=== PATIENT | male | born 1960 | race Caucasian/White ===

== ENCOUNTER 2023-02-09 19:44 | Emergency (ER) | payer OTHER, MEDICAID, SELFPAY ==
[2023-02-09 19:46] VITALS: BP 179/101; PULSE 105; RESP 15; TEMP 36.7; O2SAT 100; BMI 19.8
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
[2023-02-09 20:52] LABS: Ur Creatinine Normal (Normal); Ur Specific Gravity Normal (Normal); Urine pH Normal (Normal)
[2023-02-09 20:53] LABS: UR Morphine/Opiate cutoff 300 Negative (Negative); Urine Amphetamines Positive (Negative); Urine Barbiturates Negative (Negative); Urine Benzodiazepines Negative (Negative); Urine Cocaine Negative (Negative); Urine MDMA Positive (Negative); Urine Methadone Negative (Negative); Urine Methamphetamines Positive (Negative); Urine Oxycodone Negative (Negative); Urine Phencyclidine Negative (Negative); Urine Tetrahydrocannabinol Positive (Negative); Urine Tricyclic Antidepressant Negative (Negative)
--- NOTE | 2023-02-09 21:30 | PC.NURSE ---
attempted to draw blood, pt refused, then changed his mind, mechanical laboratory technician was in to draw blood, pt moved and dislodged the needle then stated he did not want to be poked again. then was asked by nurse if he would allow us to draw blood, pt stated he did not want to be poked on, explained to pt that detox would require lab work. pt stated he did not want detox, pt was told then the doctor would be told and he dc paper work will be brought in. pt came out to the nurses station told the pt he needed to wait in his room or the waiting room, pt then stated he would wait in the waiting room but he needed to get a ride, explained to pt that we did not provide rides that would be his responsibility and that he could call from the waiting room. pt became up set and stated it was a 10 mile walk pt ambulated to the waiting room without difficulty
== END 2023-02-09 21:15 | disposition home or self-care (01) ==
PROVIDERS: Emergency Provider Emergency Medicine
DX: F11.10 Opioid abuse, uncomplicated (principal)
CPT/HCPCS: 80305; 99282; 99283

== ENCOUNTER 2024-04-20 14:19 | Emergency (ER) | payer OTHER, MEDICAID, SELFPAY ==
[2024-04-20 14:22] VITALS: BP 121/74; PULSE 78; RESP 18; TEMP 36.8; O2SAT 98; BMI 22.4
--- NOTE | 2024-04-20 14:27 | DI.RAD.S_ITS ---
PROCEDURE: XR WRIST RT MIN 3V INDICATIONS: fell on bottle, cutting right wrist, diminished sens/movemnt TECHNIQUE: 4 views of the wrist were acquired. COMPARISON: None. FINDINGS: Bones: No fractures or dislocations. No suspicious bony lesions. Soft tissues: No suspicious soft tissue calcifications. Volar laceration. IMPRESSION: No acute bony abnormality. Dictated by: Kofi Mata M.D. on 04/20/2024 at 14:57 Approved by: Kofi Mata M.D. on 04/20/2024 at 14:58
--- NOTE | 2024-04-20 14:27 | DI.RAD.S_ITS ---
PROCEDURE: XR FOREARM RT 2V INDICATIONS: fell on bottle, cutting right wrist, diminished sens/movemnt TECHNIQUE: 2 views of the forearm were acquired. COMPARISON: None. FINDINGS: Bones: No fractures or dislocations. No suspicious bony lesions. Soft tissues: No suspicious soft tissue calcifications or masses. Volar laceration. No radiopaque foreign body. IMPRESSION: No acute bony abnormality. Dictated by: Kofi Mata M.D. on 04/20/2024 at 14:53 Approved by: Kofi Mata M.D. on 04/20/2024 at 14:53
--- NOTE | 2024-04-20 16:06 | PC.NURSE ---
Pt is not able to move middle finger of right hand. Finger is dangling and appears flacid. Bleeding controlled. bandage around right forearm/wrist.
--- NOTE | 2024-04-20 16:36 | ED_ITS ---
HPI - Wound/Laceration General Chief Complaint: Wound/Laceration Stated Complaint: Fell down two stiars, wrist lac Time Seen by Provider: 04/20/24 16:19 Source: patient, EMS, RN notes reviewed and old records reviewed Mode of arrival: EMS Limitations: no limitations History of Present Illness HPI narrative: 64-year-old male history of tobacco abuse, opiate use who presents with complaint of laceration to the right forearm/wrist. Patient states he was going down some steps got caught up in a friend's foot fell forward with his arm outstretched and fell onto the ground but there was a glass jar in the ground t hat he stuck his hand into it shattered and cut his hand in several places. Patient states it bled quite a bit. He notes that he has had some difficulty particularly moving the 3rd finger and feels like it is numb has a little bit decreased use of the 4th and 5th fingers but can feel them. 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 States he has good movement of the thumb. Patient states he landed on his shoulder as well but states he is good range of motion denies any other injuries. Denies any significant head injury denies any neck pain or chest pain, no GI or urinary symptoms. Patient states he was not on a daily prescription medications states his tetanus is updated in the last 5 years. Denies any allergies to medications. Does use tobacco daily, denies regular alcohol use, states he uses fentanyl regularly. Related Data Previous Rx's Medication Instructions Recorded cephalexin 500 mg capsule 500 mg PO QID #20 caps 04/20/24 hydrocodone 5 mg-acetaminophen 325 1 tab PO Q6H PRN pain #10 tabs 04/20/24 mg tablet Allergies Allergy/AdvReac Type Severity Reaction Status Date / Time No Known Drug Allergies Allergy Verified 02/09/23 19:48 Review of Systems Review of Systems ROS Unobtainable: All systems reviewed & are unremarkable except as noted in HPI and below Patient History Social History Smoking Status: Current every day smoker Smoking Status: Current every day smoker tobacco type: cigarettes alcohol intake frequency: holidays/special occasions only Exam Narrative Exam Narrative: GENERAL: Alert and oriented x three, male in mild distress HEENT: Head normocephalic, atraumatic, EOMI, pupils reactive, face symmetric, moist mucous membranes NECK: Supple, full range of motion CARDIOVASCULAR: Regular rate and rhythm without murmurs, rubs or gallops. RESPIRATORY: Breath sounds equal bilaterally, no wheezes rales or rhonchi. ABDOMEN: Soft, nontender. Normoactive bowel sounds all 4 quadrants. No guarding or rebound, rigidity, no mass : No CVA tenderness EXTREMITIES: Normal range of motion at right shoulder and elbow, patient has good movement of the wrist but is painful. He can flex and extend his thumb has movement of the 4th and 5th digits but has minimal movement of the 3rd digit. Has decreased sensation of the 3rd digit has had a traumatic amputation distal to the middle interphalangeal joint which appears healed. Has cap refill less than 2 seconds in all 5 fingers. Evaluation of the midline incision proximally 3-1/2 cm into the soft tissue I can see exposure of the tendon and with movement particularly of the 3rd finger I can see movement of the tendon but no connection that appears to be severed completely. Unclear if any nerve involvement but patient does have decreased sensation and middle finger. There appears to be little bit of fascial or tendon involvement just adjacent but has no movement with the other fingers. Patient's ulnar side laceration proximally 2 cm into the soft tissue but does not appear to have any tendon or vascular involvement.. Patient has a deep callus which appears split over the thenar eminence but does not appear to be lacerated. 2+ radial pulse. No bony tenderness of the hand,, wrist, forearm or elbow , no clubbing or edema. Neurovascularly intact NEUROLOGICAL: Cranial nerves II through XII grossly intact. Moving all extremities SKIN: Warm, dry, no petechiae, no rashes or lesions other than noted above. Initial Vital Signs Initial Vital Signs: Vital Signs Temperature 98.2 F 04/20/24 14:22 Pulse Rate 78 04/20/24 14:22 Respiratory Rate 18 04/20/24 14:22 Blood Pressure 121/74 04/20/24 14:22 Pulse Oximetry 98 04/20/24 14:22 Oxygen Delivery Method Room Air 04/20/24 14:22 Course Orders Ordered: ED Orders 04/20/24 14:27 XR forearm RT 2V Stat XR wrist RT min 3V Stat 04/20/24 17:48 Consult to [facility] [place] - Administrative And Program Specialist Stat Discontinued Medications Hydrocodone Bitart/Acetaminophen (Hydrocodone/Acet 5/325 Tablet) 1 tab PO NOW ONE Stop: 04/20/24 17:51 Last Admin: 04/20/24 18:00 Dose: 1 tab Documented By: Bacitracin (Bacitracin Oint 0.9 Gm Pckt) 1 applic TOP NOW ONE Stop: 04/20/24 17:52 Last Admin: 04/20/24 18:00 Dose: 1 applic Documented By: Cephalexin HCl (Cephalexin 250 Mg Capsule) 500 mg PO NOW ONE Stop: 04/20/24 17:51 Last Admin: 04/20/24 18:00 Dose: 500 mg Documented By: Lidocaine HCl (Lidocaine 2% Inj Sdv 5ml) 2 ml INJ NOW ONE Stop: 04/20/24 16:45 Morphine Sulfate (Morphine 4 Mg/Ml Inj) 4 mg IM NOW ONE Stop: 04/20/24 16:45 Last Admin: 04/20/24 16:49 Dose: 4 mg Documented By: Vital Signs Vital signs: Vital Signs - 8 hr 04/20/24 14:22 04/20/24 18:38 Temperature 98.2 F 98.4 F Pulse Rate 78 66 Respiratory Rate 18 16 Blood Pressure 121/74 134/78 Pulse Oximetry 98 98 Oxygen Delivery Method Room Air Room Air MDM - Wound/Laceration Imaging Data Extremity x-ray #1: Radiologist's Impression: [place] [address] XRay Report Signed Patient: Mike Lam MR#: [id number] : 1960 Acct:[id number] Age/Sex: 64 / M Date of Service: 04/20/24 Loc: ED Accession Number: [id number] Procedure: XR forearm RT 2V Ordering Provider: Layne Del Cid D.O. PROCEDURE: XR FOREARM RT 2V INDICATIONS: fell on bottle, cutting right wrist, diminished sens/movemnt TECHNIQUE: 2 views of the forearm were acquired. COMPARISON: None. FINDINGS: Bones: No fractures or dislocations. No suspicious bony lesions. Soft tissues: No suspicious soft tissue calcifications or masses. Volar lace ration. No radiopaque foreign body. IMPRESSION: No acute bony abnormality. Dictated by: Kofi Mata M.D. on 04/20/2024 at 14:53 Approved by: Kofi Mata M.D. on 04/20/2024 at 14:53 Extremity x-ray #2: Radiologist's Impression: Close Wrist X-Ray (Signed) Kofi Mata - 04/20/24 Forearm X-Ray (Signed) Kofi Mata - 04/20/24 Launch?[address] [address] XRay Report Signed Patient: Mike Lam MR#: [id number] : 1960 Acct:[id number] Age/Sex: 64 / M Date of Service: 04/20/24 Loc: ED Accession Number: [id number] Procedure: XR wrist RT min 3V Ordering Provider: Layne Del Cid D.O. PROCEDURE: XR WRIST RT MIN 3V INDICATIONS: fell on bottle, cutting right wrist, diminished sens/movemnt TECHNIQUE: 4 views of the wrist were acquired. COMPARISON: None. FINDINGS: Bones: No fractures or dislocations. No suspicious bony lesions. Soft tissues: No suspicious soft tissue calcifications. Volar laceration. IMPRESSION: No acute bony abnormality. Dictated by: Kofi Mata M.D. on 04/20/2024 at 14:57 Approved by: Kofi Mata M.D. on 04/20/2024 at 14:58 [facility] Narrative Medical decision making narrative: Right Forearm x-ray is negative Right Wrist x-ray is negative. 64-year-old male reports fall with laceration lateral laceration does not appear to have any tendon involvement but midline laceration on the volar side appears to have tendon involvement and has and appears to be fully transected. Patient had suture repair but spoke with Dr. Almendarez from Orthopedic surgery prior to closure of the midline laceration she will have patient return for tendon repair in the OR. Patient was washed out here in the department, states tetanus is up-to-date was started on antibiotics. Short course of oral antibiotic and pain medication was provided with return precautions. Dr. Paz orthopedic surgery, discussed tendon appears to be lacerated likely Trejo through possibly radial carpal versus digitorum profundus. Recommends antibiotics, closure of the wound and we will have patient OR possibly tomorrow or the following day. Korina Paz orthopedic surgery called back. Plan for OR on April 22Saturday at 0900 checkin time. 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 States he does have a place to stay, states he was able to access transportation states he can fill prescriptions. Discharge Plan Departure Patient Disposition: Home Clinical Impression: Tendon laceration, Laceration of right wrist Instructions: DI for Laceration Repair Activity Restrictions/Additional Instructions: Return to [facility] to check in for surgery at 9:00 a.m. on SaturdayApril [address] Paz for tendon repair. You will need follow up in 7-10 days for removal of the sutures not related to your surgery. You can follow up with primary care, urgent care or the emergency department for suture removal. Take oral antibiotics until completed. You can take [place] 1-2 tablets every 6 hours as needed for pain. This medication can make you sleepy do not drive, perform hazardous activities or make any major decisions while taking it. This medication will make you constipated please take a stool softener once to twice daily until stools are soft and regular. Prescription sent to [facility] in [place]. Wound Care: Keep wound(s) clean and dry. Wash daily with soap and water only. Do not use over the counter products (alcohol or peroxide)on the wounds unless instructed by a physician. You can use triple antibiotic ointment to the affected area If wound condition worsens (increased/expanding redness, developing fluid blisters, or worsening pain), either contact your doctor for an urgent re- assessment , or return to the Emergency Department. Please return for fevers, any redness, swelling, increasing pain, new numbness tingling or weakness, discoloration that is pale, blue were read of your fingers or hand or other new or concerning changes. Prescriptions: New cephalexin 500 mg capsule 500 mg PO QID Qty: 20 0RF hydrocodone-acetaminophen 5-325 mg tablet 1 tab PO Q6H PRN (Reason: pain) Qty: 10 0RF Referrals: Katia Paz MD [Physician] - Stand Alone Forms: Patient Portal/API/Survey
[2024-04-20] MEDS: MORPHINE 4 MG/ML INJ IM (16:49)
[2024-04-20] MEDS: HYDROCODONE/ACET 5/325 TABLET 1 TAB PO (18:00)
[2024-04-20] MEDS: BACITRACIN OINT 0.9 GM PCKT 1 APPLIC TOP (18:00)
[2024-04-20] MEDS: cephALEXin 250 MG CAPSULE 500 MG PO (18:00)
--- NOTE | 2024-04-20 18:30 | PC.NURSE ---
Volar splint placed to right wrist. Pt tolerated well.
--- NOTE | 2024-04-20 18:34 | CM.SWNOTE ---
ED CAP SEWER Assessment Note: Pt is a 64yo male, resident of [place], presents to the ED for a wrist laceration after a fall. Pt lives in a house XXX. Pt's Primary Care Provider is XXX and insurance is XXX. Reviewed chart and discussed with multidisciplinary team pt's medical status and initial discharge needs. CAP SEWER entered room to meet with patient, introduced self and role. Pt endorses? Recommendation of providers, plan? CAP SEWER reviews this with ED provider XXX who indicates agreement and understanding. Plan: Pt to discharge with XXX. HAYLIE Mcneil
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
[2024-04-20 18:38] VITALS: BP 134/78; PULSE 66; RESP 16; TEMP 36.9; O2SAT 98
== END 2024-04-20 18:39 | disposition home or self-care (01) ==
PROVIDERS: Emergency Provider Emergency Medicine
DX: S66.821A Laceration of other specified muscles, fascia and tendons at wrist and hand level, right hand, initial encounter (principal); W01.110A Fall on same level from slipping, tripping and stumbling with subsequent striking against sharp glass, initial encounter
CPT/HCPCS: 12001; 29125; 73090; 73110; 96372; 99284; J2270

== ENCOUNTER 2024-04-22 09:02 | Day surgery (SDC) | payer OTHER, SELFPAY ==
[2024-04-22 09:52] VITALS: BP 130/84; PULSE 85; RESP 18; TEMP 36.4; O2SAT 98; BMI 22.4
--- NOTE | 2024-04-22 09:59 | P.HP_ITS ---
History of Present Illness History of Present Illness Date Patient Seen: 04/22/24 Time Patient Seen: 09:59 Date of Onset of Symptoms: 04/20/24 Chief complaint: Right Incision and Drainage Wound/Extremity Narrative: The patient is a 64-year-old male that is left-hand dominant. He fell going down stairs and landed on a glass jar sustaining laceration to his volar right wrist. He has seen 2 separate lacerations 1 just proximal to the wrist crease in 1 at the base of the thumb metacarpal, CMC joints. 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 He endorses pain difficulty moving his middle finger and numbness in his palmar hand since the injury. He was seen in the emergency room wounds were closed and he was given a prescription for antibiotics and referred to Orthopedic surgery. Lives in his car. He was indicated for surgery for exploration possible repair of structures as indicated and presents for surgery today. He denies any other injuries. He denies any allergies to medications. States he has not picked up his antibiotic prescription yet. He notes that he can move his middle finger but it hurts to. [facility] Medical History Amputation of finger, right Social History Smoking Status: Current every day smoker alcohol intake: current Meds Home Medications and Allergies Home Medications Medication Instructions Recorded Confirmed Type cephalexin 500 mg capsule 500 mg PO QID #20 caps 04/20/24 Rx hydrocodone 5 mg-acetaminophen 325 1 tab PO Q6H PRN pain #10 tabs 04/20/24 Rx mg tablet Allergies Allergy/AdvReac Type Severity Reaction Status Date / Time No Known Drug Allergies Allergy Verified 02/09/23 19:48 Review of Systems Review of Systems ROS: Yes All systems reviewed with the patient and are negative except as otherwise documented Exam Vital Signs (past 8 hours): - 04/22/24 09:52 Temperature 97.5 F L Pulse Rate 85 Respiratory Rate 18 Blood Pressure 130/84 Pulse Oximetry 98 Oxygen Delivery Method Room Air Oxygen Delivery Method Room Air Narrative Exam Narrative: Alert and oriented male in no acute distress Respiratory lungs clear to auscultation Heart regular rate and rhythm Nontoxic appearing Left upper extremity benign. Right upper extremity demonstrates previous amputation of the index finger at the proximal phalanx well-healed stump. There are 2 volar lacerations. One central volar laceration at the level of the wrist crease with some nylon sutures. A smaller more radial laceration around the basilar thumb area that is also sutured. There was no streaking no purulence or drainage. The patient's hand is in a resting position with flexion of the small and ring finger and extension of the middle finger. With effort the patient was able to demonstrate some active flexion of the middle finger with pain. He does demonstrate thumb IP joint flexion and extension. Appears to have an altered flexion and extension of the ring and small finger. He endorses decreased sensation over the palmar median nerve distribution. Fingers are warm and well perfused. Elbow is benign. Endorses sensation along the radial aspect of the ring finger as well as ulnar aspect. Objective Imaging X-ray right wrist: My impression: Three views of the right wrist AP oblique and lateral demonstrate partial visualization of the known index finger amputation through proximal phalanx with deformity at the index metacarpal. No acute fracture is demonstrated. Assessment & Plan Assessment and plan (1) Laceration of right wrist: Qualifiers: Encounter type: initial encounter Qualified Code(s): S61.511A - Laceration without foreign body of right wrist, initial encounter Status: Acute (2) Tendon laceration: Status: Acute Plan Patient was two volar wrist lacerations with a suspected tendon and potential nerve involvement. Level of the largest lacerations right at the wrist crease concern for FDS and median nerve injury. He will require open exploration of the lacerations and repair of structures as possible. I discussed with the patient that these can include vessels tendons and nerves. I discussed variable recovery with nerve injury may have permanent numbness stiffness pain and lack of motion we will require additional procedures. The risks and benefits of the procedure have been discussed with the patient and given the opportunity to ask questions. The risks of surgery include but are not limited to infection, persistent dysfunction, persistence of pain, damage to nerves and blood vessels, posttraumatic arthritis, DVT, PE, cardiopulmonary complications and . The patient expressed a thorough understanding of the risks and benefits of surgery and has elected to proceed. Consent was signed. Time-Based Coding :: [TOTAL MINUTES] spent with patient and on the chart (including review of chart, obtaining history, exam, reviewing outside data, placing orders, documenting exam and treatment plan, and counseling patient) on [DATE].
[2024-04-22] MEDS: CEFAZOLIN 2 GM/100 ML PREMIX 100 ML IV (12:15)
--- NOTE | 2024-04-22 12:24 | SUR.OPER ---
Supine on padded OR bed, head on pillow, arms secured on padded arm boards at <90 degrees abduction, legs uncrossed, safety belt at thigh, tape over blanket over lower legs.
[2024-04-22] MEDS: BUPIVACAINE 0.25% W/ EPI 30 ML VIAL 60 ML INJ (12:31)
[2024-04-22] MEDS: LACTATED RINGERS 1,000 ML 42 ML IV (13:43)
[2024-04-22 14:27] VITALS: BP 111/64; PULSE 85; RESP 14; TEMP 36.7; O2SAT 95
[2024-04-22 14:32] VITALS: BP 109/71; PULSE 83; RESP 14; O2SAT 94
--- NOTE | 2024-04-22 14:33 | P.OP_ITS ---
Operative Date/Time/Diagnoses Date of procedure: 04/22/24 Time of procedure: 14:35 Pre-op diagnosis: Right wrist laceration deep flexor tendon injury, nerve injury Post-op diagnosis: other (Laceration wrist transverse 5 cm deep, complete median nerve laceration, complete flexor digitorum profundus and flexor digitorum superficialis to the middle finger, flexor digitorum profundus to the index finger and flexor digitorum superficialis to the ring finger and laceration palmaris longus) Procedure & Clinicians Procedure: 1. Repair median nerve CPT code 07135 right 2. Carpal tunnel release CPT code 65369 right 3. Repair flexor digitorum profundus to the middle finger CPT code 53614 4. Repair flexor digitorum superficialis to the middle finger CPT code 84733 5. Repair flexor digitorum superficialis to the ring finger CPT code 16294 6. Repair flexor digitorum profundus to the index finger CPT code 82141 7. Exploration laceration right wrist CPT code 65267 right 8. Repair wrist laceration right modifier 59 for separate site separate wrist laceration from the structures listed above Same procedure as scheduled: Yes Indications: The patient is a 64-year-old left-hand dominant male that fell on a glass jar and sustained a 4-1/2 cm transverse laceration to his volar right wrist he also sustained a separate 3 cm laceration at the base of thumb metacarpal. He was noted to have no active flexion of his middle finger he did have active flexion of the ring and small finger. He has a previous index finger partial amputation at the level of the proximal phalanx that is remote injury. He endorses numbness in the palmar distribution of his median nerve. He was indicated for exploration of his lacerations and repair of structures as indicated. The risks and benefits of the procedure have been discussed with the patient and given the opportunity to ask questions. The risks of surgery include but are not limited to infection, malunion, nonunion, persistence of pain, damage to nerves and blood vessels, posttraumatic arthritis, DVT, PE, coardiopulmonary complications and . The patient expressed a thorough understanding of the risks and benefits of surgery and has elected to proceed. Consent was signed --we further discussed the risks of stiffness infection continued dysfunction tendon rerupture, unpredictable nature of nerve injury and recovery. Surgeon: Katia Paz Click Yes if Unassisted: Yes Anesthesia Type: General and Local Operative Notes Findings: a 5 cm transverse laceration at the level of the wrist crease. Complete transsection of the median nerve at the level of the wrist crease Complete transection of the palmaris longus and FDS and FDP to the middle finger at the level of the wrist crease complete laceration of the FDP to the index fin tristin and 50% laceration of the FDS to the ring finger Separate 3 cm laceration of the radial wrist the base of the thumb metacarpal no obvious significant deep structure injury at the site. FCR intact. FPL intact Closure Type: primary Specimen(s): none sent Estimated Blood Loss (mL): 20 Blood products transfused: none Tourniquet time (min): 81 Procedure in detail: The patient was seen in the preoperative area the site of surgery was marked informed consent confirmed this was the right wrist. The patient was then brought to the operating room by the anesthesia team positioned supine on operative table with a hand table on the right side. The right upper extremity was prepped and draped in the standard sterile fashion with formal time-out procedure confirming the patient's side and site of surgery administration of appropriate preoperative antibiotic. All were in agreement. Attention was turned to the right upper extremity the Esmarch was used for exsanguination the tourniquet raised on the brachium to 250 mmHg. Attention was turned to the wrist. There was a transverse laceration at the level of the wrist crease was approximately 5 cm and this was explored and was deep with obvious tendon lacerations. And the 2nd 3 cm laceration at the radial thumb was also explored this had rough edges and these were carefully excised using sharp scalpel along the 3 cm laceration and this was debrided. Of skin subcutaneous tissue. It was repaired at the end of the case with 4-0 Monocryl 4-0 nylon suture Attention then turned to the transverse laceration at the wrist crease this was about 5 cm long. This was explored noted to have obvious tendon lacerations deep in the wound on exploration of the median nerve was also encountered with complete transection. At this point the scalpel was used to extend the t ransverse incision in fashion curvilinear proximal and then angulated across the wrist crease over the carpal tunnel distally. The carpal tunnel was opened and released to trace the median nerve distally and the forearm was opened proximally to trace the median nerve and tendinous structure ruptures proximally. Once these were exposed the findings identified above were determined. There was a palmaris longus transection this was not repaired. Then the repair started deep to superficial. The wrist and fingers were brought into flexion a 2-0 FiberWire was used in a locking stitch [place] fashion to repair the FDP to the middle finger and the FDP to the index finger. And to then another 2-0 FiberWire was used to repair the greater than 50% laceration of the FDS of the ring finger. Next the FDS to the middle finger was repaired again with a 2-0 FiberWire. After this was completed the median nerve was exposed and carefully approximated and repaired in epineurial fashion with 4 si mple 6 0 nylon sutures placed at 90? from each other 360 around the nerve with care to try to line up the fascicles. Once this was completed the wound was irrigated thoroughly the tourniquet was released hemostasis was achieved. The wound was closed with 2-0 Vicryl 4-0 Monocryl and 3-0 and 4-0 nylon suture with care to maintain the wrist and fingers in flexion to take tension off the repairs. Local anesthetic was administered for postoperative pain control and then a dressing was placed with Xeroform gauze Webril and a splint in wrist and finger flexion to protect the repair. Patient was awoken from anesthesia and taken to the recovery room in good condition there were no immediate complications from the procedure. Counts were correct. Complications: none Post-operative Condition: stable Disposition: PACU Plan for aftercare: Keep the dressing and splint in place until 1st postoperative appointment. Elevate the hand. Keep the splint dry. It was okay to wiggle the fingers lately but no forceful gripping or stretching of the fingers no lifting objects heavier than a phone. After 1st postop we will get removable splint with the hand therapist. We will keep splint on except for exercises with direction of therapist. Stitches will stay in 2-4 weeks. Weaning from splint we will start at 6 weeks postop. We will wear a splint at night until week 10. Can lift up to 5 lb at 10 weeks 10 lb at 12 weeks. Nerve recovery is variable and can take months.
[2024-04-22 14:36] VITALS: BP 110/66; PULSE 90; RESP 12; O2SAT 96
[2024-04-22 14:41] VITALS: BP 106/68; PULSE 86; RESP 12; TEMP 36.6; O2SAT 96
[2024-04-22] MEDS: OXYCODONE IR 5 MG TABLET PO (14:46)
[2024-04-22 16:51] VITALS: BP 115/75; PULSE 81; RESP 15; TEMP 36.6; O2SAT 99
== END 2024-04-22 16:53 | disposition home or self-care (01) ==
PROVIDERS: Referring Provider Orthopaedic Surgery Foot and Ankle Surgery; Visit Provider Orthopaedic Surgery Foot and Ankle Surgery
PROC: (CPT 64835; principal; 2024-04-22 12:15)
DX: S61.511A Laceration without foreign body of right wrist, initial encounter (principal); S64.11XA Injury of median nerve at wrist and hand level of right arm, initial encounter; S66.124A Laceration of flexor muscle, fascia and tendon of right ring finger at wrist and hand level, initial encounter; S66.122A Laceration of flexor muscle, fascia and tendon of right middle finger at wrist and hand level, initial encounter; S66.120A Laceration of flexor muscle, fascia and tendon of right index finger at wrist and hand level, initial encounter; W10.9XXA Fall (on) (from) unspecified stairs and steps, initial encounter; F17.210 Nicotine dependence, cigarettes, uncomplicated
CPT/HCPCS: 64835; 25260 ×2; 26370 ×2; 20103; J0330; J0690; J1100; J1171; J1885; J2250; J2405; J2704; J3010

== ENCOUNTER 2024-05-15 12:00 | Inpatient (IN) | payer OTHER, SELFPAY ==
--- NOTE | 2024-05-15 13:54 | PC.NURSE ---
Day shift: Pt has not arrived at this time 8135. Dr Paz is aware of him not being here yet. He is a direct admit.
--- NOTE | 2024-05-15 15:01 | P.HP_ITS ---
History of Present Illness History of Present Illness Date Patient Seen: 05/15/24 Time Patient Seen: 15:01 Chief complaint: right wrist Infection Narrative: The patient is a 64-year-old left-hand dominant male that fell on a glass jar and sustained a 4-1/2 cm transverse laceration to his volar right wrist he also sustained a separate 3 cm laceration at the base of thumb metacarpal. He was noted to have no active flexion of his middle finger he did have active flexion of the ring and small finger. He has a previous index finger partial amputation at the level of the proximal phalanx that is remote injury. He underwent surgery by Dr Paz on 04/22/2024, FDS and FDP repair of the middle finger and repair of the median nerve. He saw Dr Paz in the office earlier today for a routine follow up visit. He had some persistent erythema around his incision but was found to have a new area of swelling/boil formation just ulnar to the previous incision and proximal to the wrist crease. [facility] Medical History (Updated 05/15/24 @ 15:09 by Regine Mckay PA-C) Current recreational drug use Amputation of finger, right Surgical History (Updated 05/15/24 @ 09:41 by Kimberlyn Fan RN) History of orthopedic surgery (04/22/24) Social History Smoking Status: Current every day smoker alcohol intake: current Meds Home Medications and Allergies Home Medications Medication Instructions Recorded Confirmed Type cephalexin 500 mg capsule 500 mg PO QID #20 caps 04/20/24 Rx cephalexin 500 mg capsule 500 mg PO TID #15 caps 04/22/24 Rx gabapentin 300 mg capsule 300 mg PO TID #30 caps 04/22/24 Rx ondansetron 4 mg disintegrating 4 mg PO Q8HR PRN nausea and 04/22/24 Rx tablet vomiting #5 tabs oxycodone 5 mg tablet 5 mg PO Q4H PRN pain #30 tabs 04/22/24 Rx Allergies Allergy/AdvReac Type Severity Reaction Status Date / Time No Known Drug Allergies Allergy Verified 02/09/23 19:48 Review of Systems Review of Systems ROS: Yes All systems reviewed with the patient and are negative except as otherwise documented Exam Extrem Other: RUE exam shows grossly normal alignment. Incision is healing and there is some scabbing distally. No drainage from the incision. Focal erythema around incision. There is a new swelling or boil with fluctuance ulnar to the incision line concerning for underlying abscess. He is able to fully flex and extend his ring and small fingers. He has full extension and limited flexion of the middle finger and no active FDP function. Previous index finger amputation. Demonstrates thumb flexion and extension. Stable numbness in median nerve distribution. Objective Labs Labs: CBC, BMP, ESR, CRP ordered and pending. Assessment & Plan Assessment and plan (1) Abscess of hand, right: Status: Acute Plan Examination of the hand concerning for abscess formation, and pt was directly admitted from the office to the hospital for IV antibiotics. Plan is for surgical exploration and wash-out tomorrow by Dr Paz. Time-Based Coding :: [TOTAL MINUTES] spent with patient and on the chart (including review of chart, obtaining history, exam, reviewing outside data, placing orders, documenting exam and treatment plan, and counseling patient) on [DATE].
[2024-05-15 15:33] VITALS: BMI 18.4
[2024-05-15 16:11] VITALS: BMI 18.4
[2024-05-15 16:25] LABS: Hematocrit 33.9 % (41-53); Hemoglobin 11.6 g/dL (13.5-17.5); Mean Corpuscular HGB Conc 34.1 % (30-36); Mean Corpuscular Hemoglobin 30.3 PG (26-34); Mean Corpuscular Volume 88.9 fL (80-100); Platelet Count 276 X10^3/uL (150-400); Red Blood Cell Count 3.81 X10^6/uL (4.5-5.9); Red Cell Distribution Width 13.1 % (11.6-14.8); White Blood Cell Count 7.6 X10^3/uL (4.5-11.0)
[2024-05-15 16:40] LABS: Estimated Glomerular Filt Rate > 60 mL/min (>60)
[2024-05-15 16:43] LABS: Neutrophils Absolute Manual 5928 /uL (3000-5900); RBC Morphology Normal Morphology; Total Cells Counted 100
[2024-05-15 16:44] LABS: C-Reactive Protein Quant < 0.5 mg/dL (<1.0)
[2024-05-15] MEDS: LACTATED RINGERS 1,000 ML 42 ML IV (16:56)
[2024-05-15] MEDS: PIPERACILLIN/TAZO 3.375 GM in SODIUM CHLORIDE 0.9% 100 ML IV (16:57)
[2024-05-15 16:59] LABS: Erythrocyte Sedimentation Rate 31 MM/HR (0-15)
[2024-05-15 17:18] LABS: BUN Creatinine Ratio 38.3 (6-22); Blood Urea Nitrogen 23 mg/dL (9-20); Calcium 8.8 mg/dL (8.4-10.2); Carbon Dioxide 23 mmol/L (22-32); Chloride 103 mmol/L (98-107); Estimated Glomerular Filt Rate > 60 mL/min (>60); Glucose 136 mg/dL (80-110); HEMOLYSIS 38 (0-50); Potassium 4.2 mmol/L (3.4-5.1); Sodium 137 mmol/L (137-145)
--- NOTE | 2024-05-15 17:22 | PC.NURSE ---
Patient admitted for r.wrist infection, he is going to have an i&d in the morning. Patient is alert and oriented x4, he is getting LR at 42cc/hr and also some zosyn now. Photos can be seen under notes.
[2024-05-15] MEDS: VANCOMYCIN 1,250 MG/250 ML PIGGYBACK 250 MG IV (18:09)
[2024-05-15 18:32] VITALS: BP 114/69; PULSE 68; RESP 20; TEMP 36.6; O2SAT 98
[2024-05-15 20:00] VITALS: BP 136/85; PULSE 70; RESP 19; TEMP 36.8; O2SAT 98
[2024-05-15 20:17] VITALS: BP 136/85; PULSE 70; RESP 18; TEMP 36.8; O2SAT 98
[2024-05-15] MEDS: ACETAMINOPHEN 325 MG TABLET 650 MG PO (21:30)
[2024-05-16] VITALS (15 sets, daily range): BP systolic 124–167; BP diastolic 15–105; PULSE 60–96; RESP 12–20; TEMP 36.2–37.5; O2SAT 96–100; BMI 18.4
[2024-05-16] MEDS: PIPERACILLIN/TAZO 3.375 GM in SODIUM CHLORIDE 0.9% 100 ML IV ×3 (00:49→20:17)
[2024-05-16] MEDS: VANCOMYCIN 1,250 MG/250 ML PIGGYBACK 250 MG IV ×2 (02:38→16:51)
[2024-05-16] MEDS: OXYCODONE IR 10 MG TABLET PO ×3 (03:27→16:55)
--- NOTE | 2024-05-16 03:30 | PC.NURSE ---
Patient made this RN aware that he took fentanyl around 1600 on 05/15/2024 and will be withdrawing soon. Also states R wrist pain, 10mg of oxycodone given.
--- NOTE | 2024-05-16 07:53 | PM.PREOP ---
Pre-operative Note Interval Note History & Physical reviewed/Exam performed by Physician: Yes Changes to H&P: No
--- NOTE | 2024-05-16 08:14 | P.OP_ITS ---
Operative Date/Time/Diagnoses Date of procedure: 05/16/24 Time of procedure: 09:00 Pre-op diagnosis: Right wrist abscess, deep Surgical site infection, deep Traumatic wrist laceration with tendon involvement ,infection Rupture zone 5 hand flexor tendons-FDS and FDP to middle finger Opioid use disorder Post-op diagnosis: same Procedure & Clinicians Procedure: 1. Irrigation debridement skin subcutaneous tissue and tendon CPT code 15891, sharp excision abscess. 2. Repair FDS and FDP to middle finger Same procedure as scheduled: Yes Indications: The patient is a 64-year-old male, left-hand dominant that had a traumatic right wrist laceration with median nerve laceration and multiple zone 5 flexor tendon lacerations. He had a debridement and repair of his median nerve and flexor tendons onto 07/2024. Noted to have persistent erythema around the incision. Incision is healed but there is a new area of swelling and a boil, abscess starting to form ulnar to the previous incision for the wrist and just proximal to the wrist crease. He has not had fevers or chills but he has not resolved despite oral antibiotic treatment and the area has been increasing over the last few days. He was indicated for inpatient admission for IV antibiotics and operative treatment of his deep wrist infection and abscess. He also has noted decreased flexion of the D IP of the middle finger over the last week and a suspected to have ruptured his FDP to the middle finger. FDS appears intact. The risks and benefits of the procedure have been discussed with the patient and given the opportunity to ask questions. The risks of surgery include but are not limited to infection, need for additional procedures possible wound care for healing by secondary intention or wound VAC placement,, need for prolonged antibiotics persistence of pain, damage to nerves, persistence of nonbilious, incomplete recovery, risk of damage toblood vessels, stiffness, DVT, PE, cardiopulmonary complications and . The patient expressed a thorough understanding of the risks and benefits of surgery and has elected to proceed. Consent was signed. Surgeon: Katia Paz Click Yes if Unassisted: Yes Anesthesia Type: General and Local Operative Notes Findings: 2 x 3 cm area of fluctuance proximal to the previous transverse laceration ulnar to the extension of the healed previous incision Closure Type: primary Specimen(s): other (Tissue sent for culture and PCR) Estimated Blood Loss (mL): 30 Blood products transfused: none Tourniquet time (min): 70 Procedure in detail: The patient was seen in the preoperative area the site of surgery was marked informed consent confirmed this was the right wrist. He was noted to have some decreased with erythema with the IV antibiotics overnight but increased size of the abscess and fluctuance and indicated for surgical exploration and debridement. He was seen by the anesthesia team and then taken to the operative room and positioned supine on operative table with a hand table on the right side. Bony prominences were well padded. SCDs were on the legs. A brachial tourniquet was placed. The right upper extremity was prepped and draped in the standard sterile fashion . a formal time-out procedure was performed confirming the patient's side and site of surgery administration of the appropriate antibiotics. The patient was on scheduled vanc and Zosyn and Zosyn dosing at the time of surgery. All were in agreement. Attention was turned to the right hand. [place] exsanguination was completed. And the tourniquet raised on the arm to 250 mm of mercury. Attention was turned to the right wrist a slightly ulnar incision was made centered over the abscess and longitudinal. Total incision length approximately 7 cm. The abscess was ellipsed to size sharply with a scalpel with incision through the skin. The area of abscess was ellipsed size this was 2 x 1 cm. Tenotomy scissors were used to dissect through the subcutaneous tissues. This was done under loupe magnification. Incision was extended. To the level of the wrist crease and taken across the wrist crease in an extensile Z fashion. Flaps were opened. There was copious scar tissue and immediate purulence on incision over the abscess. Culture swabs were sent. Meticulous dissection was taken through the scarred tissue bed. The median nerve was visualized and protected. The previous repair site for the median nerve was visualized with the sutures and intact. The torn fiber wires suture repairs of the FDS and FDP for the middle finger were identified. The tendon and torn off away from the FiberWire on the FDS so the suture was intact but the was gapped. And the FDP was torn. The rongeur was used to remove nonviable synovium tendon and subcutaneous tissue. Once this was complete and the distal and proximal tendon ends were exposed the wound was irrigated with 3 L of saline using the cysto tubing. After this gloves and instruments were changed. The FDS and FDP tendon ends were grasped using the 2-0 FiberWire in a modified Reed suture with 4 core passes and a primary repair was attainable restoring flexor tendons to the middle finger. This was careful to be done in a symmetric excursion to the intact small and ring finger to avoid over tightening. There was significant scarring and extensive dissection was required. After the repair was completed finger was taken through range of motion no gapping was visualized. At this point the tourniquet was released and hemostasis was achieved using pressure. The bipolar cautery was also utilized. And Gelfoam and thrombin pad was used distally. After this was completed hemostasis was achieved. Vancomycin powder 1 g was placed within the wound. The wound was closed with 2-0 PDS and 3-0 nylon sutures. Was able to be approximated primarily. To aid with healing and drainage and swelling management and incisional wound VAC was placed the borders were reinforced and Adaptic was placed over the incision and the small wound VAC sponge was fashioned over the incision this was secured in taken to 125 mmHg suction. And good suction with appropriate seal was obtained. Kerlix dressing was applied and the patient was placed back into his dorsal blocking splint he was awoken from anesthesia and taken to the recovery room in good condition there were no immediate complications from this procedure. Complications: none Post-operative Condition: stable Disposition: PACU Plan for aftercare: Maintain right wrist and forearm dorsal blocking splint. May do gentle active flexion of the fingers and extension as limited by the dorsal blocking splint. Maximum 1 lb lift with the right hand. We will maintain incisional wound VAC through the weekend. And I will do a wound check on Saturday. Discussed with the patient depending on appearance he may need returned to OR this tentatively scheduled for Saturday but if looks okay on wound check on Saturday may discontinue with IV antibiotics. Anticipate need for continued outpatient antibiotics we will order PICC line. And wait for culture finalization. Internal medicine hospitalist were consulted to help with appropriate chronic pain management for this opiate dependent the patient. May also need social work help for this. Has been on Suboxone and methadone in the past. Not currently but was using fentanyl outside the hospital setting. We will be placed on some long-acting agents while in the hospital.
--- NOTE | 2024-05-16 08:26 | PC.NURSE ---
Day shift: Pt off unit for I&D at approx 0820. IV Antibiotic infusing per MAR.
--- NOTE | 2024-05-16 09:19 | SUR.OPER ---
Supine on padded OR bed, head on pillow, left arm secured on padded arm boardat <90 degrees abduction, right arm resting on hand table, legs uncrossed, safety belt at thigh, tape over blanket over lower legs.
--- NOTE | 2024-05-16 10:24 | PC.NURSE ---
Day shift: Pt remains of ACU at this time 1024.
[2024-05-16] MEDS: THROMBIN (RECOMBINANT) 5,000 UNIT VIAL 5000 UNIT TOP (10:47)
[2024-05-16] MEDS: VANCOMYCIN 1,000 MG VIAL 1000 MG TOP (10:48)
[2024-05-16] MEDS: OXYCODONE IR 5 MG TABLET PO (11:26)
[2024-05-16] MEDS: HYDROMORPHONE 1 MG INJ IV (11:41)
[2024-05-16] MEDS: LACTATED RINGERS 1,000 ML 100 ML IV (12:21)
[2024-05-16] MEDS: ACETAMINOPHEN 325 MG TABLET 650 MG PO ×2 (12:34→23:12)
[2024-05-16] MEDS: diphenhydrAMINE 25 MG TABLET 50 MG PO (12:34)
[2024-05-16] MEDS: HYDROMORPHONE 2 MG INJ IV ×4 (12:52→20:17)
--- NOTE | 2024-05-16 12:57 | PT-IP ANOTE ---
check with nurse and stated that pt is in tons of pain and is not ready to walk and do PT. will f/u.
--- NOTE | 2024-05-16 13:02 | PC.NURSE ---
Day shift: Pt back in room from PACU at approx 1200. He complaints of pain at surgery area. Medicated for pain per MAY. Can move fingers on rt hand but said It really hurts to move them. BP elevated 161/105 on arrival. RA 100%. Other VS WNL. Wound-Vac patent and functioning with no kinks in line. Rt hand/wrist has a brace in place. Pt also stated This really sucks coming down and off Fentanyl. Call light in reach. Pt did also void on arrival approx 450 mls clear yellow. Plan is for PICC line to be placed. IV Vanco causing burning sensation at left IV site. Stopped it and running LR per MAY. Agrees to not get OOB w/o help from staff. Instructed on I.S. use as well.
[2024-05-16] MEDS: METHADONE 10 MG TABLET 20 MG PO ×3 (14:35→20:09)
[2024-05-16] MEDS: GABAPENTIN 300 MG CAPSULE PO ×2 (14:35→20:08)
--- NOTE | 2024-05-16 14:51 | P.CONS_ITS ---
History of Present Illness Consult details Date Patient Seen: 05/16/24 Time Patient Seen: 13:30 Chief complaint: right wrist Infection Narrative: This is a 64-year-old male that fell on a glass jar and was status post median nerve and flexor tendon laceration repair earlier in april, in clinic follow up he had evidence of deep infection with fluctuance and erythema and is now s/p washout with orthopedic surgery. Medicine team was consulted for opiate use management. Patient takes $30 worth of fentanyl daily, also uses some methamphetamines. Denies EtOH symptoms. He states he gets withdrawal symptoms when not taking opiates. He denies any current symptoms, but does feel mildly anxious and sweaty after surgery. Pain is controlled at this time. Meds Home Medications and Allergies Home Medications Medication Instructions Recorded Confirmed Type gabapentin 300 mg capsule 300 mg PO TID #30 caps 04/22/24 05/15/24 Rx ondansetron 4 mg disintegrating 4 mg PO Q8HR PRN nausea and 04/22/24 05/15/24 Rx tablet vomiting #5 tabs hydromorphone 4 mg tablet 4 mg PO Q4H PRN pain 05/15/24 05/15/24 History Allergies Allergy/AdvReac Type Severity Reaction Status Date / Time No Known Drug Allergies Allergy Verified 05/16/24 08:36 Review of Systems Review of Systems Narrative: All other systems reviewed with the patient and are negative unless otherwise stated. Exam Vital Signs (past 8 hours): - 05/16/24 08:33 05/16/24 11:17 05/16/24 11:22 Temperature 97.8 F 97.1 F L Pulse Rate 67 96 H 93 H Respiratory Rate 16 15 14 Blood Pressure 124/76 153/79 H 167/15 H Pulse Oximetry 96 98 96 Oxygen Delivery Method Room Air Room Air Room Air Oxygen Flow Rate 05/16/24 11:27 05/16/24 11:32 05/16/24 11:37 Temperature 97.6 F Pulse Rate 89 82 82 Respiratory Rate 12 16 16 Blood Pressure 157/102 H 158/99 H 153/94 H Pulse Oximetry 98 98 99 Oxygen Delivery Method Room Air Room Air Room Air Oxygen Flow Rate 05/16/24 11:42 05/16/24 11:47 05/16/24 12:14 Temperature 97.6 F 98.4 F Pulse Rate 77 79 76 Respiratory Rate 16 16 16 Blood Pressure 156/97 H 147/96 H 161/105 H Pulse Oximetry 100 100 100 Oxygen Delivery Method Room Air Room Air Oxygen Flow Rate 0 05/16/24 12:45 05/16/24 13:56 Temperature 98.1 F Pulse Rate 60 75 Respiratory Rate Blood Pressure 162/95 H 158/97 H Pulse Oximetry 99 100 Oxygen Delivery Method Oxygen Flow Rate 0 Oxygen Delivery Method Room Air Oxygen Flow Rate 0 Narrative Exam Narrative: Gen: disheveled male, WDWN, no acute distress, mildly anxious appearing CV: RRR no m/r/g Pulm: CTA b/l Ext: No edema, R hand dressed, moves fingers well no numbness Objective Labs 05/15/24 16:15 05/15/24 16:15 Labs: Laboratory Results - last 24 hr 05/15/24 05/15/24 05/15/24 16:15 16:15 16:15 WBC 7.6 RBC 3.81 L Hgb 11.6 L Hct 33.9 L MCV 88.9 MCH 30.3 MCHC 34.1 RDW 13.1 Plt Count 276 Total Counted 100 Seg Neutrophils % 78.0 H Lymphocytes % (Manual) 19.0 L Monocytes % (Manual) 3.0 Neutrophils # (Manual) 5928 H RBC Morphology Normal morphology ESR 31 H Sodium 137 Potassium 4.2 Chloride 103 Carbon Dioxide 23 BUN 23 H Creatinine 0.60 L 0.60 L Estimated GFR > 60 > 60 BUN/Creatinine Ratio 38.3 H Glucose 136 H Calcium 8.8 C-Reactive Protein < 0.5 NT-Pro-B Natriuret Pep Cancelled [facility] Medical History (Updated 05/15/24 @ 15:09 by Regine Mckay PA-C) Current recreational drug use Amputation of finger, right Surgical History (Updated 05/15/24 @ 09:41 by Kimberlyn Fan RN) History of orthopedic surgery (04/22/24) Social History household members: none Tobacco & Substance Use Smoking Status: Current every day smoker alcohol intake: current Assessment & Plan Assessment & Plan narrative: 1. RUE abscess - management per orthopedic service, currently on zosyn and vancomycin, cultures pending - pain management as noted below 2. Opiate dependence and withdrawal - started methadone 20 QID, will increase prn pain control with oxycodone 10 mg and 15 mg prn, also have IV dilaudid as well. After surgery mild hypertension, tachycardia, and anxiety likely due to withdrawal already. - he likely has significant tolerance for opiates so may need higher dosing for pain control. - narcan is ordered in case of overdosing. Code: Full DVT: HSQ I have utilized all available immediate resources to obtain, update, or review the patient's current medications. Dispo: patient admitted under inpatient status. Will discharge home when able. Medicine will continue to follow along. Additional history obtained via discussions with the ER provider. These discussions contributed to the creation of the above assessment and plan. I have reviewed patient's presenting documentation, labs, and imaging personally. Time-Based Coding :: [TOTAL MINUTES] spent with patient and on the chart (including review of chart, obtaining history, exam, reviewing outside data, placing orders, documenting exam and treatment plan, and counseling patient) on [DATE].
--- NOTE | 2024-05-16 15:31 | CM.DANOTE ---
Initial DCP Assessment Note Pt is a 64 yo male, currently living in his RV- parked on a friend's property. Patient with initial injury to his wrist, He underwent surgery by Dr Paz on 04/22/2024. Patient admitted, Inpatient admission, anticipated stay least 3 days for culture and sensitivity final irrigation and antibiotic plan. S/p I+D of deep abscess. PCP: Did not assess, likely no PCP currently Payer: [employer] Reviewed chart, received consult request stating that patient requests assistance with treatment for substance use disorder. Met w/patient, introduced self. Patient complains of pain, drowsy. Remains polite. Patient reports he lives in his RV which is parked on a friend's property. Patient uses fentanyl and meth daily. Patient had weaned himself off fentanyl and meth approx a month or two ago - had been receiving Suboxone and Methadone at [facility]. Patient becomes upset, saying that Suboxone and Methadone still make you sick when you come off of it. Patient admits with prompting that Suboxone and Methadone act differently in the body than fentanyl and meth. Patient does not want to discuss KARIN treatment and recovery today, requests a visit another time. SW contact information left on white board. SW team will follow clinical course closely, anticipate further assessment of need at bedside. ALDA Moctezuma Discharge Planning/Care Management CM Discharge Assessment Start: 05/16/24 15:25 Freq: Status: Active Protocol: Document 05/16/24 15:25 MARTIN (Rec: 05/16/24 15:31 MARTIN [id number]) Discharge Planning Assessment Assigned Learning Disabilities Specialist ALDA Rachel DPOA/Assigned Designee Name mother Waterman Contact Information [phone] Advance Directives? No Advance Directives on File No History Provided By Patient,Medical Record Prior Living Arrangements RV Comment Patient has had his RV parked on a friend's property for approx a year Household Members none Type of transporation used prior to Drives own vehicle admit Independent with ADL's Yes Is patient alert and oriented? Yes Comment KARIN treatment/recovery resources Discharge Plan Home Transportation Arrangement Self vs friend Whiteboard Updated in Patient Room with Yes name and ext. # of Learning Disabilities Specialist Comment Encouraged patient to contact SW team if questions and desire to talk arises.
--- NOTE | 2024-05-16 17:19 | DI.RAD.S_ITS ---
PROCEDURE: XR CHEST FOR PICC 1V INDICATIONS: PICC placement COMPARISON: None. FINDINGS: PICC was placed by the intravenous therapy team from the left side. Fluoroscopic spot film demonstrates the tip of PICC projecting to the area of mid SVC. IMPRESSION: Tip of PICC projects to the area of mid SVC. Approved by: Josué Taylor M.D. on 05/16/2024 at 17:08
[2024-05-16] MEDS: HEPARIN 5,000 UNIT/ML VIAL 5000 UNIT SUBCUT (20:09)
[2024-05-16] MEDS: OXYCODONE IR 10 MG TABLET 15 MG PO (23:12)
[2024-05-17] VITALS: BP 144/103; PULSE 67; RESP 12; TEMP 37.2; O2SAT 98
[2024-05-17] MEDS: VANCOMYCIN 1,250 MG/250 ML PIGGYBACK 250 MG IV ×3 (00:37→17:53)
[2024-05-17] MEDS: PIPERACILLIN/TAZO 3.375 GM in SODIUM CHLORIDE 0.9% 100 ML IV (03:58)
[2024-05-17] MEDS: HYDROMORPHONE 2 MG INJ IV (04:46)
[2024-05-17 06:48] LABS: Add Manual Diff / Slide Review NO; Basophils Absolute Auto 100 /uL (0-100); Basophils Percent Auto 0.5 % (0-2); Eosinophils Absolute Auto 100 /uL (0-450); Eosinophils Percent Auto 0.7 % (2-4); Hematocrit 38.9 % (41-53); Hemoglobin 12.9 g/dL (13.5-17.5); Lymphocytes Absolute Auto 1000 /uL (1100-4500); Lymphocytes Percent Auto 8.7 % (25-40); Mean Corpuscular HGB Conc 33.2 % (30-36); Mean Corpuscular Hemoglobin 29.5 PG (26-34); Mean Corpuscular Volume 88.7 fL (80-100); Monocytes Absolute Auto 500 /uL (0-900); Monocytes Percent Auto 4.7 % (3-14); Neutrophils Absolute Auto 9700 /uL (1500-7000); Neutrophils Percent Auto 85.4 % (50-75); Platelet Count 286 X10^3/uL (150-400); Red Blood Cell Count 4.38 X10^6/uL (4.5-5.9); Red Cell Distribution Width 13.4 % (11.6-14.8); White Blood Cell Count 11.4 X10^3/uL (4.5-11.0)
[2024-05-17 07:02] LABS: BUN Creatinine Ratio 18.3 (6-22); Blood Urea Nitrogen 11 mg/dL (9-20); Calcium 8.8 mg/dL (8.4-10.2); Carbon Dioxide 28 mmol/L (22-32); Chloride 103 mmol/L (98-107); Estimated Glomerular Filt Rate > 60 mL/min (>60); Glucose 109 mg/dL (80-110); HEMOLYSIS < 15 (0-50); Potassium 3.6 mmol/L (3.4-5.1); Sodium 138 mmol/L (137-145)
[2024-05-17 08:04] VITALS: BP 143/95; PULSE 69; RESP 20; TEMP 36.6; O2SAT 98
[2024-05-17] MEDS: OXYCODONE IR 10 MG TABLET 15 MG PO (08:08)
[2024-05-17] MEDS: HEPARIN 5,000 UNIT/ML VIAL 5000 UNIT SUBCUT (08:09)
[2024-05-17] MEDS: GABAPENTIN 300 MG CAPSULE PO ×3 (08:09→20:22)
[2024-05-17] MEDS: METHADONE 10 MG TABLET 20 MG PO ×4 (08:09→20:23)
[2024-05-17] MEDS: DOCUSATE 100 MG CAPSULE PO (08:10)
[2024-05-17] MEDS: ACETAMINOPHEN 325 MG TABLET 650 MG PO (08:10)
--- NOTE | 2024-05-17 09:32 | PM.PNPO.1 ---
Subjective Subjective Interval history: Patient is postoperative day 1. Of a irrigation and debridement of the abscess to the right hand. Patient also had a repeat repair of his flexor tendon laceration to his middle finger. Patient is doing very well today. No complaints. Exam Vital Signs (past 8 hours): - 05/17/24 08:04 Temperature 97.9 F Pulse Rate 69 Respiratory Rate 20 Blood Pressure 143/95 H Pulse Oximetry 98 Oxygen Flow Rate 0 Oxygen Delivery Method Room Air Oxygen Flow Rate 0 Narrative Exam Narrative: Patient is in his dorsal blocking splint. Is able to demonstrate active flexion of the middle ring and small finger. Dressing is intact. Objective Labs 05/17/24 06:41 05/17/24 06:41 Labs: Laboratory Results - last 24 hr 05/17/24 06:41 WBC 11.4 H RBC 4.38 L Hgb 12.9 L Hct 38.9 L MCV 88.7 MCH 29.5 MCHC 33.2 RDW 13.4 Plt Count 286 Neut % (Auto) 85.4 H Lymph % (Auto) 8.7 L [place] % (Auto) 4.7 Eos % (Auto) 0.7 L Baso % (Auto) 0.5 Neut # (Auto) 9700 H Lymph # (Auto) 1000 L [place] # (Auto) 500 Eos # (Auto) 100 Baso # (Auto) 100 Sodium 138 Potassium 3.6 Chloride 103 Carbon Dioxide 28 BUN 11 Creatinine 0.60 L Estimated GFR > 60 BUN/Creatinine Ratio 18.3 Glucose 109 Calcium 8.8 PFSH Medical History (Updated 05/15/24 @ 15:09 by Regine Mckay PA-C) Current recreational drug use Amputation of finger, right Surgical History (Updated 05/15/24 @ 09:41 by Kimberlyn Fan RN) History of orthopedic surgery (04/22/24) Social History household members: none Smoking Status: Current every day smoker alcohol intake: current Assessment & Plan Post-op Postoperative Procedures: Procedures Operation Date: 05/16/24 09:00 Actual Procedure Side Surgeon p Irrigation and debridement wrist infection, repair of structures as indicated Right Katia Paz MD s Flexor/Extensor Tendon Repair Hand Right Katia Paz MD Postoperative day: 1 Postoperative plan: routine post-op care Postoperative plan narrative: Patient will have a wound check tomorrow. Possible return to the OR on Saturday depending on the status of the wound. Quality VTE Deep Vein Thrombosis/Pulmonary Embolism Present on Admission: No
--- NOTE | 2024-05-17 09:41 | P.PN_ITS ---
Subjective Subjective Interval history: 64 M admitted via orthopedic surgery, medicine consulted for opiate use and withdrawal. He is doing well today with methadone 20 mg QID. Oxycodone does not seem to help his acute pain as much, will try to switch to oral dilaudid instead. Exam Vital Signs (past 8 hours): - 05/17/24 08:04 Temperature 97.9 F Pulse Rate 69 Respiratory Rate 20 Blood Pressure 143/95 H Pulse Oximetry 98 Oxygen Flow Rate 0 Oxygen Delivery Method Room Air Oxygen Flow Rate 0 Narrative Exam Narrative: Gen: disheveled male, WDWN, no acute distress CV: RRR no m/r/g Pulm: CTA b/l Ext: No edema, R hand dressed, moves fingers well no numbness Objective Labs 05/17/24 06:41 05/17/24 06:41 Labs: Laboratory Results - last 24 hr 05/17/24 06:41 WBC 11.4 H RBC 4.38 L Hgb 12.9 L Hct 38.9 L MCV 88.7 MCH 29.5 MCHC 33.2 RDW 13.4 Plt Count 286 Neut % (Auto) 85.4 H Lymph % (Auto) 8.7 L [place] % (Auto) 4.7 Eos % (Auto) 0.7 L Baso % (Auto) 0.5 Neut # (Auto) 9700 H Lymph # (Auto) 1000 L [place] # (Auto) 500 Eos # (Auto) 100 Baso # (Auto) 100 Sodium 138 Potassium 3.6 Chloride 103 Carbon Dioxide 28 BUN 11 Creatinine 0.60 L Estimated GFR > 60 BUN/Creatinine Ratio 18.3 Glucose 109 Calcium 8.8 [facility] Medical History (Updated 05/15/24 @ 15:09 by Regine Mckay PA-C) Current recreational drug use Amputation of finger, right Surgical History (Updated 05/15/24 @ 09:41 by Kimberlyn Fan RN) History of orthopedic surgery (04/22/24) Social History household members: none Smoking Status: Current every day smoker alcohol intake: current Assessment & Plan Assessment & Plan narrative: 1. RUE abscess - management per orthopedic service, currently on zosyn and vancomycin, cultures pending - pain management as noted below - cultures growing staph aureus from the OR, changed antibiotics to ceftriaxone and vanco instead of zosyn and vanco. Can stop vanco if not MRSA. - possible return to OR on saturday per orthopedics depending on his wound. - mild leukocytosis continue to monitor CBC 2. Opiate dependence and withdrawal - After surgery mild hypertension, tachycardia, and anxiety likely due to withdrawal. started methadone 20 QID with adequate control and fairly mimimal withdrawal symptoms yesterday. Doing well today. - he likely has significant tolerance for opiates so may need higher dosing for pain control. He reports no change with oxycodone so will trial change to oral dilaudid which he states he has previously had better results with in the past. - narcan is ordered in case of overdosing. Code: Full DVT: HSQ I have utilized all available immediate resources to obtain, update, or review the patient's current medications. Dispo: patient admitted under inpatient status. Will discharge home when able. Medicine will continue to follow along. Time-Based Coding :: [TOTAL MINUTES] spent with patient and on the chart (including review of chart, obtaining history, exam, reviewing outside data, placing orders, documenting exam and treatment plan, and counseling patient) on [DATE]. Quality VTE Deep Vein Thrombosis/Pulmonary Embolism Present on Admission: No
[2024-05-17] MEDS: cefTRIAXone 1,000 MG in SODIUM CHLORIDE 0.9% 100 ML 200 MG IV (10:30)
--- NOTE | 2024-05-17 12:05 | CM.DPNOTE ---
Addendum entered by ALDA Zavaleta 05/17/24 14:39: per RN, has a wound vac. Per PT, rec home with assistance. WALLY Original Note: DCP Note [employer] OPENER reviewed EMR Pt POD1 I&D. has a PICC. PT/OT pending. per hospitalist in rounds/ortho surgeon note, ortho to recheck wound again Saturday, potential need for another I&D Saturday. Per hospitalist, do not anticipate IV abx at dc. hopeful for PO. consulted to assist with managing pt's Methadone/withdrawal concerns/pain management. P: Medical POC pending. SW team will follow clinical course closely, anticipate further assessment of need at bedside for KARIN treatment/recovery, pending PT/OT recs, final abx need, and if any WC needs at [place]. ALDA Zavaleta
--- NOTE | 2024-05-17 12:17 | PT.IIE ---
Current Diagnoses Cutaneous abscess of right hand (05/15/24) Surgery Performed Operation Date: 05/16/24 09:00 Actual Procedures p Irrigation and debridement wrist infection, repair of structures as indicated(Right) - Katia Paz MD s Flexor/Extensor Tendon Repair Hand(Right) - Katia Paz MD Surgical History (Last Updated 05/15/24 @ 09:41 by Kimberlyn Fan RN) History of orthopedic surgery (04/22/24) Medical History Amputation of finger, right Current recreational drug use Physical Therapy Inpatient Evaluation/Re-Eval M1 PT/OT-IP Prior Functional Status Start: 05/17/24 09:01 Freq: NEEDED Status: Active Protocol: Document 05/17/24 11:50 MB (Rec: 05/17/24 12:17 MB [id number]) Medical Review Prior Functional Status Medical History Reviewed Yes Communication Soft speech, occ difficult to understand and answers most questions Mobility and Gait I, lives in motor home, does not work, states he is detoxing from drugs Social History Household Members none Living Arrangements RV Number of Stairs To Enter/Railing? 2 steps to enter motor home Additional Social History Comment No equipment, motor home has BR, he does not provide any specific information when asked M2 PT-IP Current Condition Start: 05/17/24 09:01 Freq: NEEDED Status: Active Protocol: Document 05/17/24 11:50 MB (Rec: 05/17/24 12:17 MB [id number]) Physical Therapy Current Condition Current Condition Evaluation Date 05/17/24 Treatment Diagnosis Right wrist infection s/p tendon injuries, surgery, vac and splint donned M3 PT-IP Subjective Start: 05/17/24 09:01 Freq: NEEDED Status: Active Protocol: Document 05/17/24 11:50 MB (Rec: 05/17/24 12:17 MB [id number]) Subjective Physical Therapy Visit Type Type Initial Evaluation Visit Start Time 11:50 Visit Stop Time 12:00 Number of [employer] SALESPERSON Visits 0 Physical Therapy Visit Comments Patient Comments Pt agreeable to get up for lunch. Therapy Pain Assessment Pain When Pain Assessed At Rest Pain Present Pain Present Pain Reported Location Right Hand Intensity 5 Scale Used Numeric (0 - 10) M4 PT-IP Mobility and Gait Start: 05/17/24 09:01 Freq: NEEDED Status: Active Protocol: Document 05/17/24 11:50 MB (Rec: 05/17/24 12:17 MB [id number]) PT-Bed Mobility Assessment Supine to Sit Supine to Sit Independent Scooting Scooting to Edge of Bed Standby Assistance PT-Transfer Assessment Sit to and From Stand Sit to and from Stand Standby Assistance,1 Person Assistance,Use of Upper Extremities Equipment Transfer Assistive Device Gait Belt Transfers Transfer Destination Chair Transfer Technique Stepping Transfer Ability Level of Assist Contact Guard Assistance Comments Mobility Comments Pt is somewhat impulsive and agitated occ and does not wait for PT to move sheets and wound vac line before standing up Gait Assessment Gait Gait Assistance Required: Contact Guard Assist Distance (Feet) 20 Assistive Devices Assistive Device Gait Belt Gait Deviations General Gait Pattern Antalgic,Decreased Stride Length,Flexed Trunk Factors Limiting Gait Function Factors Limiting Gait Function Difficulty Following Directions,Pain,Poor Balance, Poor Safety Awareness Comments Gait Comments PT performs CGA at gait belt for mobility this afternoon PT-Balance Assessment Sitting Balance and Reactions Static Sitting Balance Ability Good Dynamic Sitting Balance Ability Good Standing Balance and Reactions Static Standing Balance Ability Fair Dynamic Standing Balance Ability Fair Device Used Gait belt M5 PT-IP Objective Assessments Start: 05/17/24 09:01 Freq: NEEDED Status: Active Protocol: Document 05/17/24 11:50 MB (Rec: 05/17/24 12:17 MB [id number]) Orientation Orientation/Cognition Level of Alertness Alert Orientation Name,Birthday,Month,Year,Place ,Situation Safety Awareness Decreased Safety Awareness Memory Description No Deficits Noted Gross Range of Motion Upper Extremity ROM Assessment Right Impaired Impairments Right hand in splint and wound vac donned Lower Extremity ROM Assessment Within Functional Limits Impairments Functionally observed only today Strength Comments Strength Comments Strength functionally observed only today d/t pt somewhat impulsive, moving before PT doffs covers and manages wound vac line, left up in chair with lunch, call monzon, chair alarm and BULK FILLER aware Coordination Assessment Assessment Coordination Comments Not tested but definitely impaired as pt cannot use his right hand to help set-up lunch and PT assits Sensation Assessment Comments Sensation Comments NT M6 PT-IP Treatment Start: 05/17/24 09:01 Freq: NEEDED Status: Active Protocol: Document 05/17/24 11:50 MB (Rec: 05/17/24 12:17 MB [id number]) Physical Therapy Treatment Education Education Provided Safety M7 PT-IP Assessment and Plan Start: 05/17/24 09:01 Freq: NEEDED Status: Active Protocol: Document 05/17/24 11:50 MB (Rec: 05/17/24 12:17 MB [id number]) PT Summary Assessment and Plan Potential Rehabilitation Potential Fair Status of Condition at Evaluation Evolving Summary Impairments Pain,ROM,Strength,Balance, Coordination,Sensation, Cognition,Bed Mobility, Transfers,Gait,Activity Tolerance Progress Towards Goals Slow Progress - Other Assessment Summary Pt is a 64 y/o male adm with right wrist infection after fall and tendon injury and surgery. Pt with splint and wound vac donned. Pt is mildly impulsive and agitated with PT today once he starts to move, not waiting for PT to fully doff cover and get wound vac line clear. He requires CGA with gait belt assistance for gait around bed to chair. Left with call monzon, chair alarm donned and BULK FILLER aware. Goals Transfer Goal Independent,Cane Gait Goal Independent,Cane Gait Distance 200 Other Goals Pt will ascend and descend 2 steps with left hand on rail to allow safe motor home entrance. Teach cane use in left hand if needed for balance vs I without AD. Days to Meet Goals 5 Frequency of Treatment Frequency Of Treatment Once a Day Other frequency x1 Treatment Plan Physical Therapy Treatment Plan Bed Mobility Training,Transfer Training,Gait Training, Therapeutic Exercise,Balance Retraining,Post Op Education, Discharge Planning,Hot or Cold Pack,Neuromuscular Re-ed, Coordination Retraining,Manual Therapy Precautions Other Precautions Right hand in splint, wound vac, order says WBAT but PT prefers to have pt not use hand in splint, if need AD, can try cane in left hand Weight Bearing Status Weight Bearing Status Weight Bear as Tolerated Recommendations To Nursing Amount of Assist Needed 1 Person Assist Discharge Recommendations PT Discharge Recommendations Home with Assistance Transportation Needs at Discharge Private Vehicle
[2024-05-17] MEDS: HYDROMORPHONE 2 MG TABLET 4 MG PO ×2 (12:32→20:22)
[2024-05-17] MEDS: VANCOMYCIN TROUGH 1 REQUEST MISC (16:56)
[2024-05-17 17:42] LABS: Vancomycin Trough 13.9 ug/mL (10-20)
[2024-05-17 19:00] VITALS: BP 135/88; PULSE 68; RESP 18; TEMP 37.3; O2SAT 98
[2024-05-18] MEDS: VANCOMYCIN 1,250 MG/250 ML PIGGYBACK 250 MG IV ×2 (01:23→08:41)
[2024-05-18 01:37] VITALS: TEMP 36.3
[2024-05-18] MEDS: HYDROMORPHONE 2 MG TABLET 4 MG PO ×3 (01:37→10:14)
--- NOTE | 2024-05-18 06:57 | PC.NURSE ---
Pt had a loose stool tonight, needed to take a shower to get clean up. Unable to collect a stool sample since stool was all over the linens. No drainage noted in the wound vac container. wound vac suction set-up at 75 per Operating room settings.
[2024-05-18 08:00] VITALS: BP 137/94; PULSE 80; RESP 20; TEMP 37; O2SAT 98
--- NOTE | 2024-05-18 08:05 | PM.PNPO.1 ---
Subjective Subjective Date Patient Seen: 05/18/24 Time Patient Seen: 08:06 Interval history: [age] ty[age]-old man left hand dominant status post right hand laceration traumatic median nerve flexor tendon lacerations with a post injury infection and rerupture flexor tendons middle finger.. Status post I and D and rerepair FDS and FDP to middle finger on 05/16/2024 and closure. Wound growing staph aureus. He has been switched to ceftriaxone and vancomycin. He had an incisional wound VAC placed. He was initially on vanc and Zosyn this has been talar to ceftriaxone and vancomycin. He was a past history of drug use fentanyl. No injection drug use. His medications have been adjusted to 20 of methadone q.i.d. and immediate acting Dilaudid which have helped improve his pain control for the last day. Appreciate hospitalist Medicine help with this. The patient was seen in the room. At 1st he was quiet and cooperative his dressing is changed his incisional wound VAC is removed. When discussing recommendations for treatment for his deep infection including typically recommended IV antibiotics for 2-4 weeks and possible consideration of a long-term rehab for this the patient became agitated mentioned that his motor home needed to be moved and he was working on it. He mentioned that the home situation is not good and then he could potentially go to a skilled facility but then became more agitated and angry and stated that he was just going to leave today. Discussed with the patient that this not recommended given his infection and we want to have the best outcome for his hand and reduce the risk of tendon rupture and dysfunction and worsening infection. I discussed his cultures have not finalized and depending on the antibiotic eventually needed in dosing regimen potentially there may be options for home infusions versus long-term or potentially even a oral option but I have encouraged him to stay in the hospital today and continue to receive IV antibiotics until the cultures are finalized and we can make these final recommendations for him. I also discussed with social work, case management and asked the patient to please allow them to have a chance to discuss with him today on options they may be able to help alleviate the stress he feels about his motor home situation and there may be some ways that we can help so that he is able to Feel he can stay and continue his treatment in the hospital. Exam Vital Signs (past 8 hours): - 05/18/24 01:37 Temperature 97.4 F L Oxygen Delivery Method Room Air Oxygen Flow Rate 0 Narrative Exam Narrative: patient was lying in bed alert and oriented no acute distress at 1st- And cooperative with the exam, but becomes agitated when discussing duration of treatment. wrist is examined it was removed from the splint. The incisional VAC is removed. Sutures are clean dry and intact. There is some induration consistent with a hematoma around the incision but no erythema no ascending erythema. Forearm is soft. Fingers are well perfused. There is stable appearance of previous index finger amputation. He was able to demonstrate flexion and extension of the middle ring and small finger. Within the balance of the dorsal blocking splint. Unchanged decrease instability median nerve distribution consistent with the known previous median nerve laceration and repair. New Xeroform gauze and a Kerlix wrap were placed the patient was placed back in his dorsal blocking splint. Objective Labs 05/17/24 06:41 05/17/24 06:41 Labs: Laboratory Results - last 24 hr 05/17/24 16:52 Vancomycin Trough 13.9 PFSH Medical History (Updated 05/15/24 @ 15:09 by Regine Mckay PA-C) Current recreational drug use Amputation of finger, right Surgical History (Updated 05/15/24 @ 09:41 by Kimberlyn Fan RN) History of orthopedic surgery (04/22/24) Social History household members: none Smoking Status: Current every day smoker alcohol intake: current Assessment & Plan Post-op Postoperative Procedures: Procedures Operation Date: 05/16/24 09:00 Actual Procedure Side Surgeon p Irrigation and debridement wrist infection, repair of structures as indicated Right Katia Paz MD s Flexor/Extensor Tendon Repair Hand Right Katia Paz MD Postoperative day: 2 Postoperative status narrative: Repeat flexor tendon repair of the middle finger tendons appears to be holding he does have active flexion fair. And the I and D incision site is healing. There was no purulent drainage. There is less erythema than preoperative it appears to be doing well and progressing with the IV antibiotics. Postoperative plan narrative: 1. Plan would be modified Ford protocol for flexor tendon repair and use of dorsal blocking splint. 2. For the infection current cultures are growing staph aureus. These have not finalized yet. He continues on ceftriaxone and vancomycin. Ideally when finalized he would be tailored to the appropriate antibiotic for the MSSA or MRSA depending on final culture outcome. 3. The patient does express that he was now not interested in placement to receive extended IV antibiotic treatment. I discussed our concern would be risk of recurrent infection and prolonged dysfunction or worsening of his wrist. My recommendation would be to stay in the hospital until cultures are finalized and then discharge to appropriate setting with the appropriate IV antibiotic however if the patient is unwilling or able to receive this then I have recommended staying until cultures are finalized for the best recommendation for an oral antibiotic realizing this may increase the risk of failure but would be the best option available the patient would be willing to receive. I have asked the patient to continue to stay with us for that today and give our public health social worker with a chance to help him with the social stressors he is feeling from situation with a motor home outside the hospital. 4. If he does decide to leave against medical advice later today, recommendation would be sent oral prescription of doxycycline 100 mg b.i.d. for a 28 day course and would have him follow up in [facility] within a week. To reestablish with hand therapy. And for wound check. Time Spent With Patient Time with patient: less than 15 minutes Quality VTE Deep Vein Thrombosis/Pulmonary Embolism Present on Admission: No
[2024-05-18] MEDS: ACETAMINOPHEN 325 MG TABLET 650 MG PO (08:40)
[2024-05-18] MEDS: GABAPENTIN 300 MG CAPSULE PO (08:40)
[2024-05-18] MEDS: METHADONE 10 MG TABLET 20 MG PO (08:40)
[2024-05-18] MEDS: HEPARIN 5,000 UNIT/ML VIAL 5000 UNIT SUBCUT (08:41)
[2024-05-18 09:08] LABS: Add Manual Diff / Slide Review NO; Basophils Absolute Auto 100 /uL (0-100); Basophils Percent Auto 0.6 % (0-2); Eosinophils Absolute Auto 100 /uL (0-450); Eosinophils Percent Auto 0.7 % (2-4); Hematocrit 38.1 % (41-53); Hemoglobin 12.7 g/dL (13.5-17.5); Lymphocytes Absolute Auto 1200 /uL (1100-4500); Lymphocytes Percent Auto 13.2 % (25-40); Mean Corpuscular HGB Conc 33.3 % (30-36); Mean Corpuscular Hemoglobin 29.5 PG (26-34); Mean Corpuscular Volume 88.6 fL (80-100); Monocytes Absolute Auto 400 /uL (0-900); Neutrophils Absolute Auto 7100 /uL (1500-7000); Neutrophils Percent Auto 80.5 % (50-75); Platelet Count 260 X10^3/uL (150-400); Red Cell Distribution Width 13.4 % (11.6-14.8); White Blood Cell Count 8.9 X10^3/uL (4.5-11.0)
[2024-05-18 09:17] LABS: Alanine Aminotransferase 16 IU/L (<50); Albumin Globulin Ratio 1.1 (1.0-2.8); Alkaline Phosphatase 74 U/L (38-126); Aspartate Aminotransferase 24 IU/L (17-59); BUN Creatinine Ratio 21.3 (6-22); Bilirubin Total 0.5 mg/dL (0.2-1.3); Blood Urea Nitrogen 13 mg/dL (9-20); Calcium 9.1 mg/dL (8.4-10.2); Carbon Dioxide 26 mmol/L (22-32); Chloride 105 mmol/L (98-107); Estimated Glomerular Filt Rate > 60 mL/min (>60); Globulin 3.6 g/dL (1.7-4.1); Glucose 112 mg/dL (80-110); HEMOLYSIS < 15 (0-50); Potassium 3.5 mmol/L (3.4-5.1); Sodium 140 mmol/L (137-145); Total Protein 7.6 g/dL (6.3-8.2)
--- NOTE | 2024-05-18 10:09 | PT-IP ANOTE ---
Pt discussed in rounds and pt leaving AMA. Will d/c PT.
--- NOTE | 2024-05-18 10:10 | OT.IPNOTE ---
D/C OT order due to pt deciding to discharge AMA.
[2024-05-18] MEDS: cefTRIAXone 1,000 MG in SODIUM CHLORIDE 0.9% 100 ML 200 MG IV (10:12)
--- NOTE | 2024-05-18 11:11 | CM.DPC ---
Addendum entered by ALDA Montenegro 05/18/24 13:42: ADD: Call from ED staff stating pt is now downstairs at 1245 waiting for his ride that arrived at 1230 but pt was not there where [employer] had planned to strip picker patient since he refused to wait with staff and go down together with staff for transport. SHUN confirmed with [employer] that it was [employer] transport taxi that was scheduled for transport today. SW called [employer] and confirmed they do not have another winch driver for transport today since pt missed his scheduled time. SHUN provided ED Lyly the number for patient to call [employer] himself and figure out a ride home since he chose not to wait for 1230 and missed his scheduled ride. BF Original Note: DCP AMA Cont: Per Trixie PUENTES, still waiting cultures to determine final IV Abx needed at d/c and likely will need for 2 weeks and pt discussing leaving AMA due to stress from needing to move his RV to a different location. Ortho attempted to encourage patient to remain in the hospital for ongoing medical care needs and requesting assist from SW to determine if SNF placement at option at d/c if pt decides to remain admitted for medical treatment. SHUN reached out to the following SNFs to determine if they accept pt's [employer] insurance: [facility]- not contracted [facility]- accept [facility]- left [facility] [facility] [facility] Barriers to SNF placement are pt's current meth and fentanyl use and difficult discharge plan back to RV on friend's property. SHUN confirmed that [facility] also is NOT contracted with [employer]. SHUN met bedside with pt and explained role and pt easily agitated and confirms he was agreeable to remain admitted for his dose of IV-Abx this morning which is currently infusing but plans to d/c AMA today and ideally around 1200. Pt states his RV is on a friend's property who moved into L[facility] and now her property was handed over to the State and it has been condemned. Pt states he is not willing to remain admitted or to go to SNF for ongoing medical care and will leave AMA today and declines any further resources or needs beyond getting transport back to his RV in [facility]. Pt confirms the address is [address] [facility]. Called [employer] and confirmed that pt has [employer] benefits and they were able to schedule [employer] taxi for 1230 for pt back to his RV today. Updated [employer] and RN and they will make sure to get pt to the ED entrance for Medicaid taxi by 1230. ALDA Montenegro
--- NOTE | 2024-05-18 12:15 | PC.NURSE ---
Day shift: Patient stated that he needed to leave today because his motor home is on a friend's property and the property is being condemned. This RN and MD Paz talked to patient about staying in the hospital for more IV antibiotics. Wound culture came back positive for MRSA, let MD Pedroza and MD Paz know. MD Pedroza sent PO doxycyline prescription to [facility] as patient is adamant that he is leaving today. After AM IV antibiotics, this RN pulled PICC and PIV. Told patient about antibiotic prescription and that Medicaid taxi coming at 12:30. At 12:05, patient stated he didn't want to wait any longer. He got dressed, signed AMA paperwork, and walked out. He stated to [facility] that he would wait downstairs for the taxi. All belongings taken by patient.
== END 2024-05-18 12:05 | disposition left against medical advice (07) | DRG 711 ==
PROVIDERS: Internal Medicine; Physician Assistant; Admitting Provider Orthopaedic Surgery Foot and Ankle Surgery; Referring Provider Orthopaedic Surgery Foot and Ankle Surgery; Visit Provider Orthopaedic Surgery Foot and Ankle Surgery
PROC: 0LB70ZZ Excision of Right Hand Tendon, Open Approach (ICD-10-PCS; principal; 2024-05-16 09:00)
PROC: 0LB70ZZ Excision of Right Hand Tendon, Open Approach (ICD-10-PCS; 2024-05-16 09:00)
DX: T81.42XA Infection following a procedure, deep incisional surgical site, initial encounter (principal); M65.031 Abscess of tendon sheath, right forearm; S56.221A Laceration of other flexor muscle, fascia and tendon at forearm level, right arm, initial encounter; F11.23 Opioid dependence with withdrawal; F17.200 Nicotine dependence, unspecified, uncomplicated; B95.62 Methicillin resistant Staphylococcus aureus infection as the cause of diseases classified elsewhere; W25.XXXA Contact with sharp glass, initial encounter; Z53.29 Procedure and treatment not carried out because of patient's decision for other reasons
CPT/HCPCS: 36415; 36569; 36592; 80048; 80053; 80202; 82565; 85025; 85651; 86140; 87070; 87075; 87077; 87147; 87186; 87205; 87801; 97161; J0696; J1171; J1642; J1644; J2405; J2543; J2704; J3010

== ENCOUNTER 2024-08-25 12:38 | Inpatient (IN) | payer OTHER, SELFPAY ==
[2024-08-25 13:12] VITALS: BP 149/72; PULSE 89; RESP 18; TEMP 36.9; O2SAT 98; BMI 21.1
--- NOTE | 2024-08-25 13:49 | DI.CT.S_ITS ---
PROCEDURE: CT UE RT W CON INDICATIONS: RIGHT ?wrist abscess TECHNIQUE: After the administration of intravenous contrast, 3 mm axial sections acquired of the right forearm and right wrist, with coronal and sagittal reformats. COMPARISON: None. FINDINGS: Image quality: Excellent. Bones: Alignment of included right upper extremity is anatomic. No acute fracture or dislocation. No cortical erosion or abnormal periosteal reaction. Osteoarthritic changes are noted in elbow and wrist joints. No suspicious intraosseous lesions. Soft tissues: There is no significant elbow joint effusion or calcified intra- articular loose bodies. There is significant soft T2 knee is subcutaneous fat stranding and skin thickening involving distal forearm particularly in the volar aspect. Ill- defined heterogeneously enhancing hypodense area involving muscle/soft tissue in volar aspect of distal forearm measures up to 1.9 x 1.4 x 2.1 cm in size series 7, image 25 and series 3, image 196 concerning for abscess collection. No other peripherally enhancing fluid collection is seen. No enhancing soft tissue mass is noted. No full-thickness extensor or flexor tendon rupture. IMPRESSION: 1. Extensive cellulitis in distal forearm with suggestion of soft tissue/intramuscular abscess collection in volar aspect of distal forearm measures up to 1.9 x 1.4 x 2.1 cm in size. 2. 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 No fracture or dislocation. No CT evidence of osteomyelitis. Dictated by: Torrey Montoya M.D. on 08/25/2024 at 15:45 Approved by: Torrey Montoya M.D. on 08/25/2024 at 15:52
--- NOTE | 2024-08-25 13:58 | ED.SKABFB ---
HPI - Skin/Abscess/Foreign Bdy <Allen Villalobos PA-C - Last Filed: 08/25/24 19:00> General Chief complaint: Skin/Abscess/Foreign Body Stated complaint: infection right hand Time Seen by Provider: 08/25/24 12:51 Source: patient Mode of arrival: Ambulatory Limitations: no limitations History of Present Illness HPI narrative: 64-year-old male with past medical history opiate abuse presents to the ED with worsening swelling, pain, warmth of the volar aspect of the right wrist. Patient had a surgical intervention on 04/22/2024 to his right wrist due to an injury. Patient subsequently developed an abscess at the same site for which he had a 2nd surgical intervention to drain the abscess. Wound cultures confirmed MRSA. Patient was offered to go to a care facility to continue getting IV antibiotics, however patient deferred that option and opted instead to go home on p.o. antibiotics. Patient was on doxycycline for several weeks. Patient states that his symptoms improved and he felt better. However, last week patient started experiencing pain, swelling, warmth at the site of the injury. No fever, chills, chest pain, shortness of breath, nausea, vomiting, numbness, tingling, weakness, lightheadedness, dizziness, syncope. Related Data Home Medications ?Medication ?Instructions ?Recorded ?Confirmed hydromorphone 4 mg tablet 4 mg PO Q4H PRN pain 05/15/24 05/15/24 Previous Rx's ?Medication ?Instructions ?Recorded gabapentin 300 mg capsule 300 mg PO TID #30 caps 04/22/24 ondansetron 4 mg disintegrating 4 mg PO Q8HR PRN nausea and 04/22/24 tablet vomiting #5 tabs Allergies Allergy/AdvReac Type Severity Reaction Status Date / Time No Known Drug Allergies Allergy Verified 08/25/24 13:12 Review of Systems <Allen Villalobos PA-C - Last Filed: 08/25/24 19:00> Constitutional Constitutional: Denies chills, Denies fatigue, Denies fever(s), Denies frequent falls, Denies lethargy and Denies weakness Eyes Eyes: Denies change in vision, Denies eye discharge, Denies irritation and Denies loss of vision ENT Ears, Nose, Mouth, and Throat: Denies change in voice, Denies dizziness, Denies neck pain, Denies sore throat and Denies throat swelling Cardiovascular Cardiovascular: Denies chest pain, Denies irregular heart rhythm, Denies lightheadedness, Denies palpitations, Denies dyspnea, Denies dyspnea on exertion and Denies orthopnea Respiratory Respiratory: Denies cough, Denies dyspnea, Denies dyspnea on exertion and Denies wheezing Gastrointestinal Gastrointestinal: Denies abdominal pain, Denies change in bowel habits, Denies diarrhea, Denies nausea and Denies vomiting Musculoskeletal Musculoskeletal: Denies neck pain and Denies numbness Integumentary/Breasts Skin/Breast: Denies pruritus, Reports erythema, Denies rash, Reports skin swelling and Reports wounds Neurologic Neurologic: Denies behavioral changes, Denies confusion, Denies dizziness, Denies frequent falls, Denies loss of vision, Denies numbness and Denies weakness Psychiatric Psychiatric: Denies anxiety, Denies behavioral changes, Denies confusion, Denies depression, Denies homicidal ideation and Denies suicidal ideation Endocrine Endocrine: Denies fatigue, Denies flushing and Denies palpitations Hematologic/Lymphatic Hematologic/Lymphatic: Denies easy bruising Allergic/Immunologic Allergic/Immunologic: Denies urticaria, Denies throat swelling and Denies wheezing Patient History <Allen Villalobos PA-C - Last Filed: 08/25/24 19:00> Medical History Current recreational drug use Amputation of finger, right Surgical History History of orthopedic surgery (04/22/24) Social History household members: none Smoking Status: Current every day smoker alcohol intake: current Smoking Status: Current every day smoker tobacco type: cigarettes and vaping alcohol intake frequency: holidays/special occasions only Exam <Allen Villalobos PA-C - Last Filed: 08/25/24 19:00> Narrative Exam Narrative: Const General:?cooperative, healthy appearing and comfortable [facility] Head:?normal to inspection Ears:?hearing grossly normal bilaterally Nose:?external nose normal Face and sinus:?normal facial exam and sinuses nontender Mouth:?oral mucosae normal Throat:?posterior oropharynx normal Eyes General:?appearance normal, both eyes and all related structures Neck Neck:?normal visual inspection and no lymphadenopathy noted Resp Effort & Inspection:?normal respiratory effort Auscultation:?clear to auscultation bilaterally Cardio Rate:?regular rate Rhythm:?regular rhythm Musculoskeletal/integumentary Right volar wrist at the site of the original injury/abscess is erythematous, warm, fluctuant. Suspicious for an abscess. Neurovascularly intact. Neuro General:?patient alert, patient awake and patient oriented x3 Initial Vital Signs Initial Vital Signs: Vital Signs Temperature 98.4 F 08/25/24 13:12 Pulse Rate 89 08/25/24 13:12 Respiratory Rate 18 08/25/24 13:12 Blood Pressure 149/72 H 08/25/24 13:12 Pulse Oximetry 98 08/25/24 13:12 Oxygen Delivery Method Room Air 08/25/24 13:12 <Pelon Valle MD - Last Filed: 08/25/24 22:30> Initial Vital Signs Initial Vital Signs: Vital Signs Temperature 98.4 F 08/25/24 13:12 Pulse Rate 89 08/25/24 13:12 Respiratory Rate 18 08/25/24 13:12 Blood Pressure 149/72 H 08/25/24 13:12 Pulse Oximetry 98 08/25/24 13:12 Oxygen Delivery Method Room Air 08/25/24 13:12 Course <Allen Villalobos PA-C - Last Filed: 08/25/24 19:00> Orders Ordered: ED Orders 08/25/24 13:49 CT UE RT w con Stat 08/25/24 14:05 CBC Auto Diff [Complete Blood Count AUTO DIFF] Stat CMP [Comprehensive Metabolic Panel] Stat CRP [C-Reactive Protein Quant] Stat ESR [Erythrocyte Sedimentation Rate] Stat Lactate (Lactic Acid) Stat 08/25/24 14:12 Procalcitonin Stat 08/25/24 14:22 Blood Culture Stat 08/26/24 16:21 MR wrist RT wo/w con Stat Methadone HCl (Methadone 10 Mg Tablet) 20 mg PO QID DANNA Last Admin: 08/25/24 18:06 Dose: 20 mg Documented By: EBER Discontinued Medications Vancomycin HCl (Vancomycin) 1,000 mg in 200 mls @ 200 mls/hr IV NOW ONE Stop: 08/25/24 17:23 Last Infusion: 08/25/24 17:45 Dose: Infused Documented By: Admin: 08/25/24 16:36 Dose: 200 mls/hr Documented By: EBER Ceftriaxone Sodium 2,000 mg/ (Sodium Chloride) 100 mls @ 200 mls/hr IV NOW ONE Stop: 08/25/24 17:37 Last Infusion: 08/25/24 18:40 Dose: Infused Documented By: Admin: 08/25/24 18:06 Dose: 200 mls/hr Documented By: EBER Vital Signs Vital signs: Vital Signs - 8 hr 08/25/24 13:12 Temperature 98.4 F Pulse Rate 89 Respiratory Rate 18 Blood Pressure 149/72 H Pulse Oximetry 98 Oxygen Delivery Method Room Air <Pelon Valle MD - Last Filed: 08/25/24 22:30> Orders Ordered: ED Orders 08/25/24 13:49 CT UE RT w con Stat 08/25/24 14:05 CBC Auto Diff [Complete Blood Count AUTO DIFF] Stat CMP [Comprehensive Metabolic Panel] Stat CRP [C-Reactive Protein Quant] Stat ESR [Erythrocyte Sedimentation Rate] Stat Lactate (Lactic Acid) Stat 08/25/24 14:12 Procalcitonin Stat 08/25/24 14:22 Blood Culture Stat 08/26/24 16:21 MR wrist RT wo/w con Stat Methadone HCl (Methadone 10 Mg Tablet) 20 mg PO QID DANNA Last Admin: 08/25/24 18:06 Dose: 20 mg Documented By: EBER Discontinued Medications Vancomycin HCl (Vancomycin) 1,000 mg in 200 mls @ 200 mls/hr IV NOW ONE Stop: 08/25/24 17:23 Last Infusion: 08/25/24 17:45 Dose: Infused Documented By: Admin: 08/25/24 16:36 Dose: 200 mls/hr Documented By: EBER Ceftriaxone Sodium 2,000 mg/ (Sodium Chloride) 100 mls @ 200 mls/hr IV NOW ONE Stop: 08/25/24 17:37 Last Infusion: 08/25/24 18:40 Dose: Infused Documented By: Admin: 08/25/24 18:06 Dose: 200 mls/hr Documented By: EBER Vital Signs Vital signs: Vital Signs - 8 hr 08/25/24 13:12 Temperature 98.4 F Pulse Rate 89 Respiratory Rate 18 Blood Pressure 149/72 H Pulse Oximetry 98 Oxygen Delivery Method Room Air MDM - Skin/Abscess/Foreign Bdy <Allen Villalobos PA-C - Last Filed: 08/25/24 19:00> Lab Data 08/25/24 14:05 08/25/24 14:05 Labs: Lab Results 08/25/24 08/25/24 Range/Units 14:05 14:12 WBC 7.4 (4.5-11.0) X10^3/uL RBC 4.36 L (4.5-5.9) X10^6/uL Hgb 13.3 L (13.5-17.5) g/dL Hct 38.6 L (41-53) % MCV 88.5 (80-100) fL MCH 30.5 (26-34) PG MCHC 34.5 (30-36) % RDW 13.6 (11.6-14.8) % Plt Count 192 (150-400) X10^3/uL Neut % (Auto) 69.8 (50-75) % Lymph % (Auto) 18.4 L (25-40) % [place] % (Auto) 6.3 (3-14) % Eos % (Auto) 5.0 H (2-4) % Baso % (Auto) 0.5 (0-2) % Neut # (Auto) 5100 (3062-6679) /uL Lymph # (Auto) 1400 (5190-0879) /uL [place] # (Auto) 500 (0-900) /uL Eos # (Auto) 400 (0-450) /uL Baso # (Auto) 0 (0-100) /uL ESR 10 (0-15) MM/HR Sodium 139 (137-145) mmol/L Potassium 3.9 (3.4-5.1) mmol/L Chloride 100 (98-107) mmol/L Carbon Dioxide 32 (22-32) mmol/L BUN 20 (9-20) mg/dL Creatinine 0.72 (0.66-1.25) mg/dL Estimated GFR > 60 (>60) mL/min BUN/Creatinine Ratio 27.8 H (6-22) Glucose 104 H (70-99) mg/dL Lactate 1.2 (0.7-2.1) mmol/L Calcium 9.0 (8.4-10.2) mg/dL Total Bilirubin 0.4 (0.2-1.3) mg/dL AST 33 (17-59) IU/L ALT 22 (<50) IU/L Alkaline Phosphatase 75 (38-126) U/L C-Reactive Protein < 0.5 (<1.0) mg/dL Total Protein 7.5 (6.3-8.2) g/dL Albumin 4.4 (3.5-5.0) g/dL Globulin 3.1 (1.7-4.1) g/dL Albumin/Globulin Ratio 1.4 (1.0-2.8) Procalcitonin 0.048 (<0.5) ng/mL MDM Narrative Medical decision making narrative: 64-year-old male with past medical history opiate abuse presents to the ED with worsening swelling, pain, warmth of the volar aspect of the right wrist. Physical exam is concerning for recrudescence of the abscess. Will obtain labs, blood cultures, CT upper extremity. Will reassess. Labs within normal limits. White count is 7.4. ESR 10, CRP less than 0.5, procalcitonin 0.048. CT scan shows extensive cellulitis in distal forearm with suggestion of soft tissue/intramuscular abscess collection in volar aspect of distal forearm measuring up to 1.9 x 1.4 x 2.1 cm in size. 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 No fracture or dislocation. No CT evidence of osteomyelitis. Patient's surgeon Dr. Jama was consulted. She recommends patient be started on IV antibiotics, admitted to medicine and that she will do a surgical washout tomorrow. NPO after midnight. Patient has been started on IV vancomycin. Dr. Pedroza hospitalist was consulted. He recommends patient be transferred to a facility with infectious disease consultant intern. Dr. Craven from [facility] infectious diseases has been paged for consult. Dr. Birmingham has also started patient on methadone to manage withdrawals. Patient also started on Rocephin. Patient has been signed out to Dr. Valle at this time. Medical records reviewed: Yes <Pelon Valle MD - Last Filed: 08/25/24 22:30> Lab Data Labs: Lab Results 08/25/24 08/25/24 Range/Units 14:05 14:12 WBC 7.4 (4.5-11.0) X10^3/uL RBC 4.36 L (4.5-5.9) X10^6/uL Hgb 13.3 L (13.5-17.5) g/dL Hct 38.6 L (41-53) % MCV 88.5 (80-100) fL MCH 30.5 (26-34) PG MCHC 34.5 (30-36) % RDW 13.6 (11.6-14.8) % Plt Count 192 (150-400) X10^3/uL Neut % (Auto) 69.8 (50-75) % Lymph % (Auto) 18.4 L (25-40) % [place] % (Auto) 6.3 (3-14) % Eos % (Auto) 5.0 H (2-4) % Baso % (Auto) 0.5 (0-2) % Neut # (Auto) 5100 (1582-7367) /uL Lymph # (Auto) 1400 (1208-1563) /uL [place] # (Auto) 500 (0-900) /uL Eos # (Auto) 400 (0-450) /uL Baso # (Auto) 0 (0-100) /uL ESR 10 (0-15) MM/HR Sodium 139 (137-145) mmol/L Potassium 3.9 (3.4-5.1) mmol/L Chloride 100 (98-107) mmol/L Carbon Dioxide 32 (22-32) mmol/L BUN 20 (9-20) mg/dL Creatinine 0.72 (0.66-1.25) mg/dL Estimated GFR > 60 (>60) mL/min BUN/Creatinine Ratio 27.8 H (6-22) Glucose 104 H (70-99) mg/dL Lactate 1.2 (0.7-2.1) mmol/L Calcium 9.0 (8.4-10.2) mg/dL Total Bilirubin 0.4 (0.2-1.3) mg/dL AST 33 (17-59) IU/L ALT 22 (<50) IU/L Alkaline Phosphatase 75 (38-126) U/L C-Reactive Protein < 0.5 (<1.0) mg/dL Total Protein 7.5 (6.3-8.2) g/dL Albumin 4.4 (3.5-5.0) g/dL Globulin 3.1 (1.7-4.1) g/dL Albumin/Globulin Ratio 1.4 (1.0-2.8) Procalcitonin 0.048 (<0.5) ng/mL MDM Narrative Medical decision making narrative: 64-year-old male with past medical history opiate abuse presents to the ED with worsening swelling, pain, warmth of the volar aspect of the right wrist. Physical exam is concerning for recrudescence of the abscess. Will obtain labs, blood cultures, CT upper extremity. Will reassess. Labs within normal limits. White count is 7.4. ESR 10, CRP less than 0.5, procalcitonin 0.048. CT scan shows extensive cellulitis in distal forearm with suggestion of soft tissue/intramuscular abscess collection in volar aspect of distal forearm measuring up to 1.9 x 1.4 x 2.1 cm in size. 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 No fracture or dislocation. No CT evidence of osteomyelitis. Patient's surgeon Dr. Jama was consulted. She recommends patient be started on IV antibiotics, admitted to medicine and that she will do a surgical washout tomorrow. NPO after midnight. Patient has been started on IV vancomycin. Dr. Pedroza hospitalist was consulted. He recommends patient be transferred to a facility with infectious disease consultant intern. Dr. Craven from [facility] infectious diseases has been paged for consult. Dr. Birmingham has also started patient on methadone to manage withdrawals. Patient also started on Rocephin. Patient has been signed out to Dr. Valle at this time. Medical records reviewed: Yes 08/25/24, Melissa, Leonard. 64-year-old male with history of fentanyl abuse, had right wrist infection April 2024 after repair of tendon injury by Dr. Jama, one month later had developed abscess which was washed out, on subsequent oral antibiotics for about 4 weeks, you recalls doxycycline was 1 of the antibiotics and can not recall the name of the other antibiotic, symptoms seemed to improve. Now having increased right wrist pain and swelling, white blood cell count 7000, ESR 10, CRP less than 0.5, procalcitonin 0.048. CT extremity done tonight shows presence of abscess 1.9 x 1.4 x 2[address] Jama was willing to admit here and requested admission to hospitalist service. Dr. Pedroza hospitalist was consulted, felt that patient needs ID consultation. Dr. Craven infectious diseases at [facility] has been paged for consultation, awaiting call back. Assumed care. Records review. Prior microbiology report 05/16/2024, wound culture. Grew methicillin-resistant Staph aureus. Sensitive to vancomycin, daptomycin, doxycycline, gentamicin, linezolid, moxifloxacin, rifampin, tetracycline, trimethoprim sulfa. Resistant to erythromycin, ciprofloxacin, oxacillin. Intermediate to levofloxacin. Case discussed with infectious diseases [facility] Dr Craven, who feels patient can be managed here, he can consult by phone if needed. Will discuss case with ortho surgery on-call. [id number], case discussed with orthopedics on-call Dr. Walter, who will contact Dr. Jama herself, to coordinate consultation services. Await callback. Case discussed with orthopedics Dr. Walter who contacted Dr. Jama, if the patient was refused for transfer then Dr. Jama was planning to perform the I&D/washout in the morning, assuming the patient was admitted to hospitalist service here. Paged the night hospitalist, awaiting callback. [id number], case discussed with hospitalist Dr. Anthony who accepts patient for admission. I text communicated with Dr. Walter to confirm admit here, who will relay disposition to Dr. Jama that the patient was admitted here and not at [facility], as the plan was for Dr. Jama was to do the I&D/washout procedure here tomorrow. Discharge Plan Departure Patient Disposition: Admitted as Observation Clinical Impression: Abscess of skin of right wrist Admit Date/Time: 08/25/24 21:54 Admit Provider: Klever Tejada
[2024-08-25 14:16] LABS: Add Manual Diff / Slide Review NO; Basophils Absolute Auto 0 /uL (0-100); Basophils Percent Auto 0.5 % (0-2); Eosinophils Absolute Auto 400 /uL (0-450); Hematocrit 38.6 % (41-53); Hemoglobin 13.3 g/dL (13.5-17.5); Lymphocytes Absolute Auto 1400 /uL (1100-4500); Lymphocytes Percent Auto 18.4 % (25-40); Mean Corpuscular HGB Conc 34.5 % (30-36); Mean Corpuscular Hemoglobin 30.5 PG (26-34); Mean Corpuscular Volume 88.5 fL (80-100); Monocytes Absolute Auto 500 /uL (0-900); Monocytes Percent Auto 6.3 % (3-14); Neutrophils Absolute Auto 5100 /uL (1500-7000); Neutrophils Percent Auto 69.8 % (50-75); Platelet Count 192 X10^3/uL (150-400); Red Blood Cell Count 4.36 X10^6/uL (4.5-5.9); Red Cell Distribution Width 13.6 % (11.6-14.8); White Blood Cell Count 7.4 X10^3/uL (4.5-11.0)
[2024-08-25 14:27] LABS: Lactate (Lactic Acid) 1.2 mmol/L (0.7-2.1)
[2024-08-25 14:31] LABS: Alanine Aminotransferase 22 IU/L (<50); Albumin 4.4 g/dL (3.5-5.0); Albumin Globulin Ratio 1.4 (1.0-2.8); Alkaline Phosphatase 75 U/L (38-126); Aspartate Aminotransferase 33 IU/L (17-59); BUN Creatinine Ratio 27.8 (6-22); Bilirubin Total 0.4 mg/dL (0.2-1.3); Blood Urea Nitrogen 20 mg/dL (9-20); C-Reactive Protein Quant < 0.5 mg/dL (<1.0); Carbon Dioxide 32 mmol/L (22-32); Chloride 100 mmol/L (98-107); Estimated Glomerular Filt Rate > 60 mL/min (>60); Globulin 3.1 g/dL (1.7-4.1); Glucose 104 mg/dL (70-99); HEMOLYSIS < 15 (0-50); Potassium 3.9 mmol/L (3.4-5.1); Sodium 139 mmol/L (137-145); Total Protein 7.5 g/dL (6.3-8.2)
[2024-08-25 14:34] LABS: Erythrocyte Sedimentation Rate 10 MM/HR (0-15)
[2024-08-25 14:45] LABS: Procalcitonin 0.048 ng/mL (<0.5)
[2024-08-25] MEDS: VANCOMYCIN 1,000 MG/200 ML PIGGYBACK 200 MG IV (16:36)
--- NOTE | 2024-08-25 17:29 | PM.CALLCOV.1 ---
Call Coverage Note Note Date of Patient Contact: 08/25/24 Narrative of Care Provided: 64 M with active substance / opiate use disorder presenting with R wrist swelling for the past week. He is status post right hand laceration traumatic median nerve flexor tendon lacerations with a post injury infection and rerupture flexor tendons middle finger. Then status post I and D and rerepair FDS and FDP to middle finger on 05/16/2024 and closure. At that time he was recommended for 2-4 weeks of IV antibiotics but due to his housing situation at the time he was refusing. He did well with a 4 week course of outpatient PO antibiotics but on imaging he has recurrent abscess today. He is not a candidate for SNF rehab given his substance use and I do not have availability for formal infectious disease consultation here. At this time, patient IS willing to undergo IV antibiotic treatments if available as he does not wish for this infection to recur in the future. Given complex social situation and recurrence of abscess, recommend transfer to center with infectious disease consultation available. Did discuss with Dr. Paz whom also agreed with recommendation for infectious disease. For now, manage opiate withdrawal with 20 mg QID of methadone, which worked previously quite well. Dilaudid also worked well previously for pain control on his last admission.
[2024-08-25] MEDS: METHADONE 10 MG TABLET 20 MG PO ×2 (18:06→22:28)
[2024-08-25] MEDS: cefTRIAXone 2,000 MG in SODIUM CHLORIDE 0.9% 100 ML 200 MG IV (18:06)
[2024-08-25 22:20] VITALS: BP 129/85; PULSE 76; RESP 20; O2SAT 99
[2024-08-25 22:44] VITALS: BP 147/87; PULSE 68; RESP 16; TEMP 36.5; O2SAT 100
[2024-08-25 23:10] VITALS: BMI 21.1
[2024-08-26] VITALS (17 sets, daily range): BP systolic 114–158; BP diastolic 71–94; PULSE 17–80; RESP 14–17; TEMP 36.1–36.8; O2SAT 97–100; BMI 21.1
--- NOTE | 2024-08-26 01:31 | PM.HP.1 ---
History of Present Illness History of Present Illness Chief complaint: infection right hand Narrative: 64 y/o with PMH of drug use and recent right distal forearm / wrist injury, presented with abscess. Not septic. He fell on a glass jar and sustained a 4-1/2 cm transverse laceration to his volar right wrist he also sustained a separate 3 cm laceration at the base of thumb metacarpal. He was noted to have no active flexion of his middle finger he did have active flexion of the ring and small finger. He has a previous index finger partial amputation at the level of the proximal phalanx that is remote injury. He underwent surgery by Dr Paz on 04/22/2024, FDS and FDP repair of the middle finger and repair of the median nerve. He subsequently had abscess developed and had I&D. This is a requernt abscess. Admitted to medicine with orthopedic surgery evaluation and incision and drainage. PENDING SALE TO [facility] Medical History Current recreational drug use Amputation of finger, right Surgical History History of orthopedic surgery (04/22/24) Social History household members: none Smoking Status: Current every day smoker alcohol intake: current Meds Home Medications and Allergies Allergies Allergy/AdvReac Type Severity Reaction Status Date / Time No Known Drug Allergies Allergy Verified 08/25/24 23:20 Review of Systems Review of Systems Narrative: General - w/o fever, chills or sweats MSK - tender wrist CVS - w/o chest pain or palpitations RS - w/o shortness ofg breath Exam Vital Signs (past 8 hours): - 08/25/24 22:20 Pulse Rate 76 Respiratory Rate 20 Blood Pressure 129/85 Pulse Oximetry 99 Oxygen Delivery Method Room Air Oxygen Delivery Method Room Air Narrative Exam Narrative: General - in no distress Ext - large right, distal forearm / wrist abscess, tender CVS - RRR RS - normal respiratory effort Psych -lucid, appropriate mood Objective Imaging CT - Upper Extremity: Radiologist's impression: 1. Extensive cellulitis in distal forearm with suggestion of soft tissue/intramuscular abscess collection in volar aspect of distal forearm measures up to 1.9 x 1.4 x 2.1 cm in size. 2. 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 No fracture or dislocation. No CT evidence of osteomyelitis. Labs 08/25/24 14:05 08/25/24 14:05 Labs: Laboratory Results - last 24 hr 08/25/24 08/25/24 14:05 14:12 WBC 7.4 RBC 4.36 L Hgb 13.3 L Hct 38.6 L MCV 88.5 MCH 30.5 MCHC 34.5 RDW 13.6 Plt Count 192 Neut % (Auto) 69.8 Lymph % (Auto) 18.4 L [place] % (Auto) 6.3 Eos % (Auto) 5.0 H Baso % (Auto) 0.5 Neut # (Auto) 5100 Lymph # (Auto) 1400 [place] # (Auto) 500 Eos # (Auto) 400 Baso # (Auto) 0 ESR 10 Sodium 139 Potassium 3.9 Chloride 100 Carbon Dioxide 32 BUN 20 Creatinine 0.72 Estimated GFR > 60 BUN/Creatinine Ratio 27.8 H Glucose 104 H Lactate 1.2 Calcium 9.0 Total Bilirubin 0.4 AST 33 ALT 22 Alkaline Phosphatase 75 C-Reactive Protein < 0.5 Total Protein 7.5 Albumin 4.4 Globulin 3.1 Albumin/Globulin Ratio 1.4 Procalcitonin 0.048 Assessment & Plan Assessment and plan (1) Abscess of skin of right wrist: Status: Acute (2) Current recreational drug use: Problem details: Fentanyl, methamphetamine, marijuana Status: Acute Assessment & Plan narrative: Rt Wrist Abscess - NPO - IVFs - Sx will I&D Drug use - methadone with resumed PO DVT prophylaxis - SCDs Patient consented to telemedicine, audio-video encounter with RN assisting during the exam. Patient located at [place], [place]. Provider located in [place]. Time-Based Coding :: [TOTAL MINUTES] spent with patient and on the chart (including review of chart, obtaining history, exam, reviewing outside data, placing orders, documenting exam and treatment plan, and counseling patient) on [DATE].
[2024-08-26] MEDS: LACTATED RINGERS 1,000 ML 100 ML IV (02:52)
[2024-08-26] MEDS: VANCOMYCIN HCL 750 MG in SODIUM CHLORIDE 0.9% 250 ML 250 MG IV (02:52)
--- NOTE | 2024-08-26 06:37 | PM.CN ---
History of Present Illness Consult details Date Patient Seen: 08/26/24 Time Patient Seen: 06:37 Chief complaint: infection right hand Reason for consult: Wrist abscess right Requesting provider: Allen Villalobos Narrative: Osman is a 62-year-old gentleman history of a traumatic laceration to his right wrist on a glass jar sustaining complete laceration of his median nerve as well as complete flexor digitorum profundus and flexor digitorum superficialis to the middle finger, flexor digitorum profundus to the index finger and flexor digitorum superficialis to the ring finger and laceration palmaris longus). He underwent median nerve repair and flexor tendon repair April of 2024. He later had a washout for infection. Due to a complex social situation with the patient left Against Medical Advice and re-presented for care several times. Ultimately he was determined not to be a candidate for patient IV antibiotics due to social complexity and medical history. He was treated on oral antibiotics and initially did well. The last time I saw him in May of 2024 all incisions were well healed and motion was improving well with hand therapy. He did have a separate incident where he sustained a burn to his middle finger that was healing. I have not seen him in several months. She presented to the ER today with a one-week history of increased swelling at the volar wrist under the area of the previous surgery. He denies any fevers or chills. Denies any other recent illnesses or significant changes in his health. He notes the previous burn to the middle finger distal tip continues to heal and a scabbed over. He denies any other areas of infection. He does not use intravenous drugs. He does take fentanyl but does not inject. He was not febrile does not have a white count ESR only 10 but has a large swelling consistent with an abscess at the volar wrist. There was no open wound or drainage. Meds Home Medications and Allergies Home Medications ?Medication ?Instructions ?Recorded ?Confirmed ?Type No Known Home Medications 08/26/24 08/26/24 History Allergies Allergy/AdvReac Type Severity Reaction Status Date / Time No Known Drug Allergies Allergy Verified 08/26/24 09:36 Review of Systems Review of Systems ROS: Yes All systems reviewed with the patient and are negative except as otherwise documented Exam Vital Signs (past 8 hours): - 08/25/24 22:44 Temperature 97.7 F Pulse Rate 68 Respiratory Rate 16 Blood Pressure 147/87 H Pulse Oximetry 100 Oxygen Flow Rate 0 Oxygen Delivery Method Room Air Oxygen Flow Rate 0 Narrative Exam Narrative: Alert and oriented male in no acute distress cooperative with the examination today. Unlabored breathing on room air lungs clear to auscultation. HEENT normocephalic atraumatic. Heart regular rate and rhythm. Right upper extremity demonstrates previous amputation of the index finger there is a healing burn of the distal proximal tip near the nail of the middle finger that is scabbed over and does not appear infected. Full motion of the ring and small finger. Limited flexion of the middle finger proximally 50? at the MP, for 30 at the PIP and 30 at the D IP flexion able to actively extend. Full range of motion of the thumb. Decreased sensation median nerve distribution but slightly improved from previous examination. Volar scar heel on the wrist is a fluctuant swelling mass consistent with abscess of scar proximally 5 x 3 cm. Slight erythema no streaking or ascending outside previous demarcation lines. No active drainage. He demonstrates active wrist flexion and extension. Elbow is benign. Palpable radial pulse. Objective Labs 08/25/24 14:05 08/25/24 14:05 Labs: Laboratory Results - last 24 hr 08/25/24 08/25/24 14:05 14:12 WBC 7.4 RBC 4.36 L Hgb 13.3 L Hct 38.6 L MCV 88.5 MCH 30.5 MCHC 34.5 RDW 13.6 Plt Count 192 Neut % (Auto) 69.8 Lymph % (Auto) 18.4 L [place] % (Auto) 6.3 Eos % (Auto) 5.0 H Baso % (Auto) 0.5 Neut # (Auto) 5100 Lymph # (Auto) 1400 [place] # (Auto) 500 Eos # (Auto) 400 Baso # (Auto) 0 ESR 10 Sodium 139 Potassium 3.9 Chloride 100 Carbon Dioxide 32 BUN 20 Creatinine 0.72 Estimated GFR > 60 BUN/Creatinine Ratio 27.8 H Glucose 104 H Lactate 1.2 Calcium 9.0 Total Bilirubin 0.4 AST 33 ALT 22 Alkaline Phosphatase 75 C-Reactive Protein < 0.5 Total Protein 7.5 Albumin 4.4 Globulin 3.1 Albumin/Globulin Ratio 1.4 Procalcitonin 0.048 [facility] Medical History Current recreational drug use Amputation of finger, right Surgical History History of orthopedic surgery (04/22/24) Social History household members: none Tobacco & Substance Use Smoking Status: Current every day smoker alcohol intake: current Assessment & Plan Assessment and plan (1) Abscess of skin of right wrist: Status: Acute (2) Abscess: Status: Acute Assessment & Plan narrative: Deep abscess volar right wrist. History of previous MRSA infection complex history of previous traumatic laceration with median nerve transection and flexor tendon transection and repair. This is a recurrence of infection after failure of antibiotics several months ago. Indicated for repeat irrigation and debridement of abscess. We will would recommend Infectious Disease consultation we will likely require extended outpatient IV antibiotics. Patient was social situation has been complex for this. Patient does endorse today that he would be willing to go to a long term facility and receive antibiotics. We will need close coordination with Infectious Disease with this. Did discuss extensively with internal medicine hospitalist Dr. Pedroza in last evening about this patient's past history medical complexity and the anticipated need for long-term antibiotics following debridement surgery. Due to previous difficulties there was a recommendation to try to get the patient to a facility with in-house Infectious Disease may have better chances at coordinating the outpatient antibiotic monitoring. If that is not an option then I would plan to wash out the abscess today and the patient was NPO for that but he will need Infectious Disease consultation and monitoring of antibiotics on an outpatient an ongoing basis to prevent recurrence. Decision for surgery. Medically complex patient requirement for IV antibiotics. Plan for I and D today. Time-Based Coding :: [TOTAL MINUTES] spent with patient and on the chart (including review of chart, obtaining history, exam, reviewing outside data, placing orders, documenting exam and treatment plan, and counseling patient) on [DATE].
[2024-08-26] MEDS: HYDROMORPHONE 0.5 MG INJ IV (08:00)
[2024-08-26] MEDS: VANCOMYCIN 1,000 MG/200 ML PIGGYBACK 200 MG IV ×3 (08:00→22:25)
[2024-08-26] MEDS: METHADONE 10 MG TABLET 20 MG PO ×4 (08:01→20:13)
[2024-08-26] MEDS: SODIUM CHLORIDE 0.9% FLUSH 10 ML IV ×2 (08:01→20:13)
[2024-08-26] MEDS: LACTATED RINGERS 1,000 ML 42 ML IV (09:49)
--- NOTE | 2024-08-26 10:48 | PM.PREOP ---
Pre-operative Note Interval Note History & Physical reviewed/Exam performed by Physician: Yes Changes to H&P: No
--- NOTE | 2024-08-26 11:31 | SUR.OPER ---
Supine on padded OR bed, head on pillow, left arm secured on padded arm board at <90 degrees abduction, legs uncrossed, safety belt at thigh, tape over blanket over lower legs. right arm prepped into field
[2024-08-26] MEDS: VANCOMYCIN 1,000 MG VIAL 1000 MG TOP (11:37)
[2024-08-26] MEDS: BUPIVACAINE 0.25% W/ EPI 30 ML VIAL INJ (11:38)
--- NOTE | 2024-08-26 12:05 | P.OP_ITS ---
Operative Date/Time/Diagnoses Date of procedure: 08/26/24 Time of procedure: 11:08 Pre-op diagnosis: Right wrist infection, abscess deep, chronic Post-op diagnosis: same Procedure & Clinicians Procedure: Irrigation and debridement skin subcutaneous tissue tendon CPT code 70317 right wrist Same procedure as scheduled: Yes Indications: The patient is a 64-year-old gentleman that sustained a traumatic laceration to his volar right wrist in April of 2024 where he sustained a traumatic complete laceration of his median nerve as well as lacerations of the FDP and FDS to the index and middle finger. He had previously had a remote index finger amputation. In April he underwent repair of his median nerve and repair of his flexor tendons. He later had a infection and rerupture of the flexor tendons to the middle finger. He had a washout and revision repair of the middle finger flexors. He was treated with oral antibiotics as complex social situation did not permit long-term IV use. He appeared to resolve his infection and was doing well in occupational therapy and in clinic when last seen in May. He presented in the last week with new swelling and fluctuance at the incision and was found to have recurrence of deep infection and indicated for washout. Prior to this he states he was noting the feeling starting to come back with tingling in his hand and noted limited but some active flexion of his middle finger and states he has been otherwise doing reasonably well until the last week and a half. Denies any recent new illnesses or exposures. He was indicated for exploration and debridement of the abscess and underlying structures. He has been counseled of the recommendation for long-term IV antibiotics as he failed oral previous. We do understand this would be challenging with the social situation. The patient does express desire to potentially be in a organize setting with IV antibiotics which previously was not an option. Coordination with the hospitalist and infectious disease teams for this will be helpful. He understands the risk for need for additional procedures and washouts. The risks and benefits of the procedure have been discussed with the patient and given the opportunity to ask questions. The risks of surgery include but are not limited to infection, malunion, nonunion, persistence of pain, damage to nerves and blood vessels, posttraumatic arthritis, DVT, PE, cardiopulmonary complications and . The patient expressed a thorough understanding of the risks and benefits of surgery and has elected to proceed. Consent was signed . Surgeon: Katia Paz Click Yes if Unassisted: No Anesthesia Type: General and Local Operative Notes Findings: To healed wrist lacerations. T curved more radial laceration from the original injury and surgery and the more ulnar longitudinal scar from the washout where the previous abscess was. This is where the recurrent abscess was and this more ulnar incision area of 2 cm of fluctuance over the more ulnar incision on incision there was immediate yellow purulence that was noted this tracked down to the level of the flexor tendon repairs where partially torn FiberWire from the middle finger flexor tendon was observed this was removed with a rongeur. Superficially and just radial to the incision the median nerve was noted and intact from the previous repair. There was copious firm scar tissue. Abscess did track down to the flexor tendons repair locally but did not appear to expand proximal or distal along the flexor tendon sheath and was, abscess was excised sharply in the skin and subcutaneous tissue. Tendon was debrided sharply Closure Type: primary Specimen(s): other (Culture, sensitivity Gram stain, deep tissue for PCR.) Applied: other (Dressing) Estimated Blood Loss (mL): 20 Tourniquet time (min): 26 Procedure in detail: Patient was seen in the preoperative area the site of surgery was marked informed consent confirmed this was the right wrist. The patient was brought back to the operating room by the anesthesia team positioned in the supine position with the right arm on a hand table. The right arm was prepped and draped in the standard sterile fashion a formal time-out procedure was performed confirming the patient's side and site of surgery and presence of informed consent. The patient was on scheduled antibiotics and a just received his scheduled vancomycin. [place] exsanguination was utilized and the tourniquet raised on the brachium to 250 mm of mercury. Attention was turned to the right wrist there were 2 incisions and more radial incision were ulnar longitudinal incision scar. The more radial incision was the extension of the previous traumatic laceration and the more ulnar longitudinal scar was from the subsequent I and D where the abscess was located. This is where the recurrent abscess was as well. Careful incision was made down through the more ulnar volar longitudinal scar and the abscess edges were excised sharply using the scalpel. On incision there was immediate yellow purulence noted this was cultured. Meticulous dissection was taken through the scar tissue subcutaneously and the abscess cavity did track down to the flexor tendon repair. Meticulous dissection was taken just radial to the incision line in the expected location of the median nerve median nerve was identified and carefully exposed and noted to be intact from the previous repair. Then attention was turned deep area was copious thick scar tissue that was carefully excised with the combination of sharp excision with a scalpel and with the rongeur. The flexor tendon repair for the middle finger was noted to be partially ruptured and there was some loose FiberWire suture this was removed using the rongeur and the tendon debrided sharply with a scalpel. The middle digit was taken through range of motion and there was still partial integrity as there was proximally 45 degree bend at the MP PIP and about 30? at the D IP joint that was able to be demonstrated. Once all visible FiberWire was removed in the abscess debrided it was apparent abscess went down to this level but did not appear to track proximally or distally along the tendon sheaths. At this point the tourniquet was released and hemostasis was achieved. There was noted to be full range of motion of the small finger ring finger and thumb limited range of motion of the middle digit. And again the previous index digit had previous amputation at the level of the proximal phalanx. Once hemostasis was achieved the wound was washed thoroughly with 3 L of saline using cysto tubing then 1 g of vancomycin powder was placed in the wound and it was closed with 2-0 PDS 4-0 Monocryl and 3-0 nylon suture. 15 cc of 0.25% Marcaine with epinephrine were injected for local anesthesia. Fingers pinked up well. Dressing was placed with Xeroform gauze Webril and an Sal wrap. The patient was awoken from anesthesia and taken to the recovery unit in good condition there were no immediate complications for this procedure. Counts were correct. Complications: none Post-operative Condition: stable Disposition: PACU Plan for aftercare: Keep dressing clean dry intact. May change if saturated to clean gauze and an Sal wrap. Gentle wrist and finger range of motion limit lifting to 5 lb. We will need antibiotic plan based on cultures. Can follow up in Orthopedic Clinic in 2 weeks for wound check.
[2024-08-26] MEDS: OXYCODONE IR 5 MG TABLET PO (12:22)
[2024-08-26] MEDS: ACETAMINOPHEN 325 MG TABLET 975 MG PO (12:25)
--- NOTE | 2024-08-26 13:53 | CM.DANOTE ---
Initial DCP Assessment Note Pt is a 64 yo male, lives in an RV at the following address: is [address] [place], hx of polysubstance use -according to nursing admission assessment: fentanyl, meth, inhalants, THC. Patient admitted for management of Wrist abscess right, patient in the OR today with Dr Paz for I+D. Patient likely to need manager terminal IV abx. Dr Pedroza has consulted Andrea Greene who has recommended inpatient management of this infection until patient can safely be discharged with outpatient follow up. PCP: None Payer: [employer] Reviewed chart, pt discussed in multidisciplinary rounds this morning. Limited discharge options due to patient's complex social situation. Patient may be a candidate for swing beds. Plan: Discharge home to RV vs swing beds with ongoing IV abx anticipated. Patient has left AMA in the past. CM team will plan to follow clinical course closely. ALDA Moctezuma Discharge Planning/Care Management CM Discharge Assessment Start: 08/25/24 23:10 Freq: Status: Active Protocol: Document 08/26/24 13:45 MARTIN (Rec: 08/26/24 13:53 MARTIN [id number]) Discharge Planning Assessment Assigned Discharge ALDA Rachel Home Health Aide DPOA/Assigned Lanie Cabrera, sister ([place]) [phone] Designee Name Contact Information Mary EllenKyle brower, #[phone] Advance Directives? No Advance Directives No on File History Provided By Medical Record Has Patient been No admitted in last 30 days? Comment Last admission was in May, abscess of right hand. Prior Living RV Arrangements Household Members none Independent with ADL Yes 's Is patient alert and Yes oriented? Barriers to Yes Discharge Comment Patient is reportedly an active drug user, current fentanyl use. Hx of fentanyl, meth, ecstasy, THC. Discharge Plan Home Transportation Self vs friend Arrangement
--- NOTE | 2024-08-26 18:18 | P.PN_ITS ---
Subjective Subjective Interval history: 64 M with active substance / opiate use disorder presenting with R wrist swelling for the past week. He is status post right hand laceration traumatic median nerve flexor tendon lacerations with a post injury infection and rerupture flexor tendons middle finger. Then status post I and D and rerepair FDS and FDP to middle finger on 05/16/2024 and closure. At that time he was recommended for 2-4 weeks of IV antibiotics but due to his housing situation at the time he was refusing. He did well with a 4 week course of outpatient PO antibiotics but on imaging he has recurrent abscess. He underwent I&D with Dr. Paz this morning. Pain is controlled afterwards. Minimal withdrawal symptoms today. Exam Vital Signs (past 8 hours): - 08/26/24 12:11 08/26/24 12:16 08/26/24 12:21 Temperature 98.3 F 97.8 F Pulse Rate 80 80 17 L Respiratory Rate 16 16 15 Blood Pressure 139/82 129/77 140/80 Pulse Oximetry 97 97 97 Oxygen Delivery Method Room Air Room Air Room Air Oxygen Flow Rate 08/26/24 12:26 08/26/24 12:31 08/26/24 13:15 Temperature 97.2 F L Pulse Rate 77 72 68 Respiratory Rate 15 16 16 Blood Pressure 132/83 138/85 114/82 Pulse Oximetry 97 97 99 Oxygen Delivery Method Room Air Room Air Oxygen Flow Rate 0 08/26/24 13:45 08/26/24 14:15 08/26/24 17:00 Temperature 97.0 F L Pulse Rate 70 71 72 Respiratory Rate 17 16 16 Blood Pressure 142/80 H 138/81 129/80 Pulse Oximetry 99 99 99 Oxygen Delivery Method Oxygen Flow Rate 0 0 0 08/26/24 18:07 Temperature Pulse Rate 68 Respiratory Rate 14 Blood Pressure 132/71 Pulse Oximetry 99 Oxygen Delivery Method Oxygen Flow Rate 0 Oxygen Delivery Method Room Air Oxygen Flow Rate 0 Narrative Exam Narrative: Gen: disheveled male, WDWN, no acute distress CV: RRR no m/r/g Pulm: CTA b/l Ext: No edema, R hand dressed, moves fingers well no numbness Objective Labs 08/25/24 14:05 08/25/24 14:05 [facility] Medical History Current recreational drug use Amputation of finger, right Surgical History History of orthopedic surgery (04/22/24) Social History household members: none Smoking Status: Current every day smoker alcohol intake: current Assessment & Plan Assessment & Plan narrative: 1. Recurrent R wrist abscess. - Continue ceftriaxone and vancomycin, pending repeat operative cultures. Last time was MRSA. Discussed with orthopedic surgeon today as well. - Discussed with infectious disease over the phone today. Requested transfer from the ER but was ultimately admitted overnight anyway. He has limited options for outpatient treatment from here. What may have to happen is wait to discharge until infectious disease provider available for outpatient appointment to give Dalbavancin if MRSA confirmed. This medication is not available here / is non- formulary. - pain management as noted below - follow up operative cultures. 2. Opiate dependence and withdrawal - started methadone 20 QID with adequate control today and fairly mimimal withdrawal symptoms. Doing well today. - he likely has significant tolerance for opiates so may need higher dosing for pain control. Added oral dilaudid which he states he has previously had better results with in the past. - narcan is ordered in case of overdosing. Code: Full DVT: HSQ I have utilized all available immediate resources to obtain, update, or review the patient's current medications. Dispo: patient admitted under inpatient status. Will discharge home when able but complex outpatient infectious disease coordination will be needed prior to discharge. Time-Based Coding :: [TOTAL MINUTES] spent with patient and on the chart (including review of chart, obtaining history, exam, reviewing outside data, placing orders, documenting exam and treatment plan, and counseling patient) on [DATE].
[2024-08-26] MEDS: VANCOMYCIN TROUGH 1 REQUEST MISC (19:00)
[2024-08-26] MEDS: cefTRIAXone 2,000 MG in SODIUM CHLORIDE 0.9% 100 ML 200 MG IV (19:29)
[2024-08-26 19:40] LABS: Vancomycin Trough 17.9 ug/mL (10-20)
[2024-08-27] VITALS (8 sets, daily range): BP systolic 129–136; BP diastolic 78–92; PULSE 60–84; RESP 16; TEMP 36.4–36.9; O2SAT 97–100
[2024-08-27] MEDS: HYDROMORPHONE 2 MG TABLET PO ×4 (04:10→21:18)
[2024-08-27 05:59] LABS: Add Manual Diff / Slide Review NO; Basophils Absolute Auto 100 /uL (0-100); Basophils Percent Auto 0.7 % (0-2); Eosinophils Absolute Auto 0 /uL (0-450); Eosinophils Percent Auto 0.2 % (2-4); Hematocrit 43.3 % (41-53); Hemoglobin 14.9 g/dL (13.5-17.5); Lymphocytes Absolute Auto 1500 /uL (1100-4500); Lymphocytes Percent Auto 9.8 % (25-40); Mean Corpuscular HGB Conc 34.4 % (30-36); Mean Corpuscular Hemoglobin 30.4 PG (26-34); Mean Corpuscular Volume 88.5 fL (80-100); Monocytes Absolute Auto 700 /uL (0-900); Monocytes Percent Auto 4.7 % (3-14); Neutrophils Absolute Auto 12800 /uL (1500-7000); Neutrophils Percent Auto 84.6 % (50-75); Platelet Count 208 X10^3/uL (150-400); Red Cell Distribution Width 13.6 % (11.6-14.8); White Blood Cell Count 15.1 X10^3/uL (4.5-11.0)
[2024-08-27 06:09] LABS: Alanine Aminotransferase 23 IU/L (<50); Albumin 4.1 g/dL (3.5-5.0); Albumin Globulin Ratio 1.3 (1.0-2.8); Alkaline Phosphatase 86 U/L (38-126); Aspartate Aminotransferase 38 IU/L (17-59); BUN Creatinine Ratio 28.6 (6-22); Bilirubin Total 0.4 mg/dL (0.2-1.3); Blood Urea Nitrogen 16 mg/dL (9-20); Calcium 9.2 mg/dL (8.4-10.2); Carbon Dioxide 27 mmol/L (22-32); Chloride 102 mmol/L (98-107); Estimated Glomerular Filt Rate > 60 mL/min (>60); Globulin 3.2 g/dL (1.7-4.1); Glucose 101 mg/dL (70-99); HEMOLYSIS < 15 (0-50); Potassium 4.1 mmol/L (3.4-5.1); Sodium 135 mmol/L (137-145); Total Protein 7.3 g/dL (6.3-8.2)
[2024-08-27] MEDS: VANCOMYCIN 1,000 MG/200 ML PIGGYBACK 200 MG IV ×3 (06:47→22:52)
[2024-08-27] MEDS: ENOXAPARIN 40 MG/0.4 ML SYRINGE SUBCUT (08:14)
[2024-08-27] MEDS: METHADONE 10 MG TABLET 20 MG PO ×4 (08:14→20:16)
[2024-08-27] MEDS: ACETAMINOPHEN 325 MG TABLET 975 MG PO ×2 (13:42→20:16)
[2024-08-27] MEDS: IBUPROFEN 400 MG TABLET 600 MG PO ×2 (13:42→21:18)
--- NOTE | 2024-08-27 16:22 | P.PN_ITS ---
Subjective Subjective Interval history: 64 M with active substance / opiate use disorder presenting with R wrist swelling for the past week. He is status post right hand laceration traumatic median nerve flexor tendon lacerations with a post injury infection and rerupture flexor tendons middle finger. Then status post I and D and rerepair FDS and FDP to middle finger on 05/16/2024 and closure. At that time he was recommended for 2-4 weeks of IV antibiotics but due to his housing situation at the time he was refusing. He did well with a 4 week course of outpatient PO antibiotics but on imaging he has recurrent abscess. He underwent I&D with Dr. Paz on 08/26. Pain is a bit worse today, dilaudid not doing much wanting to switch to oxycodone for his R wrist pain. Exam Vital Signs (past 8 hours): - 08/27/24 12:00 08/27/24 16:00 Temperature 98.3 F 98.5 F Pulse Rate 73 67 Respiratory Rate 16 16 Blood Pressure 129/78 130/92 H Pulse Oximetry 98 97 Oxygen Flow Rate 0 0 Oxygen Delivery Method Room Air Oxygen Flow Rate 0 Narrative Exam Narrative: Gen: disheveled male, WDWN, no acute distress CV: RRR no m/r/g Pulm: CTA b/l Ext: No edema, R hand dressed, moves fingers though mild swelling and some pain in wrist with movement, no numbness Objective Labs 08/27/24 05:01 08/27/24 05:01 Labs: Laboratory Results - last 24 hr 08/26/24 08/27/24 19:10 05:01 WBC 15.1 H D RBC 4.90 Hgb 14.9 Hct 43.3 MCV 88.5 MCH 30.4 MCHC 34.4 RDW 13.6 Plt Count 208 Neut % (Auto) 84.6 H Lymph % (Auto) 9.8 L [place] % (Auto) 4.7 Eos % (Auto) 0.2 L Baso % (Auto) 0.7 Neut # (Auto) 33549 H Lymph # (Auto) 1500 [place] # (Auto) 700 Eos # (Auto) 0 Baso # (Auto) 100 Sodium 135 L Potassium 4.1 Chloride 102 Carbon Dioxide 27 BUN 16 Creatinine 0.56 L Estimated GFR > 60 BUN/Creatinine Ratio 28.6 H Glucose 101 H Calcium 9.2 Magnesium 2.0 Total Bilirubin 0.4 AST 38 ALT 23 Alkaline Phosphatase 86 Total Protein 7.3 Albumin 4.1 Globulin 3.2 Albumin/Globulin Ratio 1.3 Vancomycin Trough 17.9 PFSH Medical History Current recreational drug use Amputation of finger, right Surgical History History of orthopedic surgery (04/22/24) Social History household members: none Smoking Status: Current every day smoker alcohol intake: current Assessment & Plan Assessment & Plan narrative: 1. Recurrent R wrist abscess. - Continue ceftriaxone and vancomycin, pending repeat operative cultures. Last time was MRSA. WBC up slightly to 15.1, possible secondary to surgical interventions. Continue to follow. - Discussed with infectious disease over the phone on 08/26. Requested transfer from the ER but was ultimately admitted overnight anyway. He has limited options for outpatient treatment from here. What may have to happen is wait to discharge until infectious disease provider available for outpatient appointment to give Dalbavancin if MRSA confirmed. This medication is not available here / is non- formulary. - pain management as noted below - follow up operative cultures. 2. Opiate dependence and withdrawal - started methadone 20 QID with adequate control today and fairly mimimal withdrawal symptoms. Doing well today. - he likely has significant tolerance for opiates so may need higher dosing for pain control. Added oral dilaudid which was not effective today, changed to oxycodone instead. Code: Full DVT: HSQ I have utilized all available immediate resources to obtain, update, or review the patient's current medications. Dispo: patient admitted under inpatient status. Will discharge home when able but complex outpatient infectious disease coordination will be needed prior to discharge. Time-Based Coding :: [TOTAL MINUTES] spent with patient and on the chart (including review of chart, obtaining history, exam, reviewing outside data, placing orders, documenting exam and treatment plan, and counseling patient) on [DATE].
[2024-08-27] MEDS: cefTRIAXone 2,000 MG in SODIUM CHLORIDE 0.9% 100 ML 200 MG IV (17:44)
[2024-08-27] MEDS: SODIUM CHLORIDE 0.9% FLUSH 10 ML IV (20:17)
--- NOTE | 2024-08-27 22:50 | PM.PNPO.1 ---
Subjective Subjective Date Patient Seen: 08/27/24 Interval history: pod 1 I&D R wrist --cultures - gram + cocci on abx PCR pending consider adding gabapentin 300 TID if pain control not improved tomorrow finger/ hand ROM as tolerated Exam Vital Signs (past 8 hours): - 08/27/24 16:00 08/27/24 19:00 08/27/24 21:00 Temperature 98.5 F 97.6 F Pulse Rate 67 60 Respiratory Rate 16 16 Blood Pressure 130/92 H 130/86 Pulse Oximetry 97 100 97 Oxygen Delivery Method Room Air Oxygen Flow Rate 0 0 Oxygen Delivery Method Room Air Oxygen Flow Rate 0 Objective Labs 08/27/24 05:01 08/27/24 05:01 Labs: Laboratory Results - last 24 hr 08/27/24 05:01 WBC 15.1 H D RBC 4.90 Hgb 14.9 Hct 43.3 MCV 88.5 MCH 30.4 MCHC 34.4 RDW 13.6 Plt Count 208 Neut % (Auto) 84.6 H Lymph % (Auto) 9.8 L [place] % (Auto) 4.7 Eos % (Auto) 0.2 L Baso % (Auto) 0.7 Neut # (Auto) 27321 H Lymph # (Auto) 1500 [place] # (Auto) 700 Eos # (Auto) 0 Baso # (Auto) 100 Sodium 135 L Potassium 4.1 Chloride 102 Carbon Dioxide 27 BUN 16 Creatinine 0.56 L Estimated GFR > 60 BUN/Creatinine Ratio 28.6 H Glucose 101 H Calcium 9.2 Magnesium 2.0 Total Bilirubin 0.4 AST 38 ALT 23 Alkaline Phosphatase 86 Total Protein 7.3 Albumin 4.1 Globulin 3.2 Albumin/Globulin Ratio 1.3 [facility] Medical History Current recreational drug use Amputation of finger, right Surgical History History of orthopedic surgery (04/22/24) Social History household members: none Smoking Status: Current every day smoker alcohol intake: current Assessment & Plan Post-op Postoperative Procedures: Procedures Operation Date: 08/26/24 10:00 Actual Procedure Side Surgeon p Incision and Drainage right wrist and forearm abscess Right Katia Paz MD
[2024-08-28] MEDS: ACETAMINOPHEN 325 MG TABLET 975 MG PO ×3 (06:08→20:45)
[2024-08-28] MEDS: IBUPROFEN 400 MG TABLET 600 MG PO ×3 (06:09→20:44)
[2024-08-28 06:28] LABS: Add Manual Diff / Slide Review NO; Basophils Absolute Auto 0 /uL (0-100); Basophils Percent Auto 0.5 % (0-2); Eosinophils Absolute Auto 300 /uL (0-450); Eosinophils Percent Auto 3.1 % (2-4); Hematocrit 43.8 % (41-53); Hemoglobin 14.9 g/dL (13.5-17.5); Lymphocytes Absolute Auto 2100 /uL (1100-4500); Mean Corpuscular Hemoglobin 30.2 PG (26-34); Mean Corpuscular Volume 88.8 fL (80-100); Monocytes Absolute Auto 500 /uL (0-900); Monocytes Percent Auto 5.1 % (3-14); Neutrophils Absolute Auto 6400 /uL (1500-7000); Neutrophils Percent Auto 68.3 % (50-75); Platelet Count 224 X10^3/uL (150-400); Red Blood Cell Count 4.93 X10^6/uL (4.5-5.9); Red Cell Distribution Width 13.8 % (11.6-14.8); White Blood Cell Count 9.3 X10^3/uL (4.5-11.0)
[2024-08-28 06:40] LABS: Alanine Aminotransferase 21 IU/L (<50); Albumin 4.3 g/dL (3.5-5.0); Albumin Globulin Ratio 1.2 (1.0-2.8); Alkaline Phosphatase 81 U/L (38-126); Aspartate Aminotransferase 40 IU/L (17-59); BUN Creatinine Ratio 31.1 (6-22); Bilirubin Total 0.7 mg/dL (0.2-1.3); Blood Urea Nitrogen 19 mg/dL (9-20); Calcium 9.5 mg/dL (8.4-10.2); Carbon Dioxide 20 mmol/L (22-32); Chloride 106 mmol/L (98-107); Estimated Glomerular Filt Rate > 60 mL/min (>60); Globulin 3.6 g/dL (1.7-4.1); Glucose 89 mg/dL (70-99); Potassium 4.4 mmol/L (3.4-5.1); Sodium 136 mmol/L (137-145); Total Protein 7.9 g/dL (6.3-8.2)
[2024-08-28 06:44] LABS: HEMOLYSIS 68 (0-50)
[2024-08-28 07:00] VITALS: O2SAT 99
[2024-08-28] MEDS: VANCOMYCIN TROUGH 1 REQUEST MISC (07:46)
[2024-08-28] MEDS: HYDROMORPHONE 2 MG TABLET PO (07:47)
--- NOTE | 2024-08-28 08:05 | PM.PNPO.1 ---
Subjective Subjective Date Patient Seen: 08/28/24 Interval history: pod 2 I&D R wrist volar Soft tissue deep infection--wbc improved this am-- on IBV abx-- cx pending (G+cocci) last time grew MRSA -cultures today MRSA --seen this evening on the floor. Pain better controlled today. Exam Vital Signs (past 8 hours): Oxygen Delivery Method Room Air Oxygen Flow Rate 0 Narrative Exam Narrative: Lying in bed. Right wrist with Sal wrap in place. Dressing taken down incision inspected. No erythema. Sutures in place. Thickened scar tissue at volar wrist unchanged from previous. No purulence. No erythema. Demonstrates full range of motion of the small and ring finger. Demonstrates MCP flexion to about 50 PIP 40 and D IP 30 of middle finger. There has been an index finger amputation. Normal thumb function. Unchanged decreased sensation median nerve distribution. Brisk capillary refill. Objective Labs 08/28/24 06:18 08/28/24 06:18 Labs: Laboratory Results - last 24 hr 08/28/24 06:18 WBC 9.3 RBC 4.93 Hgb 14.9 Hct 43.8 MCV 88.8 MCH 30.2 MCHC 34.0 RDW 13.8 Plt Count 224 Neut % (Auto) 68.3 Lymph % (Auto) 23.0 L [place] % (Auto) 5.1 Eos % (Auto) 3.1 Baso % (Auto) 0.5 Neut # (Auto) 6400 Lymph # (Auto) 2100 [place] # (Auto) 500 Eos # (Auto) 300 Baso # (Auto) 0 Sodium 136 L Potassium 4.4 Chloride 106 Carbon Dioxide 20 L BUN 19 Creatinine 0.61 L Estimated GFR > 60 BUN/Creatinine Ratio 31.1 H Glucose 89 Calcium 9.5 Magnesium 2.0 Total Bilirubin 0.7 AST 40 ALT 21 Alkaline Phosphatase 81 Total Protein 7.9 Albumin 4.3 Globulin 3.6 Albumin/Globulin Ratio 1.2 Vancomycin Trough 19.0 PFSH Medical History Current recreational drug use Amputation of finger, right Surgical History History of orthopedic surgery (04/22/24) Social History household members: none Smoking Status: Current every day smoker alcohol intake: current Assessment & Plan Post-op Postoperative Procedures: Procedures Operation Date: 08/26/24 10:00 Actual Procedure Side Surgeon p Incision and Drainage right wrist and forearm abscess Right Katia Paz MD Postoperative day: 2 Postoperative status: doing well Postoperative status narrative: Postop from I and D right wrist for deep infection. Cultures consistent with MRSA. Waiting antibiotic plan. Due to social situation there the anticipated challenges with long-term IV antibiotics. Patient failed previous extended oral course in the past. Recommended for Infectious Disease input and management of outpatient antibiotic Can follow up in Orthopedic Clinic at [facility] orthopedics with Dr. Paz in 2 weeks for suture removal. Discussed with the patient risks of recurrent infection persistent stiffness. Also discussed risk for stiffness and decreased range of motion middle finger, chronic. And discussed timeline on his median nerve recovery. Postoperative plan: routine post-op care Postoperative plan narrative: Dressing change today. May change dressing as needed. Keep clean and dry. Follow up in Orthopedic Clinic in 2 weeks for suture removal. Range of motion of the wrist and fingers as tolerated. Quality VTE Deep Vein Thrombosis/Pulmonary Embolism Present on Admission: No
[2024-08-28 08:12] VITALS: BP 117/82; PULSE 78; RESP 16; TEMP 36.3; O2SAT 99
[2024-08-28] MEDS: METHADONE 10 MG TABLET 20 MG PO ×4 (08:39→20:45)
[2024-08-28] MEDS: ENOXAPARIN 40 MG/0.4 ML SYRINGE SUBCUT (08:39)
[2024-08-28] MEDS: VANCOMYCIN 1,500 MG/300 ML PIGGYBACK 200 MG IV ×2 (09:30→22:33)
--- NOTE | 2024-08-28 10:36 | CM.DPNOTE ---
GEOVANIP Cont Reviewed chart. Patient discussed in multidisciplinary rounds. Culture results still pending. Hx of MRSA. Dr Rodríguez, ID, [facility], returns to office Saturday for continued consultation. If patient requires ongoing IV abx and the drug, dosing, duration has been finalized; anticipate discharge home with outpatient follow up w/Dr Rodríguez vs swing beds if patient agreeable and swing beds will consider the referral. Social work team following clinical course closely in case any discharge needs or concerns arise. MARTIN
--- NOTE | 2024-08-28 10:54 | P.PN_ITS ---
Subjective Subjective Date Patient Seen: 08/28/24 Interval history: Chief complaint: Transverse laceration right volar wrist with infection and tendon involvement from a glass cut in a patient with intravenous drug use of that same forearm History of present illness: 08/25: 64 y/o with PMH of drug use and recent right distal forearm / wrist injury, presented with abscess. Not septic. He fell on a glass jar and sustained a 4-1/2 cm transverse laceration to his volar right wrist he also sustained a separate 3 cm laceration at the base of thumb metacarpal. He was noted to have no active flexion of his middle finger he did have active flexion of the ring and small finger. He has a previous index finger partial amputation at the level of the proximal phalanx that is remote injury. He underwent surgery by Dr Paz on 04/22/2024, FDS and FDP repair of the middle finger and repair of the median nerve. He subsequently had abscess developed and had I&D. This is a recurrent abscess. Admitted to medicine with orthopedic surgery evaluation and incision and drainage. Hospital course: 08/26: Operative note excerpt: ...Careful incision was made down through the more ulnar volar longitudinal scar and the abscess edges were excised sharply using the scalpel. On incision there was immediate yellow purulence noted this was cultured. Meticulous dissection was taken through the scar tissue subcutaneously and the abscess cavity did track down to the flexor tendon repair. Meticulous dissection was taken just radial to the incision line in the expected location of the median nerve median nerve was identified and carefully exposed and noted to be intact from the previous repair. Then attention was turned deep area was copious thick scar tissue that was carefully excised with the combination of sharp excision with a scalpel and with the rongeur. The flexor tendon repair for the middle finger was noted to be partially ruptured and there was some loose FiberWire suture this was removed using the rongeur and the tendon debrided sharply with a scalpel. The middle digit was taken through range of motion and there was still partial integrity as there was proximally 45 degree bend at the MP PIP and about 30? at the D IP joint that was able to be demonstrated. Once all visible FiberWire was removed in the abscess debrided it was apparent abscess went down to this level but did not appear to track proximally or distally along the tendon sheaths. At this point the tourniquet was released and hemostasis was achieved... 08/27: Pain is a bit worse today, dilaudid not doing much wanting to switch to oxycodone for his R wrist pain. 08/28: Pain control is satisfactory with oxycodone wound culture: 1. Methicillin Resis Staph Aureus M.I.C. RX --------- --- * Daptomycin 0.25 S * Vancomycin <=0.5 S * Ciprofloxacin <=0.5 S * Doxycycline <=0.5 S * Erythromycin >=8 R * Gentamicin <=0.5 S * Levofloxacin 0.25 S * Linezolid 2 S * Moxifloxacin <=0.25 S * Oxacillin Ben >=4 R * Rifampin <=0.5 S * Tetracycline >=16 R * Trimethoprim/Sulfamethoxazole <=10 S Review of systems: No fevers or chills No difficulty swallowing No chest pain palpitations wheezing or shortness a breath No nausea vomiting diarrhea constipation Physical exam: No acute distress HEENT unremarkable No labored respirations Abdomen nondistended Neurologic nonfocal Assessment and plan: 1. Recurrent R wrist abscess. * - Continue ceftriaxone and vancomycin, pending repeat operative cultures. Last time was MRSA. WBC up slightly to 15.1, possible secondary to surgical interventions. Continue to follow. * - Discussed with infectious disease over the phone on 08/26. Requested transfer from the ER but was ultimately admitted overnight anyway. He has limited options for outpatient treatment from here. What may have to happen is wait to discharge until infectious disease provider available for outpatient appointment to give Dalbavancin if MRSA confirmed. This medication is not available here / is non-formulary. * - pain management as noted below * - follow up operative cultures. 2. Opiate dependence and withdrawal * - started methadone 20 QID with adequate control today and fairly mimimal withdrawal symptoms. Doing well today. * - he likely has significant tolerance for opiates so may need higher dosing for pain control. Added oral dilaudid which was not effective today, changed to oxycodone instead. Code: Full DVT: HSQ Dispo: patient admitted under inpatient status. Will discharge home when able but complex outpatient infectious disease coordination will be needed prior to discharge. Time-Based Coding :: 35 minutes spent with patient and on the chart (including review of chart, obtaining history, exam, reviewing outside data, placing orders, documenting exam and treatment plan, and counseling patient) Exam Vital Signs (past 8 hours): - 08/28/24 07:00 08/28/24 08:12 Temperature 97.4 F L Pulse Rate 78 Respiratory Rate 16 Blood Pressure 117/82 Pulse Oximetry 99 99 Oxygen Delivery Method Room Air Oxygen Flow Rate 0 Oxygen Delivery Method Room Air Oxygen Flow Rate 0 Objective Labs 08/28/24 06:18 08/28/24 06:18 Labs: Laboratory Results - last 24 hr 08/28/24 06:18 WBC 9.3 RBC 4.93 Hgb 14.9 Hct 43.8 MCV 88.8 MCH 30.2 MCHC 34.0 RDW 13.8 Plt Count 224 Neut % (Auto) 68.3 Lymph % (Auto) 23.0 L [place] % (Auto) 5.1 Eos % (Auto) 3.1 Baso % (Auto) 0.5 Neut # (Auto) 6400 Lymph # (Auto) 2100 [place] # (Auto) 500 Eos # (Auto) 300 Baso # (Auto) 0 Sodium 136 L Potassium 4.4 Chloride 106 Carbon Dioxide 20 L BUN 19 Creatinine 0.61 L Estimated GFR > 60 BUN/Creatinine Ratio 31.1 H Glucose 89 Calcium 9.5 Magnesium 2.0 Total Bilirubin 0.7 AST 40 ALT 21 Alkaline Phosphatase 81 Total Protein 7.9 Albumin 4.3 Globulin 3.6 Albumin/Globulin Ratio 1.2 Vancomycin Trough 19.0 PFSH Medical History Current recreational drug use Amputation of finger, right Surgical History History of orthopedic surgery (04/22/24) Social History household members: none Smoking Status: Current every day smoker alcohol intake: current Assessment & Plan Time-Based Coding :: [TOTAL MINUTES] spent with patient and on the chart (including review of chart, obtaining history, exam, reviewing outside data, placing orders, documenting exam and treatment plan, and counseling patient) on [DATE].
--- NOTE | 2024-08-28 11:50 | PC.NURSE ---
Addendum entered by Victoria Abbasi R.N. 08/28/24 17:11: Pt resting all day in room. Splint cast to right arm CDI, SL intact/patent Had routine Tylenol & ibuprofen w/ good relief. Call light w/in reach, pt calls appropriately for needs. Original Note: Pt resting at intervals, Dsg to the right wrist CDI Med @ 0800 for discomfort w/good relief. Call light w/in reach, pt calls appropriately for needs
[2024-08-28 12:00] VITALS: BP 113/65; PULSE 66; RESP 16; TEMP 36.7; O2SAT 99
[2024-08-28 16:00] VITALS: BP 136/83; PULSE 58; RESP 16; TEMP 36.6; O2SAT 100; O2SAT 96
[2024-08-28] MEDS: cefTRIAXone 2,000 MG in SODIUM CHLORIDE 0.9% 100 ML 200 MG IV (18:29)
[2024-08-28 19:00] VITALS: O2SAT 100
[2024-08-28 20:00] VITALS: BP 130/66; PULSE 88; RESP 19; TEMP 36.7; O2SAT 100
[2024-08-28] MEDS: SODIUM CHLORIDE 0.9% FLUSH 10 ML IV (20:48)
[2024-08-29 00:37] VITALS: BP 124/73; PULSE 60; RESP 17; TEMP 36.6; O2SAT 100
[2024-08-29 05:42] VITALS: BP 128/85; PULSE 66; RESP 19; TEMP 37.2; O2SAT 100
[2024-08-29] MEDS: ACETAMINOPHEN 325 MG TABLET 975 MG PO ×3 (06:04→21:52)
[2024-08-29] MEDS: IBUPROFEN 400 MG TABLET 600 MG PO ×3 (06:04→21:52)
[2024-08-29] MEDS: HYDROMORPHONE 2 MG TABLET PO (06:09)
[2024-08-29 07:00] VITALS: O2SAT 99
[2024-08-29] MEDS: METHADONE 10 MG TABLET 20 MG PO ×4 (07:55→21:52)
[2024-08-29] MEDS: ENOXAPARIN 40 MG/0.4 ML SYRINGE SUBCUT (07:55)
[2024-08-29] MEDS: SODIUM CHLORIDE 0.9% FLUSH 10 ML IV ×2 (07:56→21:53)
[2024-08-29 08:00] VITALS: BP 112/82; PULSE 78; RESP 16; TEMP 36.3; O2SAT 99
[2024-08-29 09:06] LABS: Add Manual Diff / Slide Review NO; Basophils Absolute Auto 0 /uL (0-100); Basophils Percent Auto 0.5 % (0-2); Eosinophils Absolute Auto 200 /uL (0-450); Hematocrit 43.1 % (41-53); Hemoglobin 14.8 g/dL (13.5-17.5); Lymphocytes Absolute Auto 1400 /uL (1100-4500); Lymphocytes Percent Auto 16.2 % (25-40); Mean Corpuscular HGB Conc 34.3 % (30-36); Mean Corpuscular Hemoglobin 30.7 PG (26-34); Mean Corpuscular Volume 89.6 fL (80-100); Monocytes Absolute Auto 400 /uL (0-900); Monocytes Percent Auto 4.1 % (3-14); Neutrophils Absolute Auto 6900 /uL (1500-7000); Neutrophils Percent Auto 77.2 % (50-75); Platelet Count 229 X10^3/uL (150-400); Red Blood Cell Count 4.81 X10^6/uL (4.5-5.9); Red Cell Distribution Width 13.7 % (11.6-14.8); White Blood Cell Count 8.9 X10^3/uL (4.5-11.0)
[2024-08-29 09:30] LABS: Alanine Aminotransferase 22 IU/L (<50); Albumin 4.1 g/dL (3.5-5.0); Albumin Globulin Ratio 1.2 (1.0-2.8); Alkaline Phosphatase 78 U/L (38-126); Aspartate Aminotransferase 30 IU/L (17-59); Bilirubin Total 0.4 mg/dL (0.2-1.3); Blood Urea Nitrogen 18 mg/dL (9-20); Calcium 9.4 mg/dL (8.4-10.2); Carbon Dioxide 22 mmol/L (22-32); Chloride 106 mmol/L (98-107); Estimated Glomerular Filt Rate > 60 mL/min (>60); Globulin 3.4 g/dL (1.7-4.1); Glucose 153 mg/dL (70-99); HEMOLYSIS < 15 (0-50); Potassium 3.9 mmol/L (3.4-5.1); Sodium 140 mmol/L (137-145); Total Protein 7.5 g/dL (6.3-8.2)
[2024-08-29 11:30] LABS: Vancomycin Trough 14.7 ug/mL (10-20)
[2024-08-29] MEDS: VANCOMYCIN 1,500 MG/300 ML PIGGYBACK 200 MG IV (12:56)
[2024-08-29] MEDS: VANCOMYCIN TROUGH 1 REQUEST MISC (12:56)
--- NOTE | 2024-08-29 16:13 | P.PN_ITS ---
Subjective Subjective Date Patient Seen: 08/29/24 Interval history: Chief complaint: Transverse laceration right volar wrist with infection and tendon involvement from a glass cut in a patient with intravenous drug use of that same forearm History of present illness: 08/25:64 y/o with PMH of drug use and recent right distal forearm / wrist injury, presented with abscess. Not septic. He fell on a glass jar and sustained a 4-1/2 cm transverse laceration to his volar right wrist he also sustained a separate 3 cm laceration at the base of thumb metacarpal. He was noted to have no active flexion of his middle finger he did have active flexion of the ring and small finger. He has a previous index finger partial amputation at the level of the proximal phalanx that is remote injury. He underwent surgery by Dr Paz on 04/22/2024, FDS and FDP repair of the middle finger and repair of the median nerve. He subsequently had abscess developed and had I&D. This is a recurrent abscess. Admitted to medicine with orthopedic surgery evaluation and incision and drainage. Hospital course: 08/26:Operative note excerpt: ...Careful incision was made down through the more ulnar volar longitudinal scar and the abscess edges were excised sharply using the scalpel. On incision there was immediate yellow purulence noted this was cultured. Meticulous dissection was taken through the scar tissue subcutaneously and the abscess cavity did track down to the flexor tendon repair. Meticulous dissection was taken just radial to the incision line in the expected location of the median nerve median nerve was identified and carefully exposed and noted to be intact from the previous repair. Then attention was turned deep area was copious thick scar tissue that was carefully excised with the combination of sharp excision with a scalpel and with the rongeur. The flexor tendon repair for the middle finger was noted to be partially ruptured and there was some loose FiberWire suture this was removed using the rongeur and the tendon debrided sharply with a scalpel. The middle digit was taken through range of motion and there was still partial integrity as there was proximally 45 degree bend at the MP PIP and about 30? at the D IP joint that was able to be demonstrated. Once all visible FiberWire was removed in the abscess debrided it was apparent abscess went down to this level but did not appear to track proximally or distally along the tendon sheaths. At this point the tourniquet was released and hemostasis was achieved... 08/27:Pain is a bit worse today, dilaudid not doing much wanting to switch to oxycodone for his R wrist pain. 08/28: Pain control is satisfactory with oxycodone wound culture: 08/29: Pain control is satisfactory no fevers or chills 1. Methicillin Resis Staph Aureus M.I.C. RX --------- --- * Daptomycin 0.25 S * Vancomycin <=0.5 S * Ciprofloxacin <=0.5 S * Doxycycline <=0.5 S * Erythromycin >=8 R * Gentamicin <=0.5 S * Levofloxacin 0.25 S * Linezolid 2 S * Moxifloxacin <=0.25 S * Oxacillin Ben >=4 R * Rifampin <=0.5 S * Tetracycline >=16 R * Trimethoprim/Sulfamethoxazole <=10 S Review of systems: No fevers or chills No difficulty swallowing No chest pain palpitations wheezing or shortness a breath No nausea vomiting diarrhea constipation Physical exam: No acute distress HEENT unremarkable No labored respirations Abdomen nondistended Neurologic nonfocal Assessment and plan: 1. Recurrent R wrist abscess. * - Continue ceftriaxone and vancomycin, pending repeat operative cultures. Last time was MRSA. WBC up slightly to 15.1, possible secondary to surgical interventions. Continue to follow. * - Discussed with infectious disease over the phone on 08/26. Requested transfer from the ER but was ultimately admitted overnight anyway. He has limited options for outpatient treatment from here. What may have to happen is wait to discharge until infectious disease provider available for outpatient appointment to give Dalbavancin 1500 mg once weekly if MRSA confirmed. This medication is not available here / is non-formulary. * - pain management as noted below * - follow up operative cultures. 2. Opiate dependence and withdrawal * - started methadone 20 QID with adequate control today and fairly mimimal withdrawal symptoms. Doing well today. * - he likely has significant tolerance for opiates so may need higher dosing for pain control. Added oral dilaudid which was not effective today, changed to oxycodone instead. Code: Full DVT: HSQ Dispo: discharge home when able but complex outpatient infectious disease coordination will be needed prior to discharge. Time-Based Coding :: 35 minutes spent with patient and on the chart (including review of chart, obtaining history, exam, reviewing outside data, placing orders, documenting exam and treatment plan, and counseling patient) Exam Vital Signs (past 8 hours): Oxygen Delivery Method Room Air Oxygen Flow Rate 0 Objective Labs 08/29/24 08:42 08/29/24 08:42 Labs: Laboratory Results - last 24 hr 08/29/24 08/29/24 08:42 11:10 WBC 8.9 RBC 4.81 Hgb 14.8 Hct 43.1 MCV 89.6 MCH 30.7 MCHC 34.3 RDW 13.7 Plt Count 229 Neut % (Auto) 77.2 H Lymph % (Auto) 16.2 L [place] % (Auto) 4.1 Eos % (Auto) 2.0 Baso % (Auto) 0.5 Neut # (Auto) 6900 Lymph # (Auto) 1400 [place] # (Auto) 400 Eos # (Auto) 200 Baso # (Auto) 0 Sodium 140 Potassium 3.9 Chloride 106 Carbon Dioxide 22 BUN 18 Creatinine 0.72 Estimated GFR > 60 BUN/Creatinine Ratio 25.0 H Glucose 153 H Calcium 9.4 Magnesium 2.0 Total Bilirubin 0.4 AST 30 ALT 22 Alkaline Phosphatase 78 Total Protein 7.5 Albumin 4.1 Globulin 3.4 Albumin/Globulin Ratio 1.2 Vancomycin Trough 14.7 PFSH Medical History Current recreational drug use Amputation of finger, right Surgical History History of orthopedic surgery (04/22/24) Social History household members: none Smoking Status: Current every day smoker alcohol intake: current Assessment & Plan Time-Based Coding :: [TOTAL MINUTES] spent with patient and on the chart (including review of chart, obtaining history, exam, reviewing outside data, placing orders, documenting exam and treatment plan, and counseling patient) on [DATE]. Quality VTE Deep Vein Thrombosis/Pulmonary Embolism Present on Admission: No
[2024-08-29 18:00] VITALS: BP 118/76; PULSE 65; RESP 15; TEMP 36.6; O2SAT 97
[2024-08-29] MEDS: cefTRIAXone 2,000 MG in SODIUM CHLORIDE 0.9% 100 ML 200 MG IV (18:25)
[2024-08-29 19:00] VITALS: O2SAT 99
[2024-08-30] VITALS: BP 133/77; PULSE 63; RESP 19; TEMP 36.5; O2SAT 100
[2024-08-30] MEDS: VANCOMYCIN 1,500 MG/300 ML PIGGYBACK 200 MG IV ×2 (00:03→13:11)
[2024-08-30 06:00] VITALS: BP 124/69; PULSE 69; RESP 16; TEMP 36.8; O2SAT 98
[2024-08-30] MEDS: IBUPROFEN 400 MG TABLET 600 MG PO ×3 (06:06→21:20)
[2024-08-30] MEDS: ACETAMINOPHEN 325 MG TABLET 975 MG PO ×3 (06:06→21:29)
[2024-08-30 07:00] VITALS: O2SAT 98
[2024-08-30] MEDS: ENOXAPARIN 40 MG/0.4 ML SYRINGE SUBCUT (09:00)
[2024-08-30] MEDS: METHADONE 10 MG TABLET 20 MG PO ×4 (09:00→21:21)
[2024-08-30] MEDS: SODIUM CHLORIDE 0.9% FLUSH 10 ML IV ×2 (09:00→21:22)
--- NOTE | 2024-08-30 09:31 | P.PN_ITS ---
Subjective Subjective Date Patient Seen: 08/30/24 Interval history: Chief complaint: Transverse laceration right volar wrist with infection and tendon involvement from a glass cut in a patient with intravenous drug use of that same forearm History of present illness: 08/25:64 y/o with PMH of drug use and recent right distal forearm / wrist injury, presented with abscess. Not septic. He fell on a glass jar and sustained a 4-1/2 cm transverse laceration to his volar right wrist he also sustained a separate 3 cm laceration at the base of thumb metacarpal. He was noted to have no active flexion of his middle finger he did have active flexion of the ring and small finger. He has a previous index finger partial amputation at the level of the proximal phalanx that is remote injury. He underwent surgery by Dr Paz on 04/22/2024, FDS and FDP repair of the middle finger and repair of the median nerve. He subsequently had abscess developed and had I&D. This is a recurrent abscess. Admitted to medicine with orthopedic surgery evaluation and incision and drainage. Hospital course: 08/26:Operative note excerpt: ...Careful incision was made down through the more ulnar volar longitudinal scar and the abscess edges were excised sharply using the scalpel. On incision there was immediate yellow purulence noted this was cultured. Meticulous dissection was taken through the scar tissue subcutaneously and the abscess cavity did track down to the flexor tendon repair. Meticulous dissection was taken just radial to the incision line in the expected location of the median nerve median nerve was identified and carefully exposed and noted to be intact from the previous repair. Then attention was turned deep area was copious thick scar tissue that was carefully excised with the combination of sharp excision with a scalpel and with the rongeur. The flexor tendon repair for the middle finger was noted to be partially ruptured and there was some loose FiberWire suture this was removed using the rongeur and the tendon debrided sharply with a scalpel. The middle digit was taken through range of motion and there was still partial integrity as there was proximally 45 degree bend at the MP PIP and about 30? at the D IP joint that was able to be demonstrated. Once all visible FiberWire was removed in the abscess debrided it was apparent abscess went down to this level but did not appear to track proximally or distally along the tendon sheaths. At this point the tourniquet was released and hemostasis was achieved... 08/27:Pain is a bit worse today, dilaudid for his R wrist pain. Medication adjusted 08/28: Pain control is satisfactory with hydromorphone wound culture: 08/29: Pain control is satisfactory no fevers or chills 08/30: Patient reports increased pain with flexing and moving fingers asking for adjustments in his pain medication no fevers or chills overnight no swelling in the exposed area of the hand gabapentin 100 mg t.i.d. added and hydromorphone adjusted to 4 mg every 3 hours as needed for pain 1. Methicillin Resis Staph Aureus M.I.C. RX --------- --- * Daptomycin 0.25 S * Vancomycin <=0.5 S * Ciprofloxacin <=0.5 S * Doxycycline <=0.5 S * Erythromycin >=8 R * Gentamicin <=0.5 S * Levofloxacin 0.25 S * Linezolid 2 S * Moxifloxacin <=0.25 S * Oxacillin Ben >=4 R * Rifampin <=0.5 S * Tetracycline >=16 R * Trimethoprim/Sulfamethoxazole <=10 S Review of systems: No fevers or chills No difficulty swallowing No chest pain palpitations wheezing or shortness a breath No nausea vomiting diarrhea constipation Physical exam: No acute distress HEENT unremarkable No labored respirations Abdomen nondistended Neurologic nonfocal Assessment and plan: 1. Recurrent R wrist abscess. * Culture positive for MRSA vancomycin continued ceftriaxone discontinued * Discussed with infectious disease over the phone on 08/26. Requested transfer from the ER but was ultimately admitted overnight anyway. He has limited options for outpatient treatment from here. What may have to happen is wait to discharge until infectious disease provider available for outpatient appointment to give Dalbavancin 1500 mg once weekly if MRSA confirmed. This medication is not available here / is non-formulary. 2. Opiate dependence and withdrawal * started methadone 20 QID with adequate control today and fairly mimimal withdrawal symptoms. Doing well while inpatient. * he likely has significant tolerance for opiates so may need higher dosing for pain control. * Gabapentin 100 mg t.i.d. added 08/30 and hydromorphone adjusted to 4 mg (was receiving this as an outpatient by his orthopedic surgeon) Code: Full DVT: HSQ Dispo: discharge home when able but complex outpatient infectious disease coordination will be needed prior to discharge. Time-Based Coding :: 35 minutes spent with patient and on the chart (including review of chart, obtaining history, exam, reviewing outside data, placing orders, documenting exam and treatment plan, and counseling patient) Exam Vital Signs (past 8 hours): - 08/30/24 06:00 08/30/24 07:00 Temperature 98.2 F Pulse Rate 69 Respiratory Rate 16 Blood Pressure 124/69 Pulse Oximetry 98 98 Oxygen Delivery Method Room Air Oxygen Flow Rate 0 Oxygen Delivery Method Room Air Oxygen Flow Rate 0 Objective Labs 08/30/24 09:55 08/29/24 08:42 Labs: Laboratory Results - last 24 hr 08/29/24 08/29/24 08:42 11:10 Sodium 140 Potassium 3.9 Chloride 106 Carbon Dioxide 22 BUN 18 Creatinine 0.72 Estimated GFR > 60 BUN/Creatinine Ratio 25.0 H Glucose 153 H Calcium 9.4 Magnesium 2.0 Total Bilirubin 0.4 AST 30 ALT 22 Alkaline Phosphatase 78 Total Protein 7.5 Albumin 4.1 Globulin 3.4 Albumin/Globulin Ratio 1.2 Vancomycin Trough 14.7 PFSH Medical History Current recreational drug use Amputation of finger, right Surgical History History of orthopedic surgery (04/22/24) Social History household members: none Smoking Status: Current every day smoker alcohol intake: current Assessment & Plan Time-Based Coding :: [TOTAL MINUTES] spent with patient and on the chart (including review of chart, obtaining history, exam, reviewing outside data, placing orders, documenting exam and treatment plan, and counseling patient) on [DATE]. Quality VTE Deep Vein Thrombosis/Pulmonary Embolism Present on Admission: No
[2024-08-30 10:02] LABS: Add Manual Diff / Slide Review NO; Basophils Absolute Auto 100 /uL (0-100); Basophils Percent Auto 1.2 % (0-2); Eosinophils Absolute Auto 200 /uL (0-450); Eosinophils Percent Auto 3.4 % (2-4); Hematocrit 40.1 % (41-53); Hemoglobin 13.8 g/dL (13.5-17.5); Lymphocytes Absolute Auto 1500 /uL (1100-4500); Lymphocytes Percent Auto 21.4 % (25-40); Mean Corpuscular HGB Conc 34.5 % (30-36); Mean Corpuscular Hemoglobin 30.5 PG (26-34); Mean Corpuscular Volume 88.6 fL (80-100); Monocytes Absolute Auto 400 /uL (0-900); Monocytes Percent Auto 5.9 % (3-14); Neutrophils Absolute Auto 4800 /uL (1500-7000); Neutrophils Percent Auto 68.1 % (50-75); Platelet Count 232 X10^3/uL (150-400); Red Blood Cell Count 4.52 X10^6/uL (4.5-5.9); Red Cell Distribution Width 13.6 % (11.6-14.8)
[2024-08-30 12:00] VITALS: BP 135/78; PULSE 61; RESP 16; TEMP 36.3; O2SAT 100
[2024-08-30] MEDS: HYDROMORPHONE 2 MG TABLET 4 MG PO ×3 (14:08→21:20)
[2024-08-30] MEDS: GABAPENTIN 100 MG CAPSULE PO ×2 (15:37→21:20)
[2024-08-30 18:00] VITALS: BP 124/73; PULSE 62; RESP 15; TEMP 36.6; O2SAT 99
[2024-08-31] VITALS: BP 119/62; PULSE 62; RESP 20; TEMP 36.6; O2SAT 95
[2024-08-31] MEDS: VANCOMYCIN 1,500 MG/300 ML PIGGYBACK 200 MG IV ×2 (00:48→13:27)
[2024-08-31] MEDS: HYDROMORPHONE 2 MG TABLET 4 MG PO ×3 (02:30→21:31)
[2024-08-31 06:00] VITALS: BP 127/61; PULSE 67; RESP 17; TEMP 36.3; O2SAT 98
--- NOTE | 2024-08-31 06:34 | PC.NURSE ---
entry tech was having difficulty drawing blood from patient, therefore pt didn't get his AM labs.
[2024-08-31 07:00] VITALS: O2SAT 99
[2024-08-31] MEDS: IBUPROFEN 400 MG TABLET 600 MG PO ×2 (07:00→22:27)
[2024-08-31] MEDS: ACETAMINOPHEN 325 MG TABLET 975 MG PO ×2 (07:00→21:20)
--- NOTE | 2024-08-31 07:30 | P.PN_ITS ---
Subjective Subjective Date Patient Seen: 08/31/24 Time Patient Seen: 10:00 Interval history: pod 5 I&D R wrist - deep abscess-- to flexor tendons. cultures MRSA pain controlled soft dressing - may change prn -- f/u ortho clinic *[facility]* in 2 weeks for w/c and suture removal awaiting dispo plan per primary--and awaiting ABx plan-- rec Infectious Disease--this is a recurrent MRSA abscess. pt previously was treated with extended oral course as was not IV abx candidate due to challenging social circumstances--however pt now is amendable to SNF or weekly extended IV abx dosing if Infectious Disease recommends/or can faciliate. Exam Vital Signs (past 8 hours): - 08/31/24 00:00 08/31/24 06:00 Temperature 98 F 97.3 F L Pulse Rate 62 67 Respiratory Rate 20 17 Blood Pressure 119/62 127/61 Pulse Oximetry 95 98 Oxygen Flow Rate 0 0 Oxygen Delivery Method Room Air Oxygen Flow Rate 0 Narrative Exam Narrative: A&O NAD RUE-- dressing changed- reduced swelling/ no erythema today. improved finger and wrist rom-- stable previous index amp. MF ROM with MP flexion to 80, pip 40 and dip 30. unchangeed decreased sensation in Median distribution. Objective Labs 08/30/24 09:55 08/29/24 08:42 Labs: Laboratory Results - last 24 hr 08/30/24 09:55 WBC 7.0 RBC 4.52 Hgb 13.8 Hct 40.1 L MCV 88.6 MCH 30.5 MCHC 34.5 RDW 13.6 Plt Count 232 Neut % (Auto) 68.1 Lymph % (Auto) 21.[address] [place] % (Auto) 5.9 Eos % (Auto) 3.4 Baso % (Auto) 1.2 Neut # (Auto) 4800 Lymph # (Auto) 1500 [place] # (Auto) 400 Eos # (Auto) 200 Baso # (Auto) 100 PFSH Medical History Current recreational drug use Amputation of finger, right Surgical History History of orthopedic surgery (04/22/24) Social History household members: none Smoking Status: Current every day smoker alcohol intake: current Assessment & Plan Post-op Postoperative Procedures: Procedures Operation Date: 08/26/24 10:00 Actual Procedure Side Surgeon p Incision and Drainage right wrist and forearm abscess Right Katia Paz MD Postoperative day: 5 Postoperative status: doing well Postoperative plan: routine post-op care Postoperative plan narrative: dispo per primary when ID- abx -plan available -no further ortho surgery indicated at this time Quality VTE Deep Vein Thrombosis/Pulmonary Embolism Present on Admission: No
[2024-08-31] MEDS: SODIUM CHLORIDE 0.9% FLUSH 10 ML IV ×2 (09:03→21:18)
[2024-08-31] MEDS: METHADONE 10 MG TABLET 20 MG PO ×4 (09:03→21:18)
[2024-08-31] MEDS: GABAPENTIN 100 MG CAPSULE PO ×3 (09:03→21:18)
[2024-08-31] MEDS: ENOXAPARIN 40 MG/0.4 ML SYRINGE SUBCUT (09:03)
--- NOTE | 2024-08-31 10:32 | DIET.CONS ---
Dietary Consultation Note Admission Date: 08/25/2024 21:54 Assessment: 64 y M admitted for management of wrist abscess. PMH of opiate abuse. Dietitian screened for LOS. Recorded PO intakes 85-100%. DFM reviewed for meal composition. No significant weight loss per EMR. BMI normal for age. Ht: 185.42 cm Wt: 72.575 kg BMI: 21.1 UBW: 74.843 kg on 04/22/24 (-3% weight loss in 4 months, non-severe) Last BM: 08/25/24 (08/26/24 09:38) MNA: 13 Donovan Score: 22 Diet: 08/26/24 Dinner General (Regular) Diet Diet Modifications: Food Texture: Level 7 - Regular Liquid Consistency: Level 0 - Thin Nutrition Percent Meal Consumed 100% 08/30/24 18:00 Percent Meal Consumed 100% 08/30/24 13:00 Percent Meal Consumed 100% 08/30/24 09:00 Percent Meal Consumed 100% 08/29/24 18:00 Percent Meal Consumed 85 08/29/24 15:09 Labs: RBC 4.52 X10^6/uL (4.5-5.9) 08/30/24 09:55 Hgb 13.8 g/dL (13.5-17.5) 08/30/24 09:55 Hct 40.1 % (41-53) L 08/30/24 09:55 Creatinine 0.72 mg/dL (0.66-1.25) 08/29/24 08:42 Lactate 1.2 mmol/L (0.7-2.1) 08/25/24 14:05 Nutrition Diagnosis: none at this time Monitoring/Evaluations: will continue to monitor PO intakes Electronically Signed by: Yuly Rosenberg 08/31/24 10:32 Clinical Dietitian [address] [id number]
[2024-08-31 12:00] VITALS: BP 124/64; PULSE 67; RESP 15; TEMP 36.2; O2SAT 100
[2024-08-31 13:12] LABS: Vancomycin Trough 18.8 ug/mL (10-20)
--- NOTE | 2024-08-31 16:27 | CM.DPNOTE ---
DCP note FREELANCE ART DIRECTOR reviewed EMR per provider, consult from outside ID will attempt once/week IV dalbavancin 1500mg for 3weeks. FREELANCE ART DIRECTOR called [facility] to inquire about the plan/if anything is needed from our team for auth. Dr. Rodríguez responded, claiming she needs a formal consult and will attempt to see him in clinic Wed 12pm for 2pm infusion if auth completed. will attempt to get auth from tele consult and not formal note. may ultimately need a formal note. Barrier: INS=[facility]. what is transport plan to appt Wed? Plan continues to develop. CM team will continue to follow closely for DCP coordination ALDA Zavaleta
[2024-08-31 18:00] VITALS: BP 127/77; PULSE 70; RESP 16; TEMP 36.4; O2SAT 99
--- NOTE | 2024-08-31 18:52 | PC.NURSE ---
lab draw 1840 lab upstairs to draw pt's CBC that was not drawn this AM. Explained purpose of lab draw to pt, pt raised voice and agitated stating will not allow blood draw. Pt reassured it is his right to refuse blood draw. Refused at this time.
[2024-09-01] VITALS: BP 113/68; PULSE 62; RESP 16; TEMP 36.8; O2SAT 99
--- NOTE | 2024-09-01 00:38 | PC.NURSE ---
Patient is alert and oriented. Breath sounds CTA with RA sat of 99%. HRR. Denied nausea. BT present and abdomen is soft; reports having had BM 2 days ago. Is voiding without difficulty and denied any dysuria. Is independent with mobility in room. Dressing to right wrist is CDI and area not observed at time of assessment as patient states MD is doing dressing changes. Has healing burn on posterior right 3rd finger and states he has no sensation in that finger. Also reports numbness in pads of fingers anteriorly. Has good radial pulse. Declines use of SCD's so reminded to ankle wave when awake. Is receiving scheduled Tylenol and Ibuprofen for pain control but also requested Dilaudid at 2131 for 7/10 right wrist pain. On isolation for MRSA in wound. Fall risk score is moderate; bed alarm is not currently in use.
[2024-09-01] MEDS: VANCOMYCIN 1,250 MG/250 ML PIGGYBACK 200 MG IV ×2 (00:57→12:56)
[2024-09-01] MEDS: SODIUM CHLORIDE 0.9% FLUSH 10 ML IV ×3 (00:58→20:31)
[2024-09-01 04:56] LABS: Add Manual Diff / Slide Review NO; Basophils Absolute Auto 100 /uL (0-100); Basophils Percent Auto 0.9 % (0-2); Eosinophils Absolute Auto 500 /uL (0-450); Eosinophils Percent Auto 6.8 % (2-4); Hematocrit 40.5 % (41-53); Hemoglobin 13.6 g/dL (13.5-17.5); Lymphocytes Absolute Auto 2400 /uL (1100-4500); Lymphocytes Percent Auto 36.3 % (25-40); Mean Corpuscular HGB Conc 33.7 % (30-36); Mean Corpuscular Hemoglobin 30.1 PG (26-34); Mean Corpuscular Volume 89.4 fL (80-100); Monocytes Absolute Auto 500 /uL (0-900); Neutrophils Absolute Auto 3300 /uL (1500-7000); Platelet Count 231 X10^3/uL (150-400); Red Blood Cell Count 4.54 X10^6/uL (4.5-5.9); Red Cell Distribution Width 13.7 % (11.6-14.8); White Blood Cell Count 6.7 X10^3/uL (4.5-11.0)
[2024-09-01] MEDS: ACETAMINOPHEN 325 MG TABLET 975 MG PO ×3 (05:25→20:30)
[2024-09-01] MEDS: IBUPROFEN 400 MG TABLET 600 MG PO ×3 (05:26→22:15)
[2024-09-01 06:00] VITALS: BP 106/68; PULSE 60; RESP 14; TEMP 36.5; O2SAT 98
[2024-09-01 07:00] VITALS: O2SAT 99
[2024-09-01] MEDS: ENOXAPARIN 40 MG/0.4 ML SYRINGE SUBCUT (08:56)
[2024-09-01] MEDS: METHADONE 10 MG TABLET 20 MG PO ×4 (08:56→20:31)
[2024-09-01] MEDS: GABAPENTIN 100 MG CAPSULE PO ×3 (08:56→20:31)
[2024-09-01 12:00] VITALS: BP 121/73; PULSE 70; RESP 16; TEMP 36.6; O2SAT 99
--- NOTE | 2024-09-01 12:57 | CM.DPNOTE ---
Addendum entered by ALDA Zavaleta 09/01/24 15:20: EDUCATIONAL THERAPIST spoke with Dr. Rodríguez, confirmed auth for pt tomorrow. need CMP. appt time 2:30pm for 3pm infusion at the main hosptial, same building as PT/sleep. appt to end at 4:30pm. EDUCATIONAL THERAPIST updated provider. will put in order for CMP. EDUCATIONAL THERAPIST updated RN EDUCATIONAL THERAPIST updated pt in room. agreeable to plan. excited to dc tomorrow. PLAN dc tomorrow around 1330 for [address] Pittman and 1500 infusion. will need medicaid transport. will continue to follow for DCP coordination SL Original Note: DCP note EDUCATIONAL THERAPIST reviewed EMR per provider in morning rounds, pt needs last dose of vanco approx 12 hrs before next infusion. per pharmacy pt getting infusion at appropriate time. EDUCATIONAL THERAPIST lvm with [facility] to inquire about the status of the auth. no response as of 1400. EDUCATIONAL THERAPIST met with pt in room, reviewed current plan. pt in agreement. hopeful to dc tomorrow to make 12pm appt for 2pm infusion. confirms transport benefits with medicaid. report need transport assistance. denies other CM/DCP needs at this time EDUCATIONAL THERAPIST spoke with Medicaid transport. confirmed pt has transport benefits. confirm they can take pt to and from appt tomorrow just need the information completed on form. P: hopeful to dc tomorrow for f/u with [facility] for weekly infusion x3 weeks. pending auth. will need medicaid transport. CM team will continue to follow closely for DCP coordination ALDA Zavaleta
--- NOTE | 2024-09-01 17:01 | P.DS_ITS ---
History of Present Illness History of Present Illness Date Patient Seen: 09/01/24 Chief complaint: infection right hand Narrative: Chief complaint: Transverse laceration right volar wrist with infection and tendon involvement from a glass cut in a patient with intravenous drug use of that same forearm History of present illness: 08/25:64 y/o with PMH of drug use and recent right distal forearm / wrist injury, presented with abscess. Not septic. He fell on a glass jar and sustained a 4-1/2 cm transverse laceration to his volar right wrist he also sustained a separate 3 cm laceration at the base of thumb metacarpal. He was noted to have no active flexion of his middle finger he did have active flexion of the ring and small finger. He has a previous index finger partial amputation at the level of the proximal phalanx that is remote injury. He underwent surgery by Dr Paz on 04/22/2024, FDS and FDP repair of the middle finger and repair of the median nerve. He subsequently had abscess developed and had I&D. This is a recurrent abscess. Admitted to medicine with orthopedic surgery evaluation and incision and drainage. Hospital course: 08/26:Operative note excerpt: ...Careful incision was made down through the more ulnar volar longitudinal scar and the abscess edges were excised sharply using the scalpel. On incision there was immediate yellow purulence noted this was cultured. Meticulous dissection was taken through the scar tissue subcutaneously and the abscess cavity did track down to the flexor tendon repair. Meticulous dissection was taken just radial to the incision line in the expected location of the median nerve median nerve was identified and carefully exposed and noted to be intact from the previous repair. Then attention was turned deep area was copious thick scar tissue that was carefully excised with the combination of sharp excision with a scalpel and with the rongeur. The flexor tendon repair for the middle finger was noted to be partially ruptured and there was some loose FiberWire suture this was removed using the rongeur and the tendon debrided sharply with a scalpel. The middle digit was taken through range of motion and there was still partial integrity as there was proximally 45 degree bend at the MP PIP and about 30? at the D IP joint that was able to be demonstrated. Once all visible FiberWire was removed in the abscess debrided it was apparent abscess went down to this level but did not appear to track proximally or distally along the tendon sheaths. At this point the tourniquet was released and hemostasis was achieved... 08/27:Pain is a bit worse today, dilaudid for his R wrist pain. Medication adjusted 08/28: Pain control is satisfactory with hydromorphone wound culture: 08/29: Pain control is satisfactory no fevers or chills 08/30: Patient reports increased pain with flexing and moving fingers asking for adjustments in his pain medication no fevers or chills overnight no swelling in the exposed area of the hand gabapentin 100 mg t.i.d. added and hydromorphone adjusted to 4 mg every 3 hours as needed for pain 08/31: Pain control is satisfactory no fever or chills continuing treatment making arrangements for outpatient dalbavancin 09/01: Prior approval obtained for outpatient double Vantin 1st dose will be at 2:00 p.m. 09/02 patient will be discharged in the morning at 6:00 a.m. 1. Methicillin Resis Staph Aureus M.I.C. RX --------- --- * Daptomycin 0.25 S * Vancomycin <=0.5 S * Ciprofloxacin <=0.5 S * Doxycycline <=0.5 S * Erythromycin >=8 R * Gentamicin <=0.5 S * Levofloxacin 0.25 S * Linezolid 2 S * Moxifloxacin <=0.25 S * Oxacillin Ben >=4 R * Rifampin <=0.5 S * Tetracycline >=16 R * Trimethoprim/Sulfamethoxazole <=10 S Review of systems: No fevers or chills No difficulty swallowing No chest pain palpitations wheezing or shortness a breath No nausea vomiting diarrhea constipation Physical exam: No acute distress HEENT unremarkable No labored respirations Abdomen nondistended Neurologic nonfocal Assessment and plan: 1. Recurrent R wrist abscess. * Culture positive for MRSA vancomycin continued ceftriaxone discontinued * Discussed with infectious disease over the phone on 08/26. Requested transfer from the ER but was ultimately admitted overnight anyway. He has limited options for outpatient treatment from here. What may have to happen is wait to discharge until infectious disease provider available for outpatient appointment to give Dalbavancin 1500 mg once weekly if MRSA confirmed. * First dose at 2:00 p.m. 09/02 2. Opiate dependence and withdrawal * started methadone 20 QID with adequate control today and fairly mimimal withdrawal symptoms. Doing well while inpatient. * he likely has significant tolerance for opiates so may need higher dosing for pain control. * Gabapentin 100 mg t.i.d. added 08/30 and hydromorphone adjusted to 4 mg (was receiving this as an outpatient by his orthopedic surgeon) Code: Full DVT: HSQ Dispo: discharge home 6:00 a.m. 09/02 Time-Based Coding :: 35 minutes spent with patient and on the chart (including review of chart, obtaining history, exam, reviewing outside data, placing orders, documenting exam and treatment plan, and counseling patient) Discharge Providers Provider Date of admission: 08/25/24 21:54 Discharge Date: 09/02/24 Discharge provider: Daron Meier MD Exam Vital Signs (past 8 hours): - 09/01/24 12:00 Temperature 97.8 F Pulse Rate 70 Respiratory Rate 16 Blood Pressure 121/73 Pulse Oximetry 99 Oxygen Flow Rate 0 Oxygen Delivery Method Room Air Oxygen Flow Rate 0 Objective Labs 09/01/24 04:20 08/29/24 08:42 Labs: Laboratory Results - last 24 hr 09/01/24 04:20 WBC 6.7 RBC 4.54 Hgb 13.6 Hct 40.5 L MCV 89.4 MCH 30.1 MCHC 33.7 RDW 13.7 Plt Count 231 Neut % (Auto) 49.0 L Lymph % (Auto) 36.3 [place] % (Auto) 7.0 Eos % (Auto) 6.8 H Baso % (Auto) 0.9 Neut # (Auto) 3300 Lymph # (Auto) 2400 [place] # (Auto) 500 Eos # (Auto) 500 H Baso # (Auto) 100 PFSH Medical History Current recreational drug use Amputation of finger, right Surgical History History of orthopedic surgery (04/22/24) Social History household members: none Smoking Status: Current every day smoker alcohol intake: current Discharge Plan Discharge Plan Patient Disposition: Home Discharge orders & Medications Prescriptions: New acetaminophen 325 mg Tablet 975 mg PO Q8H Qty: 100 0RF methadone 10 mg Tablet 20 mg PO QID Qty: 30 0RF ibuprofen 400 mg Tablet 600 mg PO Q8HR Qty: 90 0RF gabapentin 100 mg Capsule 100 mg PO TID Qty: 90 0RF hydromorphone 2 mg Tablet 4 mg PO Q3H PRN (Reason: Pain, Severe (7-10)) Qty: 12 0RF dalbavancin 500 mg solution 1,500 mg IV WEEKLY 21 Days Qty: 1 0RF Visit Report/Discharge Packet Stand Alone Forms: Patient Portal/API Quality VTE Deep Vein Thrombosis/Pulmonary Embolism Present on Admission: No
--- NOTE | 2024-09-01 17:04 | P.PN_ITS ---
Subjective Subjective Date Patient Seen: 08/31/24 Interval history: Chief complaint: Transverse laceration right volar wrist with infection and tendon involvement from a glass cut in a patient with intravenous drug use of that same forearm History of present illness: 08/25:64 y/o with PMH of drug use and recent right distal forearm / wrist injury, presented with abscess. Not septic. He fell on a glass jar and sustained a 4-1/2 cm transverse laceration to his volar right wrist he also sustained a separate 3 cm laceration at the base of thumb metacarpal. He was noted to have no active flexion of his middle finger he did have active flexion of the ring and small finger. He has a previous index finger partial amputation at the level of the proximal phalanx that is remote injury. He underwent surgery by Dr Paz on 04/22/2024, FDS and FDP repair of the middle finger and repair of the median nerve. He subsequently had abscess developed and had I&D. This is a recurrent abscess. Admitted to medicine with orthopedic surgery evaluation and incision and drainage. Hospital course: 08/26:Operative note excerpt: ...Careful incision was made down through the more ulnar volar longitudinal scar and the abscess edges were excised sharply using the scalpel. On incision there was immediate yellow purulence noted this was cultured. Meticulous dissection was taken through the scar tissue subcutaneously and the abscess cavity did track down to the flexor tendon repair. Meticulous dissection was taken just radial to the incision line in the expected location of the median nerve median nerve was identified and carefully exposed and noted to be intact from the previous repair. Then attention was turned deep area was copious thick scar tissue that was carefully excised with the combination of sharp excision with a scalpel and with the rongeur. The flexor tendon repair for the middle finger was noted to be partially ruptured and there was some loose FiberWire suture this was removed using the rongeur and the tendon debrided sharply with a scalpel. The middle digit was taken through range of motion and there was still partial integrity as there was proximally 45 degree bend at the MP PIP and about 30? at the D IP joint that was able to be demonstrated. Once all visible FiberWire was removed in the abscess debrided it was apparent abscess went down to this level but did not appear to track proximally or distally along the tendon sheaths. At this point the tourniquet was released and hemostasis was achieved... 08/27:Pain is a bit worse today, dilaudid for his R wrist pain. Medication adjusted 08/28: Pain control is satisfactory with hydromorphone wound culture: 08/29: Pain control is satisfactory no fevers or chills 08/30: Patient reports increased pain with flexing and moving fingers asking for adjustments in his pain medication no fevers or chills overnight no swelling in the exposed area of the hand gabapentin 100 mg t.i.d. added and hydromorphone adjusted to 4 mg every 3 hours as needed for pain 08/31: Pain control is satisfactory no fever or chills continuing treatment making arrangements for outpatient dalbavancin 1. Methicillin Resis Staph Aureus M.I.C. RX --------- --- * Daptomycin 0.25 S * Vancomycin <=0.5 S * Ciprofloxacin <=0.5 S * Doxycycline <=0.5 S * Erythromycin >=8 R * Gentamicin <=0.5 S * Levofloxacin 0.25 S * Linezolid 2 S * Moxifloxacin <=0.25 S * Oxacillin Ben >=4 R * Rifampin <=0.5 S * Tetracycline >=16 R * Trimethoprim/Sulfamethoxazole <=10 S Review of systems: No fevers or chills No difficulty swallowing No chest pain palpitations wheezing or shortness a breath No nausea vomiting diarrhea constipation Physical exam: No acute distress HEENT unremarkable No labored respirations Abdomen nondistended Neurologic nonfocal Assessment and plan: 1. Recurrent R wrist abscess. * Culture positive for MRSA vancomycin continued ceftriaxone discontinued * Discussed with infectious disease over the phone on 08/26. Requested transfer from the ER but was ultimately admitted overnight anyway. He has limited options for outpatient treatment from here. What may have to happen is wait to discharge until infectious disease provider available for outpatient appointment to give Dalbavancin 1500 mg once weekly if MRSA confirmed. * First dose at 2:00 p.m. 09/02 2. Opiate dependence and withdrawal * started methadone 20 QID with adequate control today and fairly mimimal withdrawal symptoms. Doing well while inpatient. * he likely has significant tolerance for opiates so may need higher dosing for pain control. * Gabapentin 100 mg t.i.d. added 08/30 and hydromorphone adjusted to 4 mg (was receiving this as an outpatient by his orthopedic surgeon) Code: Full DVT: HSQ Dispo: discharge home 6:00 a.m. 09/02 Time-Based Coding :: 35 minutes spent with patient and on the chart (including review of chart, obtaining history, exam, reviewing outside data, placing orders, documenting exam and treatment plan, and counseling patient) Exam Vital Signs (past 8 hours): - 09/01/24 12:00 Temperature 97.8 F Pulse Rate 70 Respiratory Rate 16 Blood Pressure 121/73 Pulse Oximetry 99 Oxygen Flow Rate 0 Oxygen Delivery Method Room Air Oxygen Flow Rate 0 Objective Labs 09/01/24 04:20 08/29/24 08:42 Labs: Laboratory Results - last 24 hr 09/01/24 04:20 WBC 6.7 RBC 4.54 Hgb 13.6 Hct 40.5 L MCV 89.4 MCH 30.1 MCHC 33.7 RDW 13.7 Plt Count 231 Neut % (Auto) 49.0 L Lymph % (Auto) 36.3 [place] % (Auto) 7.0 Eos % (Auto) 6.8 H Baso % (Auto) 0.9 Neut # (Auto) 3300 Lymph # (Auto) 2400 [place] # (Auto) 500 Eos # (Auto) 500 H Baso # (Auto) 100 PFSH Medical History Current recreational drug use Amputation of finger, right Surgical History History of orthopedic surgery (04/22/24) Social History household members: none Smoking Status: Current every day smoker alcohol intake: current Assessment & Plan Time-Based Coding :: [TOTAL MINUTES] spent with patient and on the chart (including review of chart, obtaining history, exam, reviewing outside data, placing orders, documenting exam and treatment plan, and counseling patient) on [DATE]. Quality VTE Deep Vein Thrombosis/Pulmonary Embolism Present on Admission: No
[2024-09-01 17:15] LABS: Alanine Aminotransferase 20 IU/L (<50); Albumin 3.9 g/dL (3.5-5.0); Albumin Globulin Ratio 1.4 (1.0-2.8); Alkaline Phosphatase 56 U/L (38-126); Aspartate Aminotransferase 27 IU/L (17-59); BUN Creatinine Ratio 24.1 (6-22); Bilirubin Total 0.2 mg/dL (0.2-1.3); Blood Urea Nitrogen 27 mg/dL (9-20); Carbon Dioxide 22 mmol/L (22-32); Chloride 108 mmol/L (98-107); Estimated Glomerular Filt Rate > 60 mL/min (>60); Globulin 2.8 g/dL (1.7-4.1); Glucose 103 mg/dL (70-99); HEMOLYSIS < 15 (0-50); Potassium 4.2 mmol/L (3.4-5.1); Sodium 139 mmol/L (137-145); Total Protein 6.7 g/dL (6.3-8.2)
[2024-09-01 18:00] VITALS: BP 122/69; PULSE 77; RESP 16; TEMP 36.6; O2SAT 99
[2024-09-01 19:00] VITALS: O2SAT 96
[2024-09-01] MEDS: HYDROMORPHONE 2 MG TABLET 4 MG PO (20:34)
[2024-09-02] VITALS: BP 91/58; PULSE 67; RESP 16; TEMP 36.8; O2SAT 100
[2024-09-02] MEDS: VANCOMYCIN 1,250 MG/250 ML PIGGYBACK 200 MG IV (01:01)
[2024-09-02] MEDS: HYDROMORPHONE 2 MG TABLET 4 MG PO ×2 (04:02→13:05)
[2024-09-02 05:07] LABS: Add Manual Diff / Slide Review NO; Basophils Absolute Auto 100 /uL (0-100); Basophils Percent Auto 1.2 % (0-2); Eosinophils Absolute Auto 400 /uL (0-450); Eosinophils Percent Auto 7.2 % (2-4); Hematocrit 38.7 % (41-53); Hemoglobin 12.9 g/dL (13.5-17.5); Lymphocytes Absolute Auto 2200 /uL (1100-4500); Lymphocytes Percent Auto 35.4 % (25-40); Mean Corpuscular HGB Conc 33.4 % (30-36); Mean Corpuscular Volume 89.7 fL (80-100); Monocytes Absolute Auto 500 /uL (0-900); Monocytes Percent Auto 8.6 % (3-14); Neutrophils Absolute Auto 3000 /uL (1500-7000); Neutrophils Percent Auto 47.6 % (50-75); Platelet Count 223 X10^3/uL (150-400); Red Blood Cell Count 4.31 X10^6/uL (4.5-5.9); Red Cell Distribution Width 13.4 % (11.6-14.8); White Blood Cell Count 6.2 X10^3/uL (4.5-11.0)
[2024-09-02] MEDS: ACETAMINOPHEN 325 MG TABLET 975 MG PO ×2 (05:46→13:03)
[2024-09-02] MEDS: IBUPROFEN 400 MG TABLET 600 MG PO (05:46)
[2024-09-02 06:00] VITALS: BP 85/46; PULSE 59; RESP 18; TEMP 36.8; O2SAT 97
[2024-09-02 07:00] VITALS: BP 103/57; PULSE 60; RESP 16; TEMP 36.7; O2SAT 98
[2024-09-02] MEDS: METHADONE 10 MG TABLET 20 MG PO ×2 (09:08→13:03)
[2024-09-02] MEDS: GABAPENTIN 100 MG CAPSULE PO (09:08)
[2024-09-02] MEDS: SODIUM CHLORIDE 0.9% FLUSH 10 ML IV (09:08)
[2024-09-02] MEDS: ENOXAPARIN 40 MG/0.4 ML SYRINGE SUBCUT (09:08)
[2024-09-02 13:08] LABS: Vancomycin Trough 20.3 ug/mL (10-20)
--- NOTE | 2024-09-02 13:29 | PC.NURSE ---
D/c packet reviewed with pt at bedside. Discussed new prescriptions. Pt confirmed he will call Dr. Paz to schedule a post op appointment. IV removed. Pt exited via w/c with NATHAN.
--- NOTE | 2024-09-02 13:32 | CM.DPNOTE ---
DCP note SAILING INSTRUCTOR reviewed EMR SAILING INSTRUCTOR spoke with Karli from Dr. Rodríguez's office. confirmed plan for today. pt appt at 230pm. with infusion at 3pm. meet at infusion center. SAILING INSTRUCTOR spoke with tolu from [facility] transport. [facility] will pick him up at 1330 at the main entrance. take him to appt. pick him up at 1630, take him to pharmacy in [facility], and then transport home. SAILING INSTRUCTOR wrote all of this down on paper for pt. met with pt in room. confirmed agreement and preference for this plan. denies other CM/DCP needs at this time. P: dc home today with OP f/u with Dr. Rodríguez for once weekly infusion. will continue to follow as needed ALDA Zavaleta
--- NOTE | 2024-09-02 18:35 | P.DS_ITS ---
History of Present Illness History of Present Illness Date Patient Seen: 09/02/24 Time Patient Seen: 09:30 Chief complaint: infection right hand Narrative: Per admitting provider, 64 y/o with PMH of drug use and recent right distal forearm / wrist injury, presented with abscess. Not septic. He fell on a glass jar and sustained a 4-1/2 cm transverse laceration to his volar right wrist he also sustained a separate 3 cm laceration at the base of thumb metacarpal. He was noted to have no active flexion of his middle finger he did have active flexion of the ring and small finger. He has a previous index finger partial amputation at the level of the proximal phalanx that is remote injury. He underwent surgery by Dr Paz on 04/22/2024, FDS and FDP repair of the middle finger and repair of the median nerve. He subsequently had abscess developed and had I&D. This is a requernt abscess. Admitted to medicine with orthopedic surgery evaluation and incision and drainage. Discharge Providers Provider Date of admission: 08/25/24 21:54 Discharge Date: 09/02/24 Discharge provider: Minesh Pedroza DO Summary Hospital Course Discharge Diagnosis: 1. Recurrent R wrist abscess. 2. Opiate dependence and withdrawal Hospital Course: This is a 64-year-old male with a past medical history of opiate dependence and withdrawal who was admitted with a recurrent right wrist abscess. Initially was recommended for transfer but per Infectious Disease provider he did not require an inpatient evaluation. He underwent surgery with Orthopedics who performed an incision and drainage, from which cultures grew an MRSA. Blood cultures were negative. Given his substance use he had limited options upon discharge for antibiotic therapies, but plan is currently to follow-up with Infectious Disease provider as an outpatient on the day of discharge for dalbavancin infusions. This took some time to arrange and he was finally able to get an appointment on 09/02 for Dalbavancin at which time he was discharged after receiving vancomycin here in the hospital. He will also follow-up with Orthopedic surgery for suture removal in 2 weeks. For pain control here he was continued on ibuprofen and Tylenol scheduled, likely resulting in a mildly increased creatinine prior to discharge. For his substance use, he was started on and maintained on methadone 20 mg 4 times a day with adequate control. He was also started on gabapentin and hydromorphone with adequate control of his pain. He was given a few pills of hydromorphone on discharge along with a prescription for gabapentin, but should follow-up with a methadone clinic after discharge for further treatment of opiate dependence. Time Spent with Patient Time spent: Greater than 30 minutes Exam Vital Signs (past 8 hours): Oxygen Delivery Method Room Air Oxygen Flow Rate 0 Narrative Exam Narrative: Gen: disheveled male, WDWN, no acute distress CV: RRR no m/r/g Pulm: CTA b/l Ext: No edema Objective Labs 09/02/24 04:47 09/01/24 16:50 Labs: Laboratory Results - last 24 hr 08/26/24 09/02/24 09/02/24 11:20 04:47 12:34 WBC 6.2 RBC 4.31 L Hgb 12.9 L Hct 38.7 L MCV 89.7 MCH 30.0 MCHC 33.4 RDW 13.4 Plt Count 223 Neut % (Auto) 47.6 L Lymph % (Auto) 35.4 [place] % (Auto) 8.6 Eos % (Auto) 7.2 H Baso % (Auto) 1.2 Neut # (Auto) 3000 Lymph # (Auto) 2200 [place] # (Auto) 500 Eos # (Auto) 400 Baso # (Auto) 100 Vancomycin Trough 20.3 H* Bacterial Detect (PCR) See scanned report [facility] Medical History Current recreational drug use Amputation of finger, right Surgical History History of orthopedic surgery (04/22/24) Social History household members: none Smoking Status: Current every day smoker alcohol intake: current Discharge Plan Discharge Plan Patient Disposition: Home Provider Discharge Comment: You were admitted to the hospital with a wrist abscess, recurrent. Follow up with Dr. Rodríguez today at 2:30 PM for Dalbavacnin infusion for antibiotic treatment. Discharge orders & Medications Prescriptions: New acetaminophen 325 mg Tablet 975 mg PO Q8H Qty: 100 0RF methadone 10 mg Tablet 20 mg PO QID Qty: 30 0RF ibuprofen 400 mg Tablet 600 mg PO Q8HR Qty: 90 0RF gabapentin 100 mg Capsule 100 mg PO TID Qty: 90 0RF hydromorphone 2 mg Tablet 4 mg PO Q3H PRN (Reason: Pain, Severe (7-10)) Qty: 12 0RF dalbavancin 500 mg solution 1,500 mg IV WEEKLY 21 Days Qty: 1 0RF gabapentin 100 mg capsule 100 mg PO BID 30 Days Qty: 60 0RF hydromorphone 4 mg tablet 4 mg PO Q6H PRN (Reason: pain) 7 Days Qty: 20 0RF Diet/Activity/Treatments Diet: Diet as Tolerated and Regular Activity: As tolerated, no restrictions Visit Report/Discharge Packet Stand Alone Forms: Patient Portal/API Quality VTE Deep Vein Thrombosis/Pulmonary Embolism Present on Admission: No
== END 2024-09-02 13:28 | disposition home or self-care (01) | DRG 317 ==
LOC: ED 19:40 → AC 21:54
PROVIDERS: Internal Medicine; Orthopaedic Surgery Foot and Ankle Surgery; Student in an Organized Health Care Education/Training Program; Admitting Provider Internal Medicine; Emergency Provider Emergency Medicine; Referring Provider Emergency Medicine; Visit Provider Internal Medicine
PROC: 0LB50ZZ Excision of Right Lower Arm and Wrist Tendon, Open Approach (ICD-10-PCS; principal; 2024-08-26 10:00)
DX: M65.031 Abscess of tendon sheath, right forearm (principal); F11.23 Opioid dependence with withdrawal; L02.413 Cutaneous abscess of right upper limb; F17.200 Nicotine dependence, unspecified, uncomplicated; S66.122D Laceration of flexor muscle, fascia and tendon of right middle finger at wrist and hand level, subsequent encounter; S66.120D Laceration of flexor muscle, fascia and tendon of right index finger at wrist and hand level, subsequent encounter; S66.124D Laceration of flexor muscle, fascia and tendon of right ring finger at wrist and hand level, subsequent encounter; S64.11XD Injury of median nerve at wrist and hand level of right arm, subsequent encounter; B95.62 Methicillin resistant Staphylococcus aureus infection as the cause of diseases classified elsewhere; W25.XXXD Contact with sharp glass, subsequent encounter; Z89.021 Acquired absence of right finger(s)
CPT/HCPCS: 36415; 73201; 80053; 80202; 83605; 83735; 84145; 85025; 85651; 86140; 87040; 87070; 87075; 87077; 87147; 87186; 87205; 87801; 96365; 96367; 99284; J0696; J1100; J1171; J1650; J2405; J2704; J3010; J3370; Q9967

== ENCOUNTER 2025-02-11 12:25 | Emergency (ER) | payer MEDICAID, OTHER, SELFPAY ==
[2025-02-11] VITALS (10 sets, daily range): BP systolic 133–158; BP diastolic 84–91; PULSE 68–89; RESP 16–24; TEMP 37; O2SAT 93–100; BMI 21.1
--- NOTE | 2025-02-11 13:03 | DI.RAD.S_ITS ---
PROCEDURE: XR CHEST 1V INDICATIONS: chest pain TECHNIQUE: One view of the chest was acquired. COMPARISON: [facility], , XR CHEST FOR PICC 1V, 05/16/2024, 17:15. FINDINGS: Surgical changes and devices: None. Lungs and pleura: Lungs are clear, yet hyperexpanded. No pleural effusions or pneumothorax. Mediastinum: Mediastinal contours appear normal. Heart size is normal. Bones and chest wall: No suspicious bony lesions. Age-appropriate bony degenerative changes are seen. Overlying soft tissues appear unremarkable. IMPRESSION: Hyperexpanded lungs, without an acute cardiopulmonary process identified. Dictated by: Néstor Orr M.D. on 02/11/2025 at 12:36 Approved by: Néstor Orr M.D. on 02/11/2025 at 12:37
--- NOTE | 2025-02-11 13:05 | PC.NURSE ---
phonecall from néstor at poison control recommended full workup with ekg, labs, uds, rinsing mouth and call back with abnormals but treat sx with supportive care
[2025-02-11 13:26] LABS: Add Manual Diff / Slide Review NO; Hematocrit 42.9 % (41-53); Hemoglobin 14.8 g/dL (13.5-17.5); Lymphocytes Absolute Auto 1100 /uL (1100-4500); Mean Corpuscular HGB Conc 34.5 % (30-36); Mean Corpuscular Hemoglobin 30.6 PG (26-34); Mean Corpuscular Volume 88.6 fL (80-100); Platelet Count 291 X10^3/uL (150-400)
[2025-02-11] MEDS: LIDOCAINE VISCOUS 2% 15 ML SOLUTION PO (13:30)
--- NOTE | 2025-02-11 13:34 | EKG_ITS ---
[address] [address] [address] [address] Test Date: 2025-02-11 Pat Name: Mike Lam Department: [facility] Room: Gender: Male Supervising Nurse: : 1960 Requested By: Order Number: [id number] Reading MD: Olegario Maddox Measurements Intervals [place] Rate: 80 P: 78 GA: 142 QRS: 71 QRSD: 114 T: 76 QT: 386 QTc: 445 Interpretive Statements Normal sinus rhythm Incomplete right bundle branch block Electronically Signed On 02-11-2025 17:28:16 PST by Olegario Maddox
[2025-02-11 13:36] LABS: Alanine Aminotransferase 18 IU/L (<50); Albumin 4.9 g/dL (3.5-5.0); Albumin Globulin Ratio 1.2 (1.0-2.8); Alkaline Phosphatase 92 U/L (38-126); Blood Urea Nitrogen 12 mg/dL (9-20); Calcium 9.9 mg/dL (8.4-10.2); Carbon Dioxide 24 mmol/L (22-32); Chloride 104 mmol/L (98-107); Estimated Glomerular Filt Rate > 60 mL/min (>60); Ethanol (ETOH) < 10 mg/dL (<10); Globulin 4.2 g/dL (1.7-4.1); Glucose 110 mg/dL (70-99); HEMOLYSIS 29 (0-50); Potassium 4.0 mmol/L (3.4-5.1); Sodium 140 mmol/L (137-145); Total Protein 9.1 g/dL (6.3-8.2)
[2025-02-11 13:48] LABS: Troponin I < 0.012 ng/mL (0.01-0.034)
[2025-02-11 13:51] LABS: Ur Specific Gravity Normal (Normal); Urine Tetrahydrocannabinol Positive (Negative)
[2025-02-11 13:52] LABS: UR Morphine/Opiate cutoff 300 Negative (Negative); Urine MDMA Negative (Negative); Urine Methamphetamines Positive (Negative); Urine Tricyclic Antidepressant Negative (Negative)
--- NOTE | 2025-02-11 14:18 | PC.NURSE ---
no nausea and vomiting since arrival pt endorsing abd pain near diaphragm
[2025-02-11] MEDS: ONDANSETRON 4 MG/2 ML INJ IV (14:46)
--- NOTE | 2025-02-11 15:54 | ED_ITS ---
HPI - Nausea/Vomiting/Diarrhea General Chief complaint: Nausea/Vomiting/Diarrhea Stated complaint: Took pill, vomiting Time Seen by Provider: 02/11/25 12:32 Source: patient Mode of arrival: EMS Related Data Previous Rx's ?Medication ?Instructions ?Recorded acetaminophen 325 mg tablet 975 mg (3 x 325 mg) PO Q8H #100 09/01/24 tabs gabapentin 100 mg capsule 100 mg PO TID #90 caps 09/01 hydromorphone 2 mg tablet 4 mg (2 x 2 mg) PO Q3H PRN P ain, 09/01/24 Severe (7-10) #12 tabs ibuprofen 400 mg tablet 600 mg (1.5 x 400 mg) PO Q8H R #90 09/01/24 tabs methadone 10 mg tablet 20 mg (2 x 10 mg) PO QID #30 tabs 09/01/24 Allergies Allergy/AdvReac Type Severity Reaction Status Date / Time No Known Drug Allergies Allergy Verified 02/11/25 12:37 Patient History Medical History Current recreational drug use Amputation of finger, right Surgical History History of orthopedic surgery (04/22/24) Social History household members: none alcohol intake: current tobacco type: cigarettes and vaping alcohol intake frequency: holidays/special occasions only Exam Initial Vital Signs Initial Vital Signs: Vital Signs Temperature 98.6 F 02/11/25 12:38 Pulse Rate 86 02/11/25 12:38 Respiratory Rate 16 02/11/25 12:38 Blood Pressure 158/84 H 02/11/25 12:38 Pulse Oximetry 97 02/11/25 12:38 Oxygen Delivery Method Room Air 02/11/25 12:38 Course Orders Ordered: ED Orders 02/11/25 13:03 CXR [XR chest 1V] Stat 02/11/25 13:04 EKG-12 Lead Stat 02/11/25 13:16 CBC Auto Diff [Complete Blood Count AUTO DIFF] Stat CMP [Comprehensive Metabolic Panel] Stat ETOH [Ethanol (ETOH)] Stat Troponin I Stat 02/11/25 13:32 urine tox [Urine Drug Screen, Rapid] Stat Discontinued Medications Lidocaine HCl (Lidocaine Viscous 2% 15 Ml Solution) 15 ml 0.2 ml/kg (15 ml) PO NOW ONE Stop: 02/11/25 13:21 Last Admin: 02/11/25 13:30 Dose: 15 ml Documented By: RB Ondansetron HCl (Ondansetron 4 Mg/2 Ml Inj) 4 mg IV Q2HR ONE Stop: 02/11/25 14:41 Last Admin: 02/11/25 14:46 Dose: 4 mg Documented By: SBF Reevaluation(s) Reevaluation #1: [id number] Patient re-evaluated. He states that he feels much better and was able to tolerate p.o. intake without nausea or vomiting. Burning has improved. He has a headache and is requesting Tylenol. I discussed workup results as well as recommendations from poison control. Vital Signs Vital signs: Vital Signs - 8 hr 02/11/25 12:38 02/11/25 12:55 02/11/25 13:00 Temperature 98.6 F Pulse Rate 86 82 Respiratory Rate 16 22 Blood Pressure 158/84 H 145/91 H Pulse Oximetry 97 98 Oxygen Delivery Method Room Air 02/11/25 13:00 02/11/25 13:30 02/11/25 14:00 Temperature Pulse Rate 78 82 68 Respiratory Rate 24 18 22 Blood Pressure Pulse Oximetry 98 98 98 Oxygen Delivery Method 02/11/25 14:30 02/11/25 15:00 02/11/25 15:29 Temperature Pulse Rate 89 85 Respiratory Rate 18 20 Blood Pressure 133/86 Pulse Oximetry 98 99 Oxygen Delivery Method 02/11/25 15:29 02/11/25 15:30 02/11/25 16:00 Temperature Pulse Rate 84 86 72 Respiratory Rate Blood Pressure Pulse Oximetry 94 93 100 Oxygen Delivery Method MDM - Nausea/Vomiting/Diarrhea Lab Data 02/11/25 13:16 02/11/25 13:16 Labs: Lab Results 02/11/25 02/11/25 Range/Units 13:16 13:32 WBC 9.5 (4.5-11.0) X10^3/uL RBC 4.84 (4.5-5.9) X10^6/uL Hgb 14.8 (13.5-17.5) g/dL Hct 42.9 (41-53) % MCV 88.6 (80-100) fL MCH 30.6 (26-34) PG MCHC 34.5 (30-36) % RDW 12.9 (11.6-14.8) % Plt Count 291 (150-400) X10^3/uL Neut % (Auto) 82.3 H (50-75) % Lymph % (Auto) 11.7 L (25-40) % [place] % (Auto) 5.4 (3-14) % Eos % (Auto) 0.3 L (2-4) % Baso % (Auto) 0.3 (0-2) % Neut # (Auto) 7800 H (3884-8355) /uL Lymph # (Auto) 1100 (8469-3037) /uL [place] # (Auto) 500 (0-900) /uL Eos # (Auto) 0 (0-450) /uL Baso # (Auto) 0 (0-100) /uL Sodium 140 (137-145) mmol/L Potassium 4.0 (3.4-5.1) mmol/L Chloride 104 (98-107) mmol/L Carbon Dioxide 24 (22-32) mmol/L BUN 12 (9-20) mg/dL Creatinine 0.63 L (0.66-1.25) mg/dL Estimated GFR > 60 (>60) mL/min BUN/Creatinine Ratio 19.0 (6-22) Glucose 110 H (70-99) mg/dL Calcium 9.9 (8.4-10.2) mg/dL Total Bilirubin 0.7 (0.2-1.3) mg/dL AST 33 (17-59) IU/L ALT 18 (<50) IU/L Alkaline Phosphatase 92 (38-126) U/L Troponin I < 0.012 (0.01-0.034) ng/mL Total Protein 9.1 H (6.3-8.2) g/dL Albumin 4.9 (3.5-5.0) g/dL Globulin 4.2 H (1.7-4.1) g/dL Albumin/Globulin Ratio 1.2 (1.0-2.8) U Opiates 300ng/mL cut Negative (Negative) Ur Oxycodone Screen Negative (Negative) Urine Methadone Screen Negative (Negative) Ur Barbiturates Screen Negative (Negative) U Tricyclic Antidepress Negative (Negative) Ur Phencyclidine Scrn Negative (Negative) Ur Amphetamines Screen Positive H (Negative) U Methamphetamines Scrn Positive H (Negative) Ur MDMA Scrn (Ecstasy) Negative (Negative) U Benzodiazepines Scrn Negative (Negative) Urine Cocaine Screen Negative (Negative) U Marijuana (THC) Screen Positive H (Negative) Urine pH Normal (Normal) Urine Specific [place] Normal (Normal) Ethyl Alcohol < 10 (<10) mg/dL Ur Creatinine Normal (Normal) Discharge Plan Departure Prescriptions: No Action acetaminophen 325 mg Tablet 975 mg PO Q8H Qty: 100 0RF methadone 10 mg Tablet 20 mg PO QID Qty: 30 0RF ibuprofen 400 mg Tablet 600 mg PO Q8HR Qty: 90 0RF gabapentin 100 mg Capsule 100 mg PO TID Qty: 90 0RF hydromorphone 2 mg Tablet 4 mg PO Q3H PRN (Reason: Pain, Severe (7-10)) Qty: 12 0RF Referrals: Miscellaneous,Doctor, [Primary Care Provider, Medical]
[2025-02-11] MEDS: ACETAMINOPHEN 325 MG TABLET 650 MG PO (17:00)
== END 2025-02-11 17:00 | disposition home or self-care (01) ==
PROVIDERS: Emergency Provider Student in an Organized Health Care Education/Training Program
DX: R11.2 Nausea with vomiting, unspecified (principal); R51.9 Headache, unspecified; F15.10 Other stimulant abuse, uncomplicated
CPT/HCPCS: 71045; 80053; 80305; 80320; 84484; 85025; 93005; 96374; 99284; J2405